=== PATIENT | male | born 1940 | race Caucasian/White ===

== ENCOUNTER → 2016-08-20 | Outpatient (CLI) | payer MEDICARE, MEDICAID ==
[~2016-08-20] MED LIST: AC325T PO; ALBU2.5V12 INH; ALBU2.5V4 INH; ALBU8.5H4 IH; ASPI-586 PO; ASPI325T4 PO; ATEN100T13 PO; ATN50T PO; AZTH250C PO; BDS2MA INH; BENZ200C43 PO; BISM262O24 PO; BSC10SU PR; BUDE0.253 INH; CARB400T PO; CRB200T PO; DOCU-243 PO; DUONEB 0.5 MG-33 ML IH; ENXP40I.4 SC; FLC1T PO; GFN600TCR PO; GUAI600T45 PO; HOME MEDS; HYPR15DR11 OP; IPRA0.2S50 IH; LEVE250T5 PO; LEVO500T16 PO; LISI-594 PO; LORA0.5T PO; LSNP10T PO; LSNP20T PO; MAG-65 PO; MAGN800O PO; METH4TAB27 PO; MORP15TA PO; MORP15TA8 PO; MORP30TA16 PO; MORP60CP12 PO; MULT-955 PO; NF-ESOM40C PO; NITR0.4T7 SL; OMEP20CA12 PO; ONDN4T PO; PHEN32.4 PO; PHEN60TA9 PO; POLYETHYLENE GL17 GM PO; PRD10T PO; PREN1TAB71 PO; RSP.25T PO; SERT50TA2 PO; Sodium Chloride IV; TAMS-8 PO; THIA100T66 PO; TIOT18CA IH; ZLP10T PO
--- NOTE | 2016-08-20 13:39 | Diagnostic Imaging Report ---
PROCEDURE: CT abdomen and pelvis without contrast. TECHNIQUE: Multiple contiguous axial images were obtained through the abdomen and pelvis without the use of intravenous contrast. INDICATION: Abdominal aortic aneurysm. FINDINGS: There is a dense area of consolidation at the left lung base suspicious for pneumonia. There is tortuosity of the abdominal aorta. There is calcific atherosclerosis. There is aneurysmal dilatation of the infrarenal segment of the abdominal aorta. It has maximum transverse measurements of 49 x 48 mm. It is not appreciably changed in comparison with exam from 02/04/2016. There is no evidence of rupture. The liver appears normal. The gallbladder is present. Spleen is not enlarged. Adrenals and kidneys are unremarkable. There are degenerative changes of the spine. Prostate is enlarged. IMPRESSION: Infrarenal abdominal aortic aneurysm appears unchanged compared to 02/04/2016. There is an infiltrate present at the left lung base suspicious for pneumonia. Dictated by: Dictated on workstation # [id number]
== END ==
LOC: RAD 09:56
PROVIDERS: ATTEND Surgery
DX: I71.4 Abdominal aortic aneurysm, without rupture (principal)
CPT/HCPCS: 74176

== ENCOUNTER → 2016-11-28 | Emergency (ER) | payer MEDICARE, MEDICAID ==
[~2016-11-28] VITALS: Ht 177.8 cm; Wt 57.4 kg
[~2016-11-28] MED LIST changes: +ALBUTEROL 0.083% NEB SOLUTION 2.5 MG/3 ML VIAL INH ONE; +GUAI120013 PO; +IBP200T PO; +MORP30TA60 PO; +NS IV 500 ML 500 ML IV SCH; +PENT400T2 PO; +POLY17PO6 PO; +SODIUM CHLORIDE FLUSH 10 ML SYR IV PRN; +SODIUM CHLORIDE FLUSH 3 ML SYR IV ONE; +[UNRECOGNIZED DRUG - CODE] PO
--- OUTSIDE RECORDS SUMMARY | 2016-11-28 10:47 | XMS REPORT | Continuity of Care Document ---
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 Role Phone [employer] Unavailable Unavailable Problems Problem Status Onset Date Classification Date Reported Comments Source Epileptic seizures Active Medical 11/27/2006 [facility] Angiography of coronary bypass, unilateral selective injection Active Medical 11/27/2006 [facility] Medications Medication Details Route Status Patient Instructions Ordering Provider Order Date Source Lortab 5/500 oral tablet PO Completed hold for sedation ONI 05/28/2010 [facility] Allergies, Adverse Reactions, Alerts Substance Category Reaction Severity Reaction type Status Date Reported Comments Source penicillin Datatype(AL1.2)-Drug Allergy ACTIVE 09/12/2012 [facility] NKA CANCELED 09/12/2012 [facility] Immunizations Immunization Date Given Site Status Last Updated Comments Source pneumococcal 23-valent vaccine 08/31/2010 Left Deltoid completed SEARS [facility] Results Order Name Results Value Reference Range Date Interpretation Comments Source Discharge Summary Discharge Summary DATE OF ADMISSION: 09/09/2010 DATE OF DISCHARGE: 09/10/2010 FINAL DIAGNOSES: Acute alcohol intoxication.Polysubstance abuse.Recent community-acquired pneumonia.Recent acute exacerbation of chronic obstructive pulmonary disease.Tobacco abuse.Seizure disorder.History of cerebrovascular accident.Hypertension.Hyperlipidemia.Medical noncompliance. CONSULTANTS: None. PROCEDURES PERFORMED: None. HISTORY OF PRESENT ILLNESS AND ADMITTING PHYSICAL EXAM: Both are well documented in the History and Physical. HOSPITAL COURSE: This patient was admitted for acute alcohol intoxication. He had just been discharged from the hospital several hours before. He had proceeding to a friends house where he took some Lortab and drank 1 pint of whiskey. He then became lethargic and urinated on her floor, prompting her to call paramedics who took her to the Emergency Department where he was readmitted. He has no intention to stop drinking alcohol. He is not interested in alcohol treatment. He has been released recently from the [facility] where he was incarcerated for multiple serial offenses of driving while intoxicated apparently. He has an unstable social situation. He has apparently been band from the [facility], as well as another homeless senior living in [facility]. He has 1 daughter who has not spoken to him in 25 years because of his behavior and alcoholism. He is medically stable for discharge at this time, but placement is pending. workforce services representative is working closely with him. He is at this time refusing to consider senior living placement or treatment for alcohol and drug abuse. PHYSICAL EXAMINATION: VITAL SIGNS: Temperature 36.5, pulse 71, respiratory rate 16, blood pressure 149/81. HEENT: Head: Normocephalic and atraumatic. Pupils: Equally round and reactive to light. Extraocular muscles: Intact. Oropharynx: Clear. Mucous membranes: Moist. NECK: Supple. No jugular venous distention or thyroid enlargement. CARDIOVASCULAR: Regular rate and rhythm. PULMONARY: Clear bilaterally. No rales, rhonchi, or wheezes. GI: Abdomen soft, nontender to palpation, nondistended. Normoactive bowel sounds are present. No masses or hepatosplenomegaly. MUSCULOSKELETAL: Extremities are warm and dry with no cyanosis, clubbing, or edema. NEUROLOGICAL EXAM: Nonfocal. DISCHARGE MEDICATIONS: Tylenol 650 mg every 4 hours as needed for pain or fever.Albuterol inhaler 2 puffs q.i.d.Aspirin 81 mg daily.Atenolol 100 mg daily.Atrovent inhaler 2 puffs q.i.d.Budesonide nebulizer 0.5 mg every 12 hours.Tegretol 400 mg b.i.d.Levaquin 750 mg daily.Lisinopril 10 mg daily.[place] nasal spray every 4 hours as needed.Phenobarbital 200 mg b.i.d.Prednisone taper as directed.Albuterol and Atrovent nebulizer every 4 hours. DIET: Step 1. No alcohol. ACTIVITY: As tolerated. FOLLOW-UP: Patient is to follow up with the [facility] in 1 week. DICTATED BY: Tammy Haro cc:[employer] TR: alma DR: DE: JOB#: [id number] [Electronically Signed on 09.10.2010 12:40 pm] Tammy Haro, DO </br> 09/10/2010 [Electronically Signed on 09.10.2010 12:40 pm] Tammy Haro DO [facility] Emergency Room Documents Emergency Room Documents Patient: SANTOS THOMAS Age: 70 years Sex: Male : 1940 Associated Diagnoses: None Author: Cam Nino MD Basic Information History source: [facility]. Vital signs: , First ED Vitals (09/09/10 19:28) Temp BP Pulse RR SAO2 O2 Flow Rate MAP 36.9 149/73 80 20 95 Most Recent Vitals (as of 09/09/10 22:30) Temp BP Pulse RR SAO2 O2 Flow Rate MAP 36.9 112/62 79 20 97 Vitals Range (09/09/10 19:28 to 09/09/10 22:30) Temp BP Pulse RR SAO2 O2 Flow Rate MAP 36.9 96-149 71-80 20 95-97 50-94 Oxygen saturation: Oxygen Therapy & Oxygenation Information, 09/09/10 19:28 Oxygen Therapy Room air Oxygen Saturation 95 % 09/09/10 11:28 Oxygen Therapy Room air Oxygen Saturation 95 % 09/09/10 09:41 Oxygen Therapy Room air Oxygen Saturation 97 % 09/09/10 08:16 Oxygen Therapy Room air Oxygen Saturation 96 % 09/09/10 08:11 Oxygen Therapy Room air Oxygen Saturation 98 % 09/09/10 08:10 Oxygen Therapy Room air Oxygen Saturation 96 % 09/09/10 06:10 Oxygen Therapy Room air 09/09/10 04:13 Oxygen Therapy Room air 09/09/10 03:44 Oxygen Therapy Room air Oxygen Saturation 96 % 09/09/10 02:09 Oxygen Therapy Room air 09/09/10 00:30 Oxygen Therapy Room air 09/08/10 23:31 Oxygen Therapy Room air Oxygen Saturation 94 % 09/08/10 23:14 Oxygen Therapy Room air Oxygen Saturation 94 % 09/08/10 22:07 Oxygen Therapy Room air 09/08/10 21:41 Oxygen Therapy Room air Oxygen Saturation 98 % 09/08/10 20:27 Oxygen Therapy Room air 09/08/10 20:13 Oxygen Therapy Room air Oxygen Saturation 99 % 09/08/10 15:59 Oxygen Therapy Room air Oxygen Saturation 96 % 09/08/10 15:50 Oxygen Therapy Room air Oxygen Saturation 93 % 09/08/10 12:26 Oxygen Therapy Room air Oxygen Saturation 92 % 09/08/10 12:10 Oxygen Therapy Room air Oxygen Saturation 92 % 09/08/10 08:20 Oxygen Therapy Room air Oxygen Saturation 92 % 09/08/10 08:19 Oxygen Therapy Room air Oxygen Saturation 92 % 09/08/10 08:18 Oxygen Therapy Room air Oxygen Saturation 91 % 09/08/10 06:00 Oxygen Therapy Room air 09/08/10 04:51 Oxygen Therapy Room air Oxygen Saturation 94 % 09/08/10 04:40 Oxygen Therapy Room air 09/08/10 02:17 Oxygen Therapy Room air 09/08/10 01:11 Oxygen Therapy Room air Oxygen Saturation 96 % 09/08/10 00:42 Oxygen Therapy Room air Measurements. 09/09/10 03:48 Height 172.7 cm Weight Weight Weight 69.000 kg Scale Digital (Pt. & bed) Current BMI 23 09/08/10 15:49 Height 172.7 cm Weight 67.400 kg Admission Weight 67.20 kg [place] Body Weight Adult 70.5 kg Percent [place] Body Weight 96 % Body Mass Index 22.6 09/08/10 04:51 Height 172.7 cm Weight 67.400 kg Weight Weight Scale Digital (Pt. & bed) Current BMI 23 Arrival mode: Ambulance. Medications: . Prescriptions and Home Medications aspirin, 81 mg, daily PO, 0, 0 atenolol, 100 mg, daily PO, 0, 0 lisinopril, 10 mg, daily PO, 0, 0 phenobarbital, 200 mg, BID ipratropium (Atrovent HFA), 2 Puff(s), INH, QID albuterol (Albuterol HFA), 4 mg, INH, QID carbamazepine, 400 mg, 2 Tab, PO, BID Sabx-Xjtlxhtdl-Qnlkeeemijp, 3 mL, NEB, RQ4H, dispense 1 month supply with no refills acetaminophen, 650 mg, 2 Tab, PO, Q4H, PRN: Temp >38.4 C Resp-Budesonide (budesonide 1 mg/2 mL inhalation suspension), See Instructions, 0.5 mg po q12 hours acetaminophen-hydrocodone (Lortab 5/500 oral tablet), 1 Tab, PO, Q4H, hold for sedation, 180 Tab, PRN: pain sodium chloride nasal ([place]), 1 [place], NASAL, Q4H, 1 EA, PRN: Nasal Congestion predniSONE (predniSONE 10 mg oral tablet), 10 mg, 1 Tab, PO, daily, Take 40 mg for 3 days then 30 mg for 3 days then 20 mg for 3 days then 10 mg for 3 days then stop., Tab levofloxacin (Levaquin 750 mg oral tablet), 750 mg, 1 Tab, PO, daily, 4 Tab Allergies: . Allergic Reactions (Selected) Severity not Documented Penicillin- No reactions were documented. History limitation: Clinical condition. Notes: Chief Complaint from Nursing Triage Note : Reason for Visit Additional Info, 09/09/10 19:28 Reason for Visit Additional Info PT JUST RELEASED FROM HOSPITAL THIS AM. PT WAS STAYING WITH SOME FRIENDS IRENA, SHE TOOK HIS LORTAB AND DRANK A PINT OF WHISKEY. FRIENDS COULD NOT TAKE CARE OF HIM , PT WAS INCONTINENT OF URINE. . Health History ED ED Cardiac Medical History: Yes, open heart, ED Dyslipidemia: Yes, on meds ED Respiratory Medical History: Yes, copd ED Neurological Medical History: Yes, seziures ED Diabetes Medical History: No ED High Blood Pressure Medical History: Yes, on meds ED Currently : No ED LMP: No ED Previous Surgeries: Yes, left shoulder, left leg ED Other Medical Hx: No ED Smoking Hx: Yes, 1/2ppd Exposed to Second Hand Smoke: Yes ED Tetanus < 5 years: No History of Present Illness The patient is a 70 years old Male who presents with alcohol intoxication. The last alcohol intake was unknown. Amount: Whiskey and Lortab, unclear amount. Eligibility for legal hold: negative. Other substances ingested: unknown. Circumstances of ingestion: recreational. Patient was returned to the ED via EMS after leaving the hospital today. Patient had been treated for community aquired pneumonia and was discharged into [facility] care. Patient reportedly left and began drinking whiskey and taking his Lortab. Patient became increasingly somnolent and began urinating on the floor. The people were unable to continue his care and returned him to the ED. . The patient is a 70 years old Male who presents with altered mental status. Duration lasting since leaving the hospital today. The onset was gradual. The course is constant. Altered mental status symptoms confusion and speech difficulty. Social dysfunction: need for help with activities of daily living. The exacerbating factor is medication change. The mitigating factor is negative. substance(s) ingested: Positive alcohol use. The risk factor is medication(s). Prior episodes: Chronic alcohol abuse. Associated Symptoms Icterus: Negative. Chest pain: Negative Diaphoresis: None. Difficulty breathing: None. Difficulty swallowing: None. Nausea: Negative. Vomiting episodes: Negative. Abdominal pain: Negative Baseline neuro change: Negative. Review of Systems Peptic disease history: Unknown. Liver disease history: Unknown. Immunocompromise: Negative. Coagulopathy: Negative. Psychiatric symptoms: Negative. Psychiatric admission history: No. Drug or alcohol treatment: None. Alcohol withdrawal history: Negative. Other significant review of systems Unable to obtain due to: altered mental status Past Medical/ Family/ Social History Medical history: Reviewed as documented in chart, Cardiac: Coronary artery disease, Respiratory: Chronic obstructive pulmonary disease, Additional significant medical history: Alcoholism, PNEUMONIA. Surgical history: Reviewed as documented in chart, angioplasty, CABG. Family history: Reviewed as documented in chart, Coronary Artery Disease. Social history: Reviewed as documented in chart, Alcohol: Uses alcohol regularly , history of alcohol abuse, Tobacco: Uses tobacco products regularly, smokes 1 pack(s) per day, Drugs: Denies drug use, Occupation: Retired, Family/social situation: , lives alone. Physical Examination General appearance: No acute distress. Skin: Warm. Dry. Facial: Within normal limits Scalp: Within normal limits. Neck: Supple. Eye: Pupils equal, round, and reactive to light. Extraocular movements intact. Ears, nose, mouth and throat: Oral mucosa moist Heart: Regular rate and rhythm, normal S1 & S2. Respiratory: Lungs clear to auscultation bilaterally. Respirations nonlabored. Abdominal: Normal bowel sounds. Soft. Nontender. Neurological: Alert. No focal neuro deficits. Level of consciousness lethargic. Psychiatric: Agitated. Medical Decision Making Clinical work-up/Interpretation Electrocardiogram: Time 09/09/2010 19:58:00. Rate: 79. Normal sinus rhythm. No ST-T changes. No ectopy. Normal NV & QRS intervals. Previous EKG available: no changes. Interpretation by Emergency Physician: no ischemic changes. Results: Lab View. 09/09/10 03:50 WBC 9.0 x10^3/uL RBC 4.03 x10^6/uL LOW Hgb 11.8 gm/dL LOW Hct 34.2 % LOW MCV 85 fL MCH 29.3 pg MCHC 34.5 gm/dL RDW 16.2 % HI Platelet 261 x10^3/uL Chest X-Ray: Interpretation by Emergency Physician, Chronic interstitial infiltrates. Calls-Consults: Masood Cochran MD. Reexamination/Reevaluation Reexamination: Course: improving. Impression and Plan Diagnosis Continuous alcohol abuse 305.01 (ICD9 305.01, Discharge, Emergency medicine, Medical) Drug abuse 305.90 (ICD9 305.90, Discharge, Emergency medicine, Medical) Altered mental status ([facility] [id number], Discharge, Medical) Discharge plan Condition: Unchanged. Admit: Time 09/09/2010 22:54:00, To Inpatient Unit. Emergency Medical Treatment and Active Labor Act/Prudent layperson: Emergency Medical Condition Exists at Discharge: Present. 09/09/2010 [facility] DRUGS Amphetamine Level Negative 09/09/[address] [facility] [address] Head W/O Contrast CT Head W/O Contrast CT HEAD WITHOUT CONTRAST INDICATION: Headaches. Comparison is made with prior exam dated . Non contrasted axial CT of the head was performed. There is no evidence of calvarial injury. No extracalvarial soft tissue swelling seen. There is no midline shift or mass effect. The ventricular system appears stable. The mcdonough-white matter junction appears stable. Severe atrophy is noted. Moderate deep white matter chronic small vessel disease is present. Paranasal sinuses appear to be clear. IMPRESSION: Stable, No acute findings. Final Report Dictated By: Chase Gardner MD Signed By: Chase Gardner MD Signed Dt/tm: 09/09/2010 21:39 Transcribed Dt/tm: 09/09/2010 21:39</br> Clinical History Current History Pts. friends state "he drank a pint of whiskey." Pt. uncontrollable. Incontinant of urine. Previous History/Surgery / 09/09/2010 Final Report Dictated By: Chase Gardner MD Signed By: Chase Gardner MD Signed Dt/tm: 09/09/2010 21:39 Transcribed Dt/tm: 09/09/2010 21:39 [facility] CHEM12 eGFR >60 mL/min >=60 09/09/2010 N Estimated eGFR Non calculated using MDRD study equation Result Verified by Discern Expert. The MDRD GFR formula is valid only for adults between 18 and 85 years of age. [facility] CHEM12 eGFR () >60 mL/min >=60 2010 N Estimated GFR for an calculated using MDRD study equation. Result Verified by Discern Expert. [facility] ALC Alcohol Level 125.1 mg/ dL - <=3.0 09/09/2010 HI Results are for medical use only. [facility] SILVIA Amylase 39 IU/L 23 - 85 09/09/2010 N [facility] CHEM12 Glucose Level 64 mg/ dL 60 - 99 09/09/2010 N [facility] CKMB CK MB 2.3 ng/mL 0.0 - 3.6 09/09/2010 N [facility] CPK CPK 85 IU/L 21 - 232 09/09/2010 N [facility] LIP Lipase 102 U/L 73 - 393 09/09/2010 N [facility] TROPON Troponin <0.04 ng/mL - <=0.09 09/09/2010 N Result Range Troponin Interpretation <0.1 ng/ml No evidence of myocardial ischemia 0.1 - 0.6 ng/ml Possible myocardial ischemia (ACS) >0.6 ng/ml Acute myocardial infarction (AMI) [facility] APTT APTT 29.1 second(s) 20.5 - 31.0 09/09/2010 N [facility] Protime INR 0.96 - <=1.20 09/09/2010 N Therapeutic range for INR is 2.0-3.0, except for mechanical prosthetic valves and recurrent myocardial infarction where therapeutic range is 2.5-3.5. [facility] CHEM12 Sodium 129 mmol/L 135 - 145 09/09/2010 LOW [facility] -RBC Morphology RBC Morph Normal Normal 09/09/2010 N Discern Expert [facility] [employer] -Auto Diff Abs Lymph 2.700 x10^3/uL .800 - 4.320 2010 N [facility] CBC with Diff MCH 29.0 pg 27.0 - 31.0 09/09/[address] [facility] DX Chest 1 View DX Chest 1 View SANTOS SANTAMARIAISER SINGLE VIEW CHEST INDICATION: Shortness of breath, chest pain. TIME OF EXAMINATION: 09/09/2010. COMPARISON: 09/07/2010. The heart is normal. There is a tortuous aorta. The lungs demonstrate chronic interstitial changes. No focal consolidation is seen. Patchy opacities are again noted in the right lung. IMPRESSION: Nonspecific patchy opacities, stable chest compared to prior examination of 09/07/2010. Final Report Dictated By: Chase Gardner MD Signed By: Chase Gardner MD Signed Dt/tm: 09/09/2010 23:31 Transcribed By: AC Transcribed Dt/tm: 09/09/2010 23:27</br> Clinical History Current History increased sob x 2 days, productive cough Previous History/Surgery epilepsy, open heart, copd, htn, smoker 09/09/2010 Final Report Dictated By: Chase Gardner MD Signed By: Chase Gardner MD Signed Dt/tm: 09/09/2010 23:31 Transcribed By: AC Transcribed Dt/tm: 09/09/2010 23:27 [facility] Discharge Summary Discharge Summary DATE OF ADMISSION: 09/06/2010 DATE OF DISCHARGE: 09/09/2010 FINAL DIAGNOSES: 1.Community-acquired pneumonia. 2.Chronic obstructive pulmonary disease with acute exacerbation. 3.Tobacco abuse. 4.Alcohol abuse. 5.Seizure disorder. 6.History of cerebrovascular accident. 7.Hypertension. 8.Hyperlipidemia. 9.Hypokalemia. 10.Medical noncompliance. CONSULTANTS: None. PROCEDURES PERFORMED: None. History of present illness and admitting physical examination are both well- documented in the History and Physical. HOSPITAL COURSE: The patient was readmitted to the hospital 5 days after being discharged for an acute exacerbation of chronic obstructive pulmonary disease. It was felt that he had been noncompliant at home and had resulted smoking. He was coughing and more short of air. His x-ray showed some patchy infiltrate on the right side. He was placed on Rocephin and Zithromax as well as Solu-Medrol nebulized bronchodilators. He has gradually improved. He does abuse whiskey as well. He was placed on alcohol withdraw protocol. Today, he is back on room air. His breathing is at baseline. He is eager to go home. This time, he is going to go home with some friends and stay in their house. Will order Home Health Services for him as well. He is medically stable for discharge. PHYSICAL EXAMINATION: Vital signs: Temperature 36.4, pulse 76, respiratory rate 16, blood pressure 151/74. Oxygen saturation 96% on room air. HEENT: Head normocephalic, atraumatic; pupils are equal, round and reactive to light; extraocular muscles are intact; oropharynx clear; mucous membranes moist. Neck : Supple, no jugular venous distention or thyroid enlargement. Cardiovascular : Heart regular rate and rhythm. Pulmonary: Chest clear bilaterally with decreased breath sounds at the bases. No rales, rhonchi or wheezes. GI: Abdomen obese, soft, nontender, nondistended, normoactive bowel sounds are present, no masses or hepatosplenomegaly. Musculoskeletal: Extremities are warm and dry with no cyanosis, clubbing or edema. Neurological exam: Nonfocal. DISCHARGE MEDICATIONS: 1.Tylenol 650 mg every 4 hours as needed for fever. 2.Albuterol inhaler 4 times daily. 3.Aspirin 81 mg daily. 4.Atenolol 100 mg daily. 5.Atrovent inhaler 2 puffs 4 times daily. 6.Levaquin 750 mg daily for 4 additional days. 7.Budesonide nebulizer 0.5 mg every 12 hours. 8.Carbamazepine 400 mg b.i.d. 9.Lisinopril 10 mg daily. 10.Lortab 5, 1 every 4 hours as needed for pain. 11.[place] nasal spray as needed. 12.Phenobarbital 200 mg b.i.d. 13.Albuterol and Atrovent nebulizers every 4 hours. 14.Prednisone taper as directed. DIET: Step 1. ACTIVITY: As tolerated. Smoking cessation and alcohol cessation were encouraged. FOLLOW-UP: Patient is to follow-up with [facility] in 1 week. He will have Home Health and home physical therapy as well. DICTATED BY: Tammy Haro cc: TR: len DR: DE: JOB#: [id number] [Electronically Signed on 09.10.2010 08:38 am] Tammy Haro DO </br> 09/09/2010 [Electronically Signed on 09.10.2010 08:38 am] Tammy Haro DO [facility] CBC (NO DIFFERENTIAL) RDW 16.2 % 11.7 - 16.0 2010 [place] [facility] History and Physical History and Physical DATE OF ADMISSION: 09/09/2010 at 192. DATE OF : 1940 HISTORY OF PRESENT ILLNESS: This 70-year-old white male was admitted via the emergency room where he presented at 1928. He had been discharged this morning from this hospital. He was staying with some friends. He took his Lortab and then he drank a pint of whiskey, then he got incontinent and his friend said they could not take care of him. His discharge medications are listed under his home medications. REVIEW OF SYSTEMS: Positive for HPI and PMHx. the remainder is negative on a 10 point system. ALLERGIES: PENICILLIN. PAST MEDICAL HISTORY: Coronary artery disease, dyslipidemia, COPD, seizures, hypertension. PAST SURGICAL HISTORY: He has had open heart surgery. He has had a left shoulder surgical and left leg surgery. SOCIAL HISTORY: He still drinks consistently, too much. Smokes a half a pack of cigarettes a day, which is down from where he was because he could only smoke a half a pack today. He was only out of here a half a day. He came in with altered mental status, confusion, having trouble with speech. PHYSICAL EXAMINATION: Vital signs: His vital signs on admission show a height of 172.7 cm, weight 68.5 kg. BMI is 23. Temperature is 36.9. Pulse 75. Respirations 22. Blood pressure is 162/87. Pulse ox on room air 95% to 97%. HEENT: The head is normocephalic. Pupils are equal, round, and reactive to light. Extraocular muscles are grossly intact. Chest: Decreased breath sounds overall with some prolonged expiratory time. I do not hear any wheezes, rales or rhonchi at the moment. LABORATORY DATA: Laboratory studies are reviewed as well. His blood alcohol was 125. IMPRESSION: 1. Acute on chronic alcoholism, acutely intoxicated. 2. Chronic obstructive pulmonary disease, recent pneumonia. 3. Obvious incapacity to care for self. PLAN: Admit until he can be sobered up. Then he needs to be placed in some facility to help prevent his alcohol intake recurrence. Otherwise, this gentleman is going to wind up from his alcoholism and his underlying multiple medical problems. He is to follow up with [facility] in a week. We are trying to get home health and home PT. My intent was to try to get him to skilled, but he would not go. DICTATED BY: Masood Cochran cc: TR: ross DR: DE: JOB#: [id number] [Electronically Signed on 09.15.2010 01:15 pm] Masood Cochran MD </br> 09/09/2010 [Electronically Signed on 09.15.2010 01:15 pm] Masood Cochran MD [facility] Progress Note Progress Note Patient: SANTOS THOMAS Age: 70 years Sex: Male : 1940 Associated Diagnoses: None Author: Masood Cochran MD Subjective He is more alert today and seems to be oriented today. He is feeling better today and is asking to go home. I told him we would not even talk about it until tomorrow and no promises even then. Objective Problem list: . All Problems Angiography of coronary bypass, unilateral selective injection / [id number] / Confirmed Epileptic seizures / [id number] / Confirmed Fall risk / [id number] / Possible Pain / [id number] / Confirmed Visual impairment / [id number] / Confirmed Procedure History: . left shoulder in 2009 at 69 Years. open heart in 1999 at 59 Years. open heart in 1995 at 55 Years. left ankle in 1993 at 53 Years. Vitals (24 hour summary) Temperature Heart Rate Respiratory BP Sys BP Leticia O2 Sat Height Weight 36.3 - 37.0 63 - 86 16 - 23 127 - 145 70 - 93 91 - 98 172.7 cm 67.400 kg Most Recent Vitals (09/08/10 08:18 - 09/08/10 08:20) 36.5 74 18 141 70 92 Intake & Output Summary (09/07/10 07:00 to 09/08/10 06:59) Intakes Units Total Oral Intake mL 1140 Sodium Chloride 0.45% with 20meq KCl 1,000 mL mL 870 azithromycin mL 500 ceftriaxone mL 50 methylprednisolone mL 8 Oral Intake mL 960 Outputs Units Total Urine Voided mL 2850 Summary Kinrbe=[id number] Arozpg=4091 Mktxtfj=177 Medication Dose Frequency acetaminophen 650 mg=2 Tab PRN, Q4H acetaminophen-hydrocodone 1 Tab PRN, Q4H aspirin 81 mg=1 Tab daily atenolol 100 mg=2 Tab daily azithromycin 500 mg=2 Tab Q24H, 4 Dose(s) carbamazepine 400 mg=2 Tab BID ceftriaxone 1 gm=50 mL Q24H enoxaparin 40 mg=0.4 mL Q24H lisinopril 10 mg=1 Tab daily lorazepam 4 mg=2 Tab PRN, Q2H lorazepam 4 mg=2 mL PRN, Q2H methylprednisolone 125 mg=2 mL Q6H ondansetron 4 mg=2 mL PRN, Q6H pantoprazole 40 mg=1 Tab daily phenobarbital 200 mg=2 Tab BID Resp-Albuterol- 3 mL RQ4H Ipratropium Resp-Albuterol- 3 mL PRN, RQ2H Ipratropium Resp-Budesonide 0.5 mg=2 mL RBID sodium chloride nasal 1 [place] PRN, Q4H temazepam 15 mg=1 Cap PRN, AT BEDTIME IV Drip Medication Dose Rate Sodium Chloride 0.45% 1,000 mL 100 mL/hr with 20meq KCl 1,000 mL Results Review: Laboratory Results: . Procedure 09/08/10 09/07/10 09/06/10 Complete Blood Count WBC: 10.1 23:15 RBC: 4.78 23:15 Hgb: 14.1 23:15 Hct: 40.4 23:15 MCV: 85 23:15 MCH: 29.5 23:15 MCHC: 34.9 23:15 RDW: H 16.7 23:15 Platelet: 296 23:15 Differential Segs Auto: 70 23:15 Lymph Auto: 21 23:15 Evans Auto: 8 23:15 Eos Auto: 0 23:15 Baso Auto: 0 23:15 Abs Neutro: 7.010 23:15 Abs Lymph: 2.140 23:15 Abs Evans: .830 23:15 Abs Eos: .020 23:15 Abs Baso: .020 23:15 RBC Morph: Normal (23:15) General Chemistry Total Protein: 6.6 03:40 6.7 23:15 Albumin Level: L 2.9 03:40 L 3.1 23:15 Calcium: L 8.1 03:40 L 8.3 23:15 Bili Total: 0.3 03:40 0.3 23:15 Alk Phos: H 150 03:40 H 178 23:15 Sodium: L 133 03:40 137 23:15 Potassium: 3.7 03:40 L 3.3 23:15 Chloride: L 93 03:40 98 23:15 TCO2: 29 03:40 32 23:15 Glucose Level: H 328 03:40 H 127 23:15 BUN: 10 03:40 11 23:15 Creatinine: .8 03:40 .7 23:15 eGFR: >60 03:40 >60 23:15 eGFR (): >60 03:40 >60 23:15 ALT/GPT: 56 03:40 57 23:15 AST/GOT: H 49 03:40 H 48 23:15 CPK: 43 23:15 CK MB: 1.1 23:15 Troponin: <0.04 23:15 Ammonia: 24 23:27 Alcohol Level: H 186.8 03:40 H 346.3 23:27 Microbiology Additional Testing Influenza A: Negative (23:27) Influenza B: Negative (23:27) Microbiology Procedure Collected At Culture Blood - Antecub R / Blood 09/06/10 23:15 Pre: No growth in 24 hours. Culture Blood - Antecub R / Blood 09/06/10 23:35 Pre: No growth in 24 hours. Culture Sputum - / Sputum Not started pending Respiratory Results: . No BIPAP or Ventilator settings found for this visit. Radiology Results: . DX Chest 2 View 09/07/10 16:47 1. Severe emphysema. 2. Patchy opacities in the right lung may represent early pneumonic process. Suggest clinical correlation. 3. The left lung is clear.4. The heart is normal in size with changes of previous coronary artery bypass graft surgery Cardiology Results: . No Cardiology documents found within previous day. Pathology Results: . No Pathology documents found within previous day. Physical Examination: General: Mild distress. Eye: Pupils are equal, round and reactive to light, Extraocular movements are intact, Normal conjunctiva. HENT: Normocephalic, Oral mucosa is moist. Neck: Supple, No jugular venous distention. Respiratory: Respirations: Improved. Pattern: Regular. Breath sounds: Bilateral, Diminished, Rhonchi present (scattered). Cardiovascular: Normal rate, Regular rhythm. Gastrointestinal: Soft, Non-tender, Non-distended, Normal bowel sounds. Genitourinary: Exam deferred. Musculoskeletal: Mobility/ gait: Able to walk with minimal assistance, Upper extremity exam is within normal limits, Lower extremity exam is within normal limits. Neurologic: Alert. Coordination: Mild delayed. Altered level of consciousness: Confused (Mildly). Psychiatric: Cooperative. Assessment Shortness of breath ([facility] 519500997) Pneumonia 486 (ICD9 486) COPD with acute exacerbation 491.21 (ICD9 491.21) Epilepsy, Unspecified, without Mention of Intractable Epilepsy (ICD9 345.90) Plan CONTINUE CURRENT ORDERS AND TREATMENTS We will continue IV fluids and antibiotics for min 72 hours. 09/08/2010 [facility] DX Chest 2 View DX Chest 2 View [facility] CHEST TWO VIEWS INDICATION: Evaluate for pneumonia. Cough, fever and shortness of breath. COMPARISON STUDY: 09/06/2010 and 09/01/2010. The patient examined in the wheelchair. There is a faint interstitial alveolar process in the right mid and right lower lung, suspicious for developing pneumonia. Ill-defined hazy opacities are seen in the right upper lung as well. Again changes of severe pleural parenchymal calcification seen along the right chest, unchanged from prior studies. Both lungs are hyperaerated from moderate to severe emphysema. The heart is upper normal in size and there are sternal sutures and clips from previous CABG surgery. There is no large pleural effusion. The skeletal structures remain unchanged. IMPRESSION: 1. Severe emphysema. 2. Patchy opacities in the right lung may represent early pneumonic process. Suggest clinical correlation. 3. The left lung is clear. 4. The heart is normal in size with changes of previous coronary artery bypass graft surgery. Final Report Dictated By: Ian Fu MD Signed By: Ian Fu MD Signed Dt/tm: 09/07/2010 23:39 Transcribed By: AC Transcribed Dt/tm: 09/07/2010 22:23</br> Clinical History Current History weakness, multiobar pneumonia 09-06-10, Previous History/Surgery copd, epilepsy, smoker 09/07/2010 Final Report Dictated By: Ian Fu MD Signed By: Ian Fu MD Signed Dt/tm: 09/07/2010 23:39 Transcribed By: AC Transcribed Dt/tm: 09/07/2010 22:23 [facility] Care Progress Note Progress Note Patient: SANTOS THOMAS Age: 70 years Sex: Male : 38 Associated Diagnoses: None Author: Masood Cochran MD Subjective He is a little confused about some things. Objective Problem list: . All Problems Angiography of coronary bypass, unilateral selective injection / [id number] / Confirmed Epileptic seizures / 177099072 / Confirmed Fall risk / 9200730808 / Possible Pain / 93078602 / Confirmed Visual impairment / 3532589725 / Confirmed Procedure History: . left shoulder in 2009 at 69 Years. open heart in 1999 at 59 Years. open heart in 1995 at 55 Years. left ankle in 1993 at 53 Years. Vitals (24 hour summary) Temperature Heart Rate Respiratory BP Sys BP Leticia O2 Sat Height Weight 36.1 - 36.9 63 - 112 16 - 26 115 - 147 54 - 84 86 - 98 172.7 cm 67.200 kg Most Recent Vitals (09/07/10 12:13 - 09/07/10 12:13) 36.5 79 18 144 84 98 Intake & Output Summary (09/06/10 07:00 to 09/07/10 06:59) Intakes Units Total Oral Intake mL 720 Sodium Chloride 0.9% 1,000 mL + multivitamin 10 mL + thiamine 100 mg + folic acid 1 mg mL 500 levofloxacin mL 0 lorazepam mL 2 methylprednisolone mL 2 Outputs Units Total Urine Voided mL 350 Summary Slbphp=9642 Vstzbg=479 Tzwurzp=207 Medication Dose Frequency acetaminophen 650 mg=2 Tab PRN, Q4H acetaminophen-hydrocodone 1 Tab PRN, Q4H aspirin 81 mg=1 Tab daily atenolol 100 mg=2 Tab daily azithromycin 500 mg=2 Tab Q24H, 4 Dose(s) carbamazepine 400 mg=2 Tab BID ceftriaxone 1 gm=50 mL Q24H enoxaparin 40 mg=0.4 mL Q24H lisinopril 10 mg=1 Tab daily lorazepam 4 mg=2 Tab PRN, Q2H lorazepam 4 mg=2 mL PRN, Q2H methylprednisolone 125 mg=2 mL Q6H ondansetron 4 mg=2 mL PRN, Q6H pantoprazole 40 mg=1 Tab daily phenobarbital 200 mg=2 Tab BID Resp-Albuterol- 3 mL RQ4H Ipratropium Resp-Albuterol- 3 mL PRN, RQ2H Ipratropium Resp-Budesonide 0.5 mg=2 mL RBID sodium chloride nasal 1 [place] PRN, Q4H temazepam 15 mg=1 Cap PRN, AT BEDTIME IV Drip Medication Dose Rate Sodium Chloride 0.45% 1,000 mL 100 mL/hr with 20meq KCl 1,000 mL Results Review: Laboratory Results: . Procedure 09/07/10 09/06/10 09/05/10 Complete Blood Count WBC: 10.1 23:15 RBC: 4.78 23:15 Hgb: 14.1 23:15 Hct: 40.4 23:15 MCV: 85 23:15 MCH: 29.5 23:15 MCHC: 34.9 23:15 RDW: H 16.7 23:15 Platelet: 296 23:15 Differential Segs Auto: 70 23:15 Lymph Auto: 21 23:15 Evans Auto: 8 23:15 Eos Auto: 0 23:15 Baso Auto: 0 23:15 Abs Neutro: 7.010 23:15 Abs Lymph: 2.140 23:15 Abs Evans: .830 23:15 Abs Eos: .020 23:15 Abs Baso: .020 23:15 RBC Morph: Normal (23:15) General Chemistry Total Protein: 6.6 03:40 6.7 23:15 Albumin Level: L 2.9 03:40 L 3.1 23:15 Calcium: L 8.1 03:40 L 8.3 23:15 Bili Total: 0.3 03:40 0.3 23:15 Alk Phos: H 150 03:40 H 178 23:15 Sodium: L 133 03:40 137 23:15 Potassium: 3.7 03:40 L 3.3 23:15 Chloride: L 93 03:40 98 23:15 TCO2: 29 03:40 32 23:15 Glucose Level: H 328 03:40 H 127 23:15 BUN: 10 03:40 11 23:15 Creatinine: .8 03:40 .7 23:15 eGFR: >60 03:40 >60 23:15 eGFR (): >60 03:40 >60 23:15 ALT/GPT: 56 03:40 57 23:15 AST/GOT: H 49 03:40 H 48 23:15 CPK: 43 23:15 CK MB: 1.1 23:15 Troponin: <0.04 23:15 Ammonia: 24 23:27 Alcohol Level: H 186.8 03:40 H 346.3 23:27 Microbiology Additional Testing Influenza A: Negative (23:27) Influenza B: Negative (23:27) Microbiology Procedure Collected At Culture Blood - Antecub R / Blood 09/06/10 23:15 Pre: No growth to date Culture Blood - Antecub R / Blood 09/06/10 23:35 Pre: No growth to date Culture Sputum - / Sputum Not started pending Respiratory Results: . No BIPAP or Ventilator settings found for this visit. Radiology Results: . DX Chest 1 View 09/06/10 22:59 The heart is normal in size. Changes from previous coronary artery bypass graft surgery. Chronic interstitial lung disease and emphysema. Suspect superimposed pneumonia in the right lung Cardiology Results: . No Cardiology documents found within previous day. Pathology Results: . No Pathology documents found within previous day. Physical Examination: General: Mild distress. Eye: Pupils are equal, round and reactive to light, Extraocular movements are intact, Normal conjunctiva. HENT: Normocephalic, Oral mucosa is moist. Neck: Supple, No jugular venous distention. Respiratory: Respirations: Shallow. Pattern: Regular. Breath sounds: Bilateral, Diminished, Rhonchi present (scattered). Cardiovascular: Normal rate, Regular rhythm. Gastrointestinal: Soft, Non-tender, Non-distended, Normal bowel sounds. Genitourinary: Exam deferred. Musculoskeletal: Mobility/ gait: Able to walk with minimal assistance, Upper extremity exam is within normal limits, Lower extremity exam is within normal limits. Neurologic: Alert. Coordination: Mild delayed. Altered level of consciousness: Confused (Mildly). Psychiatric: Cooperative. Assessment Shortness of breath ([facility] 245222169) Pneumonia 486 (ICD9 486) COPD with acute exacerbation 491.21 (ICD9 491.21) Epilepsy, Unspecified, without Mention of Intractable Epilepsy (ICD9 345.90) Plan CONTINUE CURRENT ORDERS AND TREATMENTS WILL GET A PA AND LATERAL CHEST XRAY. 09/07/2010 [facility] CHEM12 eGFR >60 mL/min >=60 09/07/2010 N Estimated eGFR Non calculated using MDRD study equation Result Verified by Discern Expert. The MDRD GFR formula is valid only for adults between 18 and [address] age[address] [facility] ALC Alcohol Level 186.8 mg/ dL - <=3.0 09/07/2010 HI Results are for medical use only. [facility] CHEM12 Albumin Level 2.9 gm/ dL 3.4 - 5.0 09/07/[address] [facility] Emergency Room Documents Emergency Room Documents Patient: SANTOS THOMAS Age: 70 years Sex: Male : 38 Associated Diagnoses: None Author: Stewart Weston MD Basic Information Vital signs: , First ED Vitals (09/06/10 22:35) Temp BP Pulse RR SAO2 O2 Flow Rate MAP 36.1 137/74 107 22 95 Most Recent Vitals (as of 09/06/10 23:50) Temp BP Pulse RR SAO2 O2 Flow Rate MAP 36.1 137/74 96 22 93 Vitals Range (09/06/10 22:35 to 09/06/10 23:50) Temp BP Pulse RR SAO2 O2 Flow Rate MAP 36.1 137 96-107 22 93-95 74 Oxygen saturation: Oxygen Therapy & Oxygenation Information, 09/06/10 23:50 Oxygen Therapy Room air Oxygen Saturation 93 % 09/06/10 22:35 Oxygen Therapy Room air Oxygen Saturation 95 % Measurements. 09/06/10 22:35 Height 172.7 cm Admission Weight 72.72 kg Scale Stated weight Admission BMI 24.4 Medications: . Continuous Infusion Orders Sodium Chloride 0.9% 1,000 mL + multivitamin 10 mL + thiamine 100 mg + folic acid 1 mg, 100 mL/hr, IV, Stop: 09/07/10 9:44:00 Prescriptions and Home Medications aspirin, 81 mg, daily PO, 0, 0 atenolol, 100 mg, daily PO, 0, 0 lisinopril, 10 mg, daily PO, 0, 0 phenobarbital, 200 mg, BID ipratropium (Atrovent HFA), 2 Puff(s), INH, QID albuterol (Albuterol HFA), 4 mg, INH, QID carbamazepine, 400 mg, 2 Tab, PO, BID Jpyo-Wujswokyz-Hfoobudqqea, 3 mL, NEB, RQ4H, dispense 1 month supply with no refills temazepam (Restoril 15 mg oral capsule), 15 mg, 1 Cap, PO, AT BEDTIME, 30 Tab, PRN: sleep acetaminophen, 650 mg, 2 Tab, PO, Q4H, PRN: Temp >38.4 C Resp-Budesonide (budesonide 1 mg/2 mL inhalation suspension), See Instructions, 0.5 mg po q12 hours levofloxacin (Levaquin 500 mg oral tablet), See Instructions, 1 Tab PO daily x 4 days acetaminophen-hydrocodone (Lortab 5/500 oral tablet), 1 Tab, PO, Q4H, hold for sedation, 180 Tab, PRN: pain sodium chloride nasal ([place]), 1 [place], NASAL, Q4H, 1 EA, PRN: Nasal Congestion predniSONE (predniSONE 10 mg oral tablet), See Instructions, 60 mg daily x 2 days , 40 mg daily x 2 days, 30 mg daily x 2 days, 20 mg daily x 2 days, then stop Allergies: . Allergic Reactions (Selected) Severity not Documented Penicillin- No reactions were documented. Notes: Chief Complaint from Nursing Triage Note : Reason for Visit Additional Info, 09/06/10 22:35 Reason for Visit Additional Info Increasing SOB x 2 days. Productive, yellow cough . Health History ED ED Cardiac Medical History: Yes, open heart, ED Dyslipidemia: Yes, on meds ED Respiratory Medical History: Yes, copd ED Neurological Medical History: Yes, seziures ED Diabetes Medical History: No ED High Blood Pressure Medical History: Yes, on meds ED Currently : No ED LMP: No ED Previous Surgeries: Yes, left shoulder, left leg ED Other Medical Hx: No ED Smoking Hx: Yes, 1/2ppd Exposed to Second Hand Smoke: Yes ED Tetanus < 5 years: No History of Present Illness The patient is a 70 years old Male who presents with difficulty breathing. Duration lasting an unknown period of time. The course is increasing. The degree of severity is severe. There are exacerbating factors including exertion , lying down and smoke exposure. There are mitigating factors including oxygen and albuterol. The risk factor is upper respiratory infection exposure. Prior episodes: frequent. Associated Symptoms Constitutional symptoms: Fever, malaise, general weakness. ENT: Sore throat. Nasal congestion. sinus pain. Cardiovascular symptoms: Negative. Respiratory symptoms: Shortness of breath, wheezing. Cough symptoms: Moderate, dry. Oral intake: Decreased appetite. Gastrointestinal symptoms: Negative. Review of Systems Genitourinary symptoms: Negative Musculoskeletal symptoms: Negative Neurologic symptoms: Negative Lymphatic symptoms: Negative Skin symptoms: Negative. Other significant review of systems All other systems reviewed and otherwise negative. All systems reviewed as documented in chart. Past Medical/ Family/ Social History Medical history: Reviewed as documented in chart. Surgical history: Reviewed as documented in chart. Family history: Reviewed as documented in chart. Social history: Reviewed as documented in chart. Problem list: Include problem list, All Problems Angiography of coronary bypass, unilateral selective injection / SNOMED CT 98791815 / Confirmed Epileptic seizures / SNOMED CT 375706036 / Confirmed Fall risk / SNOMED CT 3531773944 / Possible Added by discern expert due to documentation. Pain / SNOMED CT 00016598 / Confirmed Visual impairment / SNOMED CT 0468018408 / Confirmedper nurse's notes. Physical Examination General appearance: Moderate distress, SMELLS OF ETOH. Ears, nose, mouth and throat: Within normal limits Heart: Within normal limits. Perfusion: Within normal limits. Neck: Within normal limits. Respiratory: TACHYPNEIC, BARREL-CHESTED WITH SCATTERED WHEEZES, PROLONGED EXPIRATORY PHASE Chest wall: Within normal limits Extremity: Within normal limits Peripheral edema: Negative Abdominal: Within normal limits Neurological: Alert and oriented times 3. No focal neuro deficits. Medical Decision Making Clinical work-up/Interpretation Results: Lab View, 09/06/10 23:27 Ammonia 24 mmol/L Alcohol Level 346.3 mg/dL HI Influenza A Negative Influenza B Negative 09/06/10 23:15 WBC 10.1 x10^3/uL Total Protein 6.7 gm/dL Albumin Level 3.1 gm/dL LOW RBC 4.78 x10^6/uL Calcium 8.3 mg/dL LOW Hgb 14.1 gm/dL Bili Total 0.3 mg/dL Hct 40.4 % Alk Phos 178 IU/L HI MCV 85 fL Sodium 137 mmol/L MCH 29.5 pg Potassium 3.3 mmol/L LOW MCHC 34.9 gm/dL Chloride 98 mmol/L RDW 16.7 % HI TCO2 32 mmol/L Platelet 296 x10^3/uL Glucose Lvl 127 mg/dL HI BUN 11 mg/dL Creatinine .7 mg/dL eGFR >60 mL/min eGFR () >60 mL/min ALT/GPT 57 IU/L AST/GOT 48 IU/L HI CPK 43 IU/L CK MB 1.1 ng/mL Troponin <0.04 ng/mL Segs Auto 70 % Lymph Auto 21 % Evans Auto 8 % Eos Auto 0 % Baso Auto 0 % Abs Neutro 7.010 x10^3/uL Abs Lymph 2.140 x10^3/uL Abs Evans .830 x10^3/uL Abs Eos .020 x10^3/uL Abs Baso .020 x10^3/uL RBC Morph Normal Results. 09/07/10 00:42 levofloxacin 750 mg mg 09/07/10 00:19 ceftriaxone 1 gm gm 09/07/10 00:18 methylprednisolone 125 mg mg 09/07/10 00:02 Lkyw-Jijkotidr-Nqigestvezk Not Done: Task Duplication (Not Done) 09/06/10 23:50 Peripheral Pulse Rate 96 bpm Upper Lobes Breath Sounds, Bilaterally Diminished Upper Lobes Breath Sounds, Bilaterally Diminished, Coarse crackles Lower Lobes Breath Sounds, Bilaterally Diminished Lower Lobes Breath Sounds, Bilaterally Diminished, Coarse crackles Left Upper Lobe Breath Sounds Diminished Left Upper Lobe Breath Sounds Diminished, Coarse crackles Right Upper Lobe Breath Sounds Diminished, Coarse crackles Right Upper Lobe Breath Sounds Diminished Right Middle Lobe Breath Sounds Diminished, Coarse crackles Right Middle Lobe Breath Sounds Diminished Left Lower Lobe Breath Sounds Diminished Left Lower Lobe Breath Sounds Diminished, Coarse crackles Right Lower Lobe Breath Sounds Diminished Right Lower Lobe Breath Sounds Diminished, Coarse crackles Cough Loose, Non-Productive Oxygen Therapy Room air Oxygen Saturation 93 % Othy-Vmxwuoxaa-Jzmjjjckjzp 3 mL mL Nebulizer Treatment Form 09/06/10 23:37 Anatomy/Site - Phlebotomy Lab Draw Right antecubital Successful - Phlebotomy Lab Draw Yes ED Treatments and Procedures Form Specimen Collect Form 09/06/10 23:27 Ammonia 24 mmol/L Alcohol Level 346.3 mg/dL HI Influenza A Negative Influenza B Negative 09/06/10 23:20 Peripheral IV Activity Start Peripheral IV Site Forearm ED Treatments and Procedures Form 09/06/10 23:19 Emotional/Physical Abuse Hx No Abuse Neglect Screen None noted at this time Advance Directive No Advance Directive Additional Information No Individual Oriented Patient Med History Reviewed With Patient Hx complete ED Admission Details 09/06/10 23:15 WBC 10.1 x10^3/uL RBC 4.78 x10^6/uL Hgb 14.1 gm/dL Hct 40.4 % MCV 85 fL MCH 29.5 pg MCHC 34.9 gm/dL RDW 16.7 % HI Platelet 296 x10^3/uL Segs 70 % Lymph 21 % Evans 8 % Eos 0 % Baso 0 % Abs Neutro 7.010 x10^3/uL Abs Lymph 2.140 x10^3/uL Abs Evans .830 x10^3/uL Abs Eos .020 x10^3/uL Abs Baso .020 x10^3/uL RBC Morph Normal Total Protein 6.7 gm/dL Albumin Level 3.1 gm/dL LOW Calcium 8.3 mg/dL LOW Bili Total 0.3 mg/dL Alk Phos 178 IU/L HI Sodium 137 mmol/L Potassium 3.3 mmol/L LOW Chloride 98 mmol/L TCO2 32 mmol/L Glucose Level 127 mg/dL HI BUN 11 mg/dL Creatinine .7 mg/dL eGFR >60 mL/min eGFR () >60 mL/min ALT/GPT 57 IU/L AST/GOT 48 IU/L HI CPK 43 IU/L CK MB 1.1 ng/mL Troponin <0.04 ng/mL Anatomy/Site - Phlebotomy Lab Draw Right antecubital Successful - Phlebotomy Lab Draw Yes Specimen Collect Form 09/06/10 22:59 DX Chest 1 View (Transcribed) 09/06/10 22:53 ED Treatments and Procedures Form 09/06/10 22:35 Height 172.7 cm Admission Weight 72.72 kg Scale Stated weight Admission BMI 24.4 Temperature Oral 36.1 DegC Peripheral Pulse Rate 107 bpm HI Respiratory Rate 22 br/min HI Systolic Blood Pressure 137 mmHg Diastolic Blood Pressure 74 mmHg Mean Arterial Pressure. 95.00 mmHg Location-Pain 1 Shoulder Quality-Pain 1 Aching Oxygen Therapy Room air Oxygen Saturation 95 % Skin Color [place] Skin Description Warm, Dry Level of Consciousness Alert Eye Opening Response Bend Spontaneously Best Motor Response Jes Obeys commands Best Verbal Response Jes Oriented Jes Coma Score 15 Pt Response Affected By Med No Orientation Oriented x 3 Presents to ED as MH No Reason for Visit Additional Info Increasing SOB x 2 days. Productive, yellow cough Onset of Symptoms 2 days ago. Mode of Transfer Wheelchair EMS Stations Private vehicle Tracking Acuity Complete Tracking Acuity Medical 2 Affect/Behavior-ED Appropriate for age, Cooperative ED Triage Form (Modified) Chest X-Ray: INCREASED MKGS THROUGHOUT BUT POSSIBLY ACUTELY WORSE RIGHT HEMITHORAX. Documentation reviewed: emergency department nurses' notes Impression and Plan Diagnosis COPD with acute exacerbation 491.21 (ICD9 491.21, Discharge, Emergency medicine , Medical) Pneumonia 486 (ICD9 486, Discharge, Emergency medicine, Medical) HYPOXEMIA, ETOH INTOXICATION Discharge plan Condition: Guarded. Admit: Time 09/07/10 00:54:00, To Inpatient Telemetry Unit. Patient care transitioned to: Time: 09/07/10 00:54:00, Janneth Rosario MD. Counseled: Patient, Regarding diagnosis, Regarding diagnostic results, Regarding treatment plan. Emergency Medical Treatment and Active Labor Act/Prudent layperson: Emergency Medical Condition Exists at Discharge: Present. 09/07/2010 [facility] Alcohol Level 346.3 mg/ dL - <=3.0 09/07/2010 HI Results are for medical use only. [facility] NH3 Ammonia 24 mmol/L 11 - 35 09/07/2010 N [facility] QuikFlu Influenza B Negative Negative 09/07/2010 N Reliability of rapid flu tests: False-positive (and true negative) results are more likely to occur when flu is uncommon in the community, which is generally at the beginning and end of an outbreak. Recommend confirmation testing, initially, to support rapid test results. During flu season, false-negative (and true positive) results are more likely. [facility] C Blood C Blood PATIENT: SANTOS THOMAS PHYSICIAN: Protocol, Orders PROC: Blood Culture SOURCE: Blood SITE: Right Antecubital FT SOURCE: FINAL REPORT Final Report Verified:09/12/10 10:17 No growth at 5 days. 09/06/2010 [facility] C Blood C Blood PATIENT: SANTOS THOMAS PHYSICIAN: Protocol, Orders PROC: Blood Culture SOURCE: Blood SITE: Right Antecubital FT SOURCE: FINAL REPORT Final Report Verified:09/12/10 10:17 No growth at 5 days. 09/06/2010 [facility] DX Chest 1 View DX Chest 1 View SANTOS THOMAS INDICATION: Increasing shortness of breath. Productive cough. Positive smoking history and hypertension. There is flattening of the diaphragms and hyperaeration of the lungs from pulmonary emphysema and chronic interstitial lung disease. There are ill- defined hazy interstitial alveolar opacities in the right lung suspicious for superimposed pneumonia. Left lung is relatively clear. The heart is normal in size. There are sternal sutures and clips from prior surgery. No overt vascular congestion. Skeletal structures remain unchanged. IMPRESSION: The heart is normal in size. Changes from previous coronary artery bypass graft surgery. Chronic interstitial lung disease and emphysema. Suspect superimposed pneumonia in the right lung. Final Report Dictated By: Ian Fu MD Signed By: Ian Fu MD Signed Dt/tm: 09/07/2010 01:26 Transcribed By: JFV Transcribed Dt/tm: 09/07/2010 00:02</br> Clinical History Current History Increasing SOB x 2 days. Productive, yellow cough Previous History/Surgery seizures,open heart, COPD, smoker, HTN 09/06/2010 Final Report Dictated By: Ian Fu MD Signed By: Ian Fu MD Signed Dt/tm: 09/07/2010 01:26 Transcribed By: AMADA Transcribed Dt/tm: 09/07/2010 00:02 [facility] History and Physical History and Physical DATE OF ADMISSION: 09/06/2010 DICTATING PHYSICIAN: Janneth Sutherland MD CHIEF COMPLAINT: Shortness of breath. HISTORY OF PRESENT ILLNESS: The patient is a 70-year-old male who has history of COPD and tobacco use, who was just recently discharged for COPD exacerbation. At the time that I discharged him, he said that he was doing well and almost back to baseline. Apparently when he went home, he continued to use his nebulizer treatment and then started smoking again. He denies any exposure to cold however. Today, his shortness of breath is getting worse and even with his nebulizer treatment. He then came to the emergency department. He called his friend and also called the cab to bring him him. He had an chest x-ray done in emergency department, which showed chronic interstitial lung disease and emphysema with probable superimposed pneumonia in the right lung. He was then placed on pneumonia protocol and given Rocephin and Zithromax, and has been admitted. He has also been given Solu-Medrol in the ER. He has also been given nebulizer treatment. He did not have any leukocytosis. REVIEW OF SYSTEMS: The patient denies any fever or chills. He denies any headache or blurry vision. He did have some mild dizziness. He does have the shortness of breath. Denies any chest pain. No nausea, no vomiting, abdominal pain. Does have generalized weakness. No numbness or tingling sensation. When I asked him about alcohol, he initially said he did not drink alcohol and was not sure why his alcohol level is elevated. After talking to him about what his diet was today, he did state that he just drank some soda, Pepsi and then finally admitted that he actually had whiskey with it. I am unsure how truthful this patient is with regard to his review of systems or with his history. Other review of systems unremarkable. PAST MEDICAL HISTORY: 1. History of coronary artery disease and had an [place] in the past. 2. Alcoholism. 3. Chronic tobaccoism and continued tobacco use. 4. History of seizure disorder. 5. History of CVA with right leg numbness and was on Coumadin for it but has stopped taking it. 6. He also has history of hyperlipidemia. 7. Hypertension. 8. No history of diabetes. PAST SURGICAL HISTORY: Includes left shoulder surgery, CABG x2 in 1990 and 1997. Also had ankle surgery. FAMILY HISTORY: A history of hypertension, diabetes, CAD, mostly from the mother. SOCIAL HISTORY: The patient is single. He used to stay with his friend and apparently his friend went back to the [facility] so he lives by himself. He has smoked 3 to 4 cigarettes per day since he was discharged here although at that time, he did promise that he was going to quit smoking. He used to smoke 1 pack per day. He said he quit alcohol about 18 years ago but even with when I was getting his history, he still denied drinking alcohol until I told him that his alcohol level was elevated. Denies any illicit drug use. ALLERGIES : PENICILLIN. HE DID STATE THAT HE HAS BEEN TAKING HIS MEDICATIONS SINCE HE WAS DISCHARGED ON INCLUDING HIS ANTIBIOTICS. MEDICATIONS: List includes; 1. Levaquin 500 mg 1 tab p.o. daily which he apparently finished the last dose today. 2. Lisinopril 10 mg daily. 3. Acetaminophen 650 mg p.o. q.4 hours p.r.n. for temperature more than 38.4. 4. Aspirin 81 mg daily. 5. Phenobarbital 200 mg b.i.d. 6. Restoril 15 mg p.o. at bedtime as needed for sleep. 7. Prednisone taper. 8. Atrovent HFA 2 puffs inhaled q.i.d. and 4 mg inhaled q.i.d. 9. Albuterol ipratropium 3 mL neb q.4 hours. 10. Lortab 5/500 mg 1 tab p.o. q.4 hours p.r.n. for pain. 11. Carbamazepine 400 mg p.o. b.i.d. 12. [place] spray nasal every 4 hours as needed for nasal congestion. 13. Atenolol 100 mg daily. 14. Budesonide q.12 hours. PHYSICAL EXAMINATION: General: On admission, temperature is 36.1, heart rate of 96, respiratory 26, blood pressure is 125/64, 95% on 2 L nasal cannula. General: The patient is alert, oriented, intoxicated. He is in mild respiratory distress. HEENT: Normocephalic, atraumatic. Pupils equal, reactive to light and accommodation. EOM are intact. Clear oropharynx. Dry mucous membranes. Neck: Supple neck. No lymphadenopathy. Heart: Normal rate , regular rhythm. No murmurs noted. Lungs: He has coarse breath sounds on exam, very decreased breath sounds and decreased air entry and wheezing. Gastrointestinal: Abdomen is soft, nontender, nondistended. Good bowel sounds. Genitourinary: Deferred. Musculoskeletal: Moves all extremities. Neurologic: The patient is alert and oriented x3. Psychiatric: The patient is calm and cooperative. LABS: The patient did not have any leukocytosis. Hemoglobin is 14.1, white count is 10.1. Potassium is 3.3, alkaline phos 178, calcium 8.3, albumin 3.1, glucose 127, AST of 48. Alcohol level 346.3. Influenza A and B negative. Imaging studies done showed chronic interstitial lung disease and emphysema with possible superimposed pneumonia in the right lung. IMPRESSION: The patient is a 70-year-old male admitted for; 1. Pneumonia. 2. Chronic obstructive pulmonary disease exacerbation, low saturation likely worsened with him smoking again. 3. Tobaccoism. 4. Alcoholism. 5. Seizure disorder, currently stable. 6. History of cerebrovascular accident with mild neural deficits, mostly in the right arm and right leg. He has stopped taking Coumadin. 7. Hyperlipidemia. 8. Hypertension. 9. Noncompliance. 10. Hypokalemia. PLAN: The patient will be admitted and we will again put him on pneumonia protocol with Rocephin and Zithromax. He does not have any white count, I would not broaden his antibiotics currently. He has had no fever either. I suspect that his exacerbation in his pneumonia is likely related to him being noncompliant and went back to smoking. We will go ahead and give him nebulizer treatment. We will put him on O2 protocol and put him on inhaled and IV steroids. We will also for his alcoholism give him banana bag and we will also replace his potassium. We will also repeat his alcohol level and again gave him banana bag. I have discussed smoking cessation with the patient and he knows that he needs to stop smoking and he will try. We will also hydrate him. I would be wary in believing this patient with his history copmpletely as dealing with him in the past, he has said different things and admits lying about it later. DICTATED BY: Janneth Vigil cc:Lalo Lara MD TR: [id number] DR: 09/07/2010 02:48:53 DE: 09/07/2010 09:06:37 JOB#: [id number] /[id number] [Electronically Signed on 09.09.2010 06:19 am] Janneth Rosario MD </br> 09/06/2010 [Electronically Signed on 09.09.2010 06:19 am] Janneth Rosario MD [facility] Discharge Summary Discharge Summary DATE OF ADMISSION: 08/29/2010 DATE OF DISCHARGE: 09/01/2010 DICTATING PHYSICIAN: Janneth Sutherland MD DISCHARGE DIAGNOSES: 1. Chronic obstructive pulmonary disease exacerbation. 2. History of coronary artery disease, status post coronary artery bypass. 3. Dehydration. 4. Transient epistaxis and hemoptysis, seconda ry to nasal congestion and dryness. 5. History of tobaccoism. 6. History of seizures. 7. History of cerebrovascular accident, on anticoagulation. 8. Hyperlipidemia. 9. Hypertension. 10. Left shoulder pain post fall. HOSPITAL COURSE: The patient is a 70-year-old male who was admitted here for shortness of breath. Please see history and physical done on 08/29/2010. The patient was placed on COPD protocol and started on levofloxacin and nebulizer treatment. Smoking cessation was also advised. He was placed on inhaled steroids. He had cardiac markers drawn which were negative. He was noted to be sinus tachycardia on his monitor. He has been doing well, otherwise. He did not need any oxygen on admission. He was continued on steroids and pulmonary toilet and has been doing well and feels that he is ready to go home today. He is short of breath and wheezing, but he states he is almost back to baseline and he wants to go home. The patient is stable and will then be discharged to home today. dust box worker has also worked with the patient regarding his medications and the patient's followup. DISCHARGE PHYSICAL EXAMINATION: Vital Signs: Temperature 36.4, heart rate 59, respiratory rate 24, blood pressure 144/74, and oxygen saturation 94% on room air. General: The patient is alert. He is oriented x3, not in acute respiratory distress. HEENT: Normocephalic and atraumatic. Pupils equal and reactive to light and accommodation. EOMs intact. Clear oropharynx. Neck: Supple. No lymphadenopathy. Cardiovascular: Normal rate and regular rhythm. No murmurs noted. Respiratory: He is wheezing on exam. Decreased breath sounds. No crackles noted. No tachypnea. No labored breathing. Gastrointestinal: Flat, soft, nontender, and nondistended. Good bowel sounds. Genitourinary: Deferred. Musculoskeletal: Good strength. Neurologic: Grossly normal. Psychiatric: The patient is calm and cooperative. DISPOSITION: The patient will then be discharged to home today. ACTIVITY: As tolerated. No strenuous activity. DIET: Step One, 300 mg, low-fat low-cholesterol diet. To continue incentive spirometer at home. Also to budesonide nebulizer treatment b.i.d. and q.4h. of nebulizer treatment at home. FOLLOWUP: Follow up new PCP. dust box worker to assist in getting a new PCP for this patient. DISCHARGE MEDICATIONS: 1. Acetaminophen 650 mg p.o. q.4h. p.r.n. 2. Albuterol HFA 4 mg inhaled q.i.d. 3. Aspirin 81 mg p.o. daily. 4. Atenolol 100 mg p.o. daily. 5. Atrovent 2 puffs inhaled q.i.d. 6. Budesonide 0.5 mg nebulizer every 12 hours , dispensed 1 box, refills per PCP. 7. Carbamazepine 400 mg p.o. b.i.d., dispensed 60, refills per PCP. 8. Levofloxacin 500 mg p.o. daily x4 days, dispensed 4, refills per PCP. 9. Lisinopril 10 mg p.o. daily. 10. Lortab 5/500 mg 1 tablet p.o. q.4h. p.r.n. for pain, dispensed 30, refills per PCP. 11. [place] nasal mist, 1 spray nasally every 4 hours p.r.n. 12. Phenobarbital 200 mg b.i.d. 13. Albuterol and ipratropium 3 mL nebulizer every 4 hours. 14. Restoril 15 mg p.o. at bedtime as needed 15. Prednisone 60 mg p.o. daily x2 days, 40 mg p.o. x2 days, 30 mg x2 days, 20 mg x2 days then discontinue, dispensed quantity sufficient. Refills per PCP. Note, the patient however is telling me that prednisone does not as it makes him crazy. I did tell him to try it again. The patient is agreeable. I spent 35 minutes taking care of this patient today. DICTATED BY: Janneth Vigil cc: TR: [id number] DR: 09/01/2010 17:44:14 DE: 09/01/2010 19:49:03 JOB#: [id number] /[id number] [Electronically Signed on 09.02.2010 09:37 am] Janneth Rosario MD </br> 09/01/2010 [Electronically Signed on 09.02.2010 09:37 am] Janneth Rosario MD [facility] DX Chest 2 View DX Chest 2 View [facility] SCHMEISER CHEST, 2-VIEW INDICATION: Pneumonia, shortness of breath, cough, and fever. FINDINGS: AP and lateral views of the of the chest are compared to that of August 29, 2010 and show chronic interstitial changes with hyperinflation, consistent with underlying pulmonary emphysema, similar to prior. Prior median sternotomy and CABG. Atherosclerotic aortic arch. The heart size appears normal. IMPRESSION: Chronic interstitial changes and pulmonary emphysema, similar to prior. No new consolidation or effusions. Prior median sternotomy and coronary artery bypass graft. Final Report Dictated By: Kaiden Larson MD Signed By: Kaiden Larson MD Signed Dt/tm: 09/01/2010 08:26 Transcribed By: ALFONSO Transcribed Dt/tm: 09/01/2010 08:24</br> Clinical History Current History pneumonia, sob, cough, fever Previous History/Surgery cad, cabg, copd, htn, smoker 09/01/2010 Final Report Dictated By: Kaiden Larson MD Signed By: Kaiden Larson MD Signed Dt/tm: 09/01/2010 08:26 Transcribed By: ALFONSO Transcribed Dt/tm: 09/01/2010 08:24 [facility] P2 eGFR () > 60 mL/min >=60 09/01/2010 N Estimated GFR for an calculated using MDRD study equation. Result Verified by Discern Expert. [facility] P2 eGFR >60 mL/min >=60 09/01/2010 N Estimated eGFR Non calculated using MDRD study equation Result Verified by Discern Expert. The MDRD GFR formula is valid only for adults between 18 and 85 years of age. [facility] MG Magnesium Level 2.0 mg/dL 1.8 - 2.4 09/01/2010 N [facility] P2 Calcium 8.5 mg/dL 8.5 - 10.1 09/01/2010 N [facility] -Auto Diff Abs Neutro 5.410 x10^3/uL 2.000 - 8.100 2010 N [facility] -RBC Morphology RBC Morph Normal Normal 09/01/2010 N [facility] CBC with Diff WBC 6.7 x10^3/ uL 4.0 - 10.8 09/01/2010 N [facility] Progress Note Progress Note SANTOS THOMAS [id number]: [id number]: [id number] Bing JAVED HEKnss87/14/11 10:50Insurance [facility] [id number]: 2MEDICARE-MCARE Observation Contacts NONE, PER PT AdmittingAttendingReferringConsulting Elder Yanez, Elder Adam, SUBJECTIVE: no fever. able to sleep last night. this am, woke up feeling congested and can hardly breath. OBJECTIVE: Vitals (24 hour summary) TemperatureHeart RateRespiratoryBP SysBP DiaO2 SatHeight Weight 36.4 - 37.065 - 8316 - 16678 - 64835 - 6892 - 84280.7 cm69.600 kg Physical Exam: Alert, oriented x 3, not in acute respiratory distress +nasal congestion increase wheezing Normal rate, regular rhythm, no murmur soft, nontender, good bowel sounds Good pulses, no edema Intake & Output Summary (08/30/10 07:00 to 08/31/10 06:59) IntakesUnitsTotal Oral YhtkeapS093 Sodium Chloride 0.9%mL906 zqdrntaohgysaF258 methylprednisolonemL4 Oral AzpgknkT171 OutputsUnitsTotal Urine QoktggcS9769 Summary Mlnwsy=0962 Ksqebh=6586 Balance=-200 MedicationDoseFrequency vhqulugyjtqlw900 mg=2 TabPRN, Q4H acetaminophen-hydrocodone1 TabPRN, Q4H ytoexzf662 mg=1 Tabdaily uvqouckq324 mg=2 Tabdaily dylfncwrumzdg724 mg=2 TabBID nqoldegdvrnn646 rw=132 mLQ24H pvwtrzldus28 mg=1 Tabdaily pbhufvrjxvvyvfpofq80 mg=1 mLQ8H, 3 Dose(s) xqrhhexcgipxnponao75 mg=1 mLQ12H, 2 Dose(s) ftxpvikdbgvxxamxbw97 mg=1 mLQ24H, 1 Dose(s) morphine2 mg=1 mLPRN, Q2H morphine4 mg=1 mLPRN, Q4H ondansetron4 mg=2 mLPRN, Q6H ccoqxjietkxm27 mg=1 Tabdaily uhczcujmhkimh866 mg=2 TabBID Pyhy-Ezbavnqfa-4 mLRQ4H Ipratropium Lnjm-Rlidfabdd-9 mLPRN, RQ2H Ipratropium Resp-Budesonide0.5 mg=2 yYHL57Q Sodium Chloride 0.9%3 mLQ8H(0400/1200/2000) Sodium Chloride 0.9%3 mLPRN, Q5MIN sdgbpkxas67 mg=1 CapPRN, AT BEDTIME IV Drip MedicationDoseRate Sodium Chloride 0.9%1,000 mL75 mL/hr 1,000 mL Sodium Chloride 0.9%1,000 mL80 mL/hr with 20meq KCl 1,000 mL General Lab No General Lab results found Microbiology Procedure (Pending)Culture Start Dt/TmStatus Culture Blood08/29/10 09:23Preliminary Culture Blood08/29/10 09:24Preliminary Procedure (Completed)Completed Dt/Tm Culture Wnsvzr86/16/11 07:44 Culture Eridzc67/16/11 07:48 Radiology Procedures No Radiology Procedure updates found ASSESSMENT: Mr. Thomas is a 70-year-old male admitted for: Chronic obstructive pulmonary disease exacerbation. History of coronary artery disease status post coronary artery bypass graft. Dehydration. Transient site epistaxis and hemoptysis, likely secondary to nasal congestion and dryness. History of tobaccoism. History of seizures. History of cerebrovascular accident on anticoagulation. Hyperlipidemia. Hypertension. Left shoulder pain post fall. PLAN: nasal saline spray increase IV steroids cont abx increase neb tx IS cxr [Electronically Signed on 08.31.2010 01:27 pm] Janneth Rosario MD </br> 08/31/2010 [Electronically Signed on 08.31.2010 01:27 pm] Janneth Rosario MD [facility] Progress Note Progress Note SANTOS THOMAS W71 [id number]: [id number]: [id number] [address] [place], [place] [address]8/29/10 10:50Insurance [facility] [id number]: [facility] Observation Contacts NONE, PER PT AdmittingAttendingReferringConsulting Elder Yanez, Elder Adam, SUBJECTIVE: no fever. still sob. still doesn't feel good but better. able to walk around today with no sob. still feel weak OBJECTIVE: Vitals (24 hour summary) TemperatureHeart RateRespiratoryBP SysBP DiaO2 SatHeight Weight 36.5 - 37.167 - 45976 - 39239 - 02386 - 7392 - 00705.7 cm68.000 kg Physical Exam: Alert, oriented x 3, not in acute respiratory distress Moist mucous membrane wheezing all over Normal rate, regular rhythm, no murmur soft, nontender, good bowel sounds Good pulses, no edema Intake & Output Summary (08/29/10 07:00 to 08/30/10 06:59) IntakesUnitsTotal Oral EvsmwnfF6635 Sodium Chloride 0.9%mL526 yysppgqlpN472 levofloxacinmL0 morphinemL1 methylprednisolonemL4 OutputsUnitsTotal Urine NgviwwwS5403 Summary Pqnwrr=2951 Xwekdx=2377 Lqugcpv=0773 MedicationDoseFrequency umkmhselpmzze304 mg=2 TabPRN, Q4H acetaminophen-hydrocodone1 TabPRN, Q4H mg=1 Tabdaily qcasdvsn505 mg=2 Tabdaily txfwnnmvtqaed402 mg=2 TabBID btbvvbiawqsa305 ph=766 mLQ24H hlglpanckf30 mg=1 Tabdaily hjaoywskukycfemvzj34 mg=2 mLQ8H, 3 Dose(s) pmeabodmadtboqqgfr51 mg=1 mLQ8H, 3 Dose(s) lhrfnbmrecmvyacytd73 mg=1 mLQ12H, 2 Dose(s) odakolvhwhrfavgxqi41 mg=1 mLQ24H, 1 Dose(s) morphine2 mg=1 mLPRN, Q2H morphine4 mg=1 mLPRN, Q4H ondansetron4 mg=2 mLPRN, Q6H rxyhdcnssspq01 mg=1 Tabdaily jivsyrqabchuj446 mg=2 TabBID pneumococcal 23-fwqiid87 mcg=0.5 mLX 1 DOSE vaccine Uzkc-Slykoahpi-5 mLRQ4H Ipratropium Pixj-Pnqhqhfxk-8 mLPRN, RQ2H Ipratropium Resp-Budesonide0.5 mg=2 mOMK54L Sodium Chloride 0.9%3 mLQ8H(0400/1200/1999) Sodium Chloride 0.9%3 mLPRN, Q5MIN aalftwiur00 mg=1 CapPRN, AT BEDTIME IV Drip MedicationDoseRate Sodium Chloride 0.9%1,000 mL75 mL/hr 1,000 mL Sodium Chloride 0.9%1,000 mL80 mL/hr with 20meq KCl 1,000 mL General LabResultsCollected Dt/Tm Complete Blood Count WBC4.0 x10^3/uL08/30/10 04:15 RBCL 4.11 x10^6/uL08/30/10 04:15 HgbL 11.9 gm/dL08/30/10 04:15 HctL 36.3 %08/30/10 04:15 MCV88 fL08/30/10 04:15 MCH29.0 pg08/30/10 04:15 MCHC32.8 gm/dL08/30/10 04:15 RDWH 16.8 %08/30/10 04:15 Qcfktlcf066 x10^3/uL08/30/10 04:15 Differential Segs72 %08/30/10 04:15 LymphL 19 %08/30/10 04:15 Mono8 %08/30/10 04:15 Baso0 %08/30/10 04:15 Abs Neutro2.880 x10^3/uL08/30/10 04:15 Abs LymphL .750 x10^3/uL08/30/10 04:15 Abs Evans.320 x10^3/uL08/30/10 04:15 Abs Baso.010 x10^3/uL08/30/10 04:15 RBC VbkmiWibnnh68/15/11 04:15 UA Dipstick UA XfezoQkdpqh09/14/11 16:05 UA VpaxseGhnlv74/14/11 16:05 UA pHN 7.501 16:05 UA Spec GravN 1.2331208/29/10 16:05 UA DohkvjyDgfnrsow05/14/11 16:05 UA KmmtsnwZjgjlzec03/14/11 16:05 UA NbkxvcaNfmvdule27/14/11 16:05 UA GcmrDdkrfqrc49/14/11 16:05 UA LagxiDztwabro87/14/11 16:05 UA UamtxiixaasgOhxrou36/14/11 16:05 UA HxxufkbGfcjeqav96/14/11 16:05 UA Leuk ZtqKzzwjize84/14/11 16:05 General Chemistry Calcium9.0 mg/dL08/30/10 04:15 SodiumL 130 mmol/L08/30/10 04:15 Potassium4.2 mmol/L08/30/10 04:15 Rivifrky25 mmol/L08/30/10 04:15 QTD218 mmol/L08/30/10 04:15 Glucose LevelH 144 mg/dL08/30/10 04:15 BUN12 mg/dL08/30/10 04:15 Creatinine.9 mg/dL08/30/10 04:15 eGFR>60 mL/min08/30/10 04:15 eGFR ()>60 mL/min08/30/10 04:15 BKO091 IU/L08/29/10 17:10 CK MB2.7 ng/mL08/29/10 17:10 Troponin<0.04 ng/mL08/29/10 17:10 Alcohol Level<3.0 mg/dL08/29/10 17:10 Drug Screen Amphetamine DelrjDiucbwif90/14/11 16:05 Methamphet YyntmLwgenwps55/14/11 16:05 Barbiturate LevelA Ovwqqwcb77/14/11 16:05 Benzodiazepn DsrsqJdfsnpgk73/14/11 16:05 Cocaine LqawxFgiqrhtk59/14/11 16:05 Opiates LevelA Yxuqveux75/14/11 16:05 Cannabinoids CtpcgVrbazrls28/14/11 16:05 Tricyclic Ant BymtcOwgzexlz28/14/11 16:05 PCP JrkhlAxzsnsxe37/14/11 16:05 Methadone TtgyxZncvczwx51/14/11 16:05 Aceta/Paracetamol LthzlRjocvfua21/14/11 16:05 Microbiology Procedure (Pending)Culture Start Dt/TmStatus Culture Patifk36/14/11 09:08Preliminary Culture Blood08/29/10 09:23Preliminary Culture Blood08/29/10 09:24Preliminary Culture Rurrgi21/14/11 16:37Preliminary Radiology ProceduresLast Update Dt/TmStatus DX Chest 2 View08/29/10 08:19Auth (Verified) Impression: Severe chronic lung disease. Nothing particularly suggesting pneumonia is seen at this time, but follow-up study suggested in view of the clinical history CT Chest W/Zlbtylax64/14/11 09:53Auth (Verified) Impression: 1. There is no embolus, dissection or aneurysm. 2. Chronic pleural and parenchymal disease, most marked involving the right hemithorax ASSESSMENT: Mr. Thomas is a 70-year-old male admitted for: 1. Chronic obstructive pulmonary disease exacerbation. 2. History of coronary artery disease status post coronary artery bypass graft. 3. Dehydration. 4. Transient site epistaxis and hemoptysis, likely secondary to nasal congestion and dryness. 5. History of tobaccoism. 6. History of seizures. 7. History of cerebrovascular accident on anticoagulation. 8. Hyperlipidemia. 9. Hypertension. 10. Left shoulder pain post fall. PLAN: tachy on tele - will keep it another 24 hours cont on ivf pulm toilet abx, neb, steroids [Electronically Signed on 08.30.2010 01:52 pm] Janneth Rosario MD </br> 08/30/2010 [Electronically Signed on 08.30.2010 01:52 pm] Janneth Rosario MD [facility] P2 eGFR >60 mL/min >=60 08/30/2010 N Estimated eGFR Non calculated using MDRD study equation Result Verified by Discern Expert. The MDRD GFR formula is valid only for adults between 18 and 85 years of age. [facility] P2 Sodium 130 mmol/L 135 - 145 08/30/2010 LOW [facility] -Auto Diff Baso 0 % 0 - 2 08/30/2010 N [facility] -RBC Morphology RBC Morph Normal Normal 08/30/2010 N [facility] CBC with Diff Platelet 169 x10^3/uL 150 - 400 2010 N [facility] CKMB CK MB 2.7 ng/mL 0.0 - 3.6 08/29/2010 N [facility] CPK CPK 113 IU/L 21 - 232 08/29/2010 N [facility] TROPON Troponin <0.04 ng/mL - <=0.09 08/29/2010 N Result Range Troponin Interpretation <0.1 ng/ml No evidence of myocardial ischemia 0.1 - 0.6 ng/ml Possible myocardial ischemia (ACS) >0.6 ng/ml Acute myocardial infarction (AMI) [facility] ALC Alcohol Level <3.0 mg/dL - <=3.0 08/29/2010 N Results are for medical use only. [facility] DRUGS Methadone Level Negative 08/29/2010 N [facility] -UA Dipstick UA Blood Negative Negative 2010 N [facility] C Sp C Sp PATIENT: SANTOS THOMAS PHYSICIAN: Janneth Rosario MD PROC: Sputum Culture SOURCE: Sputum SITE: Lung FT SOURCE: STAINS / PREPARATIONS Gram Stain Report Verified:08/30/10 07:49 Minimal oral contamination Few White Blood Cells Rare epithelial cells Moderate Mixed upper respiratory israel FINAL REPORT Final Report Verified:08/31/10 07:48 Moderate Mixed upper respiratory israel 08/29/2010 [facility] History and Physical History and Physical DATE OF ADMISSION: 08/29/2010 DICTATING PHYSICIAN: Janneth Sutherland MD CHIEF COMPLAINT: Shortness of breath. HISTORY OF PRESENT ILLNESS: Mr. Thomas is a 70-year-old male who has history of severe COPD and tobaccoism who presented to the emergency department for shortness of breath. The patient states that he was doing well for the last few days and started getting short of breath but yesterday had increased shortness of breath. He said his nebulizers did not really help and this morning has started coughing blood including also bleeding from the nose; however, it stopped. The patient stated it was just 1 time. The patient was seen in emergency department and a chest x-ray was done, which showed severe chronic lung disease. No pneumonia at this time. A CT of the chest to rule out PE was also done, which was negative. A had chronic pleural and parenchymal disease. The patient was then given a dose of steroids and Levaquin and nebulizer treatment and was then admitted for further management. Labs were drawn. The patient did not have any leukocytosis. Hemoglobin was 12.2. His chemistry was unremarkable except for slightly low albumin level and elevated alkaline phos and sodium was 130. REVIEW OF SYSTEMS: The patient had fever yesterday and felt cold and sweaty. He had some increased shortness of breath yesterday. He denies any dizziness, headache. He did have the shortness of breath and coughing and also bleeding from his nose and his sputum which has resolved. He also has history of seizures and has had seizures maybe about 3-4 times per year and his last seizure was last week. He also has stopped taking his medications, he ran out of it. The patient does have some chest pain occasionally, especially when he moves and he thinks that this is secondary to his previous history of CABG. He does have some numbness in the right leg. He does have complaint also of right shoulder pain and was told that he has rotator cuff injury. Was seen in Urgent Care and was referred to orthopedics. Other review of systems unremarkable. PAST MEDICAL HISTORY: 1. CAD. 2. History of [place] in the past. 3. Alcoholism. 4. Seizure disorder and has grand mal seizures about 3-4 times per year. He used to be followed by a neurologist in [place] and would rather follow up with Dr. Lara rather than seeing another neurologist while he is here. 5. He also has history of CVA with right arm and right leg numbness and states that he has been on Coumadin for that. 6. He also has had hyperlipidemia. 7. Hypertension. 8. No history of diabetes. PAST SURGICAL HISTORY: Includes left shoulder surgery, CABG x2 in 1991 and 1997. He also had ankle surgery. FAMILY HISTORY: Mother with hypertension, diabetes, and CAD. SOCIAL HISTORY: Patient is single. He stays with a friend. He smokes 1 pack per day but states to me that he finally has decided this morning that he will stop smoking. He quit alcohol about 18 years ago. Denies any illicit drug use. ALLERGIES: PENICILLIN. MEDICATIONS: 1. Lisinopril 10 mg daily. 2. Aspirin 81 mg daily. 3. Phenobarbital 200 mg b.i.d. 4. Restoril 15 mg p.o. at bedtime as needed for sleep. 5. Atrovent HFA 2 puffs inhaled q.i.d. 6. Albuterol HFA 4 mg inhaled q.i.d. 7. Risperdal neb treatment every 4 hours. 8. Lortab 5/500 mg 1 tab p.o. q.4 hours. 9. Carbamazepine 500 mg b.i.d. 10. Coumadin 5 mg p.o. q.24 hours. 11. Atenolol 100 mg daily. PHYSICAL EXAMINATION: Temperature is 36.9, heart rate of 92, respiratory rate 16, blood pressure is 148/77, 94% on room air. General: The patient is alert, oriented x3. He does have conversational dyspnea. HEENT: Normocephalic, atraumatic. Pupils equal, reactive to light and accommodation. EOM intact. Clear oropharynx. Dry mucous membranes. Neck: Supple neck. No lymphadenopathy. Heart: Normal rate, regular rhythm. No murmurs noted. Respiratory: He has decreased breath sounds on exam. He is wheezing and I do not hear any crackles. Gastrointestinal: Abdomen flat, soft, nontender, nondistended. Good bowel sounds. Genitourinary: Deferred. Musculoskeletal: Good strength. Neurologic: Grossly normal except for mild weakness on the right lower extremity and also has some pain and decreased range of movement on the left upper extremity. The patient is calm and cooperative. LABORATORY DATA: As mentioned. X-ray and CAT scan as mentioned. EKG has been ordered. IMPRESSION: Mr. Thomas is a 70-year-old male admitted for: 1. Chronic obstructive pulmonary disease exacerbation. 2. History of coronary artery disease status post coronary artery bypass graft. 3. Dehydration. 4. Transient site epistaxis and hemoptysis, likely secondary to nasal congestion and dryness. 5. History of tobaccoism. 6. History of seizures. 7. History of cerebrovascular accident on anticoagulation. 8. Hyperlipidemia. 9. Hypertension. 10. Left shoulder pain post fall. PLAN: The patient is currently admitted and we will go ahead and put him on COPD protocol with the steroids and levofloxacin and neb treatment. We will do an EKG as he does complain of occasional chest pain. We will also add budesonide to his regimen and will ask PT and OT to see him in the morning. We will also follow cardiac markers secondary to patient's complaint of occasional chest pain. I do believe that his symptoms are most likely secondary to his COPD. I have discussed smoking cessation and he states that he is going to quit this time. We will have physical therapy work with the left shoulder. The patient already has an appointment with orthopedics outpatient and we will await that. I do not think he is stable enough to go for surgery at this time. I also discussed with the patient regarding his seizures and stated he just wanted to follow with Dr. Lara for that. DICTATED BY: Janneth Vigil cc:Lalo Lara MD TR: [id number] DR: 08/29/2010 15:26:02 DE: 08/29/2010 16:47:42 JOB#: [id number] [Electronically Signed on 09.02.2010 09:08 am] Janneth Rosario MD </br> 08/29/2010 [Electronically Signed on 09.02.2010 09:08 am] Janneth Rosario MD Biopharmacopae Protime Protime 10.1 second(s ) 9.5 - 12.0 08/29/2010 N Biopharmacopae BNP BNP 82 pg/mL 0 - 100 08/29/2010 N BNP testing performed on backup instrument. Results are approximately 25% lower than the primary instrument. [facility] CT Chest W/Contrast CT Chest W/Contrast [facility] CT CHEST WITH CONTRAST INDICATION: Hemoptysis, shortness of air, pneumonia, smoker. CONTRAST: 100 mL. Compared to 05/23/10. A PE protocol was performed. There is no evidence of an embolus. There are atherosclerotic changes of the great vessels and thoracic aorta. There is no dissection or aneurysm. There is a healed median sternotomy. There is atherosclerotic coronary artery vascular calcification. The heart is not enlarged. There is no pericardial effusion. There is calcified pleural thickening posteriorly involving the right hemithorax. It is also present involving the anterior right hemithorax. There is no lobar consolidation or effusion. There is chronic change involving the right upper lobe. There is chronic change involving the right middle lobe laterally. The upper lobes demonstrate emphysematous change, particularly involving the right upper lobe. Sagittal reformations of the spine demonstrate an increased kyphosis and multilevel degenerative disk disease. There are stable mild deformities of several lower thoracic vertebrae. IMPRESSION: 1. There is no embolus, dissection or aneurysm. 2. Chronic pleural and parenchymal disease, most marked involving the right hemithorax. Final Report Dictated By: Ibrahima Segovia MD Signed By: Ibrahima Segovia MD Signed Dt/tm: 08/29/2010 09:53 Transcribed By: BSOscar Transcribed Dt/tm: 08/29/2010 09:24</br> Clinical History Current History ?PE soa coughing up blood since last night, smoker, recent admit for pneumonia Previous History/Surgery open heart twice, shoulder Contrast 100 ml 08/29/2010 Final Report Dictated By: Ibrahima Segovia MD Signed By: Ibrahima Segovia MD Signed Dt/tm: 08/29/2010 09:53 Transcribed By: BSOscar Transcribed Dt/tm: 08/29/2010 09:24 [facility] C Sp C Sp PATIENT: SANTOS THOMAS PHYSICIAN: Yared Gonzalez DO PROC: Sputum Culture SOURCE: Sputum SITE: SOURCE: [id number] STAINS / PREPARATIONS Gram Stain Report Verified:08/29/10 13:22 Minimal oral contamination - Inflammation present Many White Blood Cells Few epithelial cells Moderate Gram Positive Cocci FINAL REPORT Final Report Verified:08/31/10 07:44 Many Mixed upper respiratory is[place] 08/29/2010 [facility] CHEM12 eGFR >60 mL/min >=60 08/29/2010 N Estimated eGFR Non calculated using MDRD study equation Result Verified by Discern Expert. The MDRD GFR formula is valid only for adults between 18 and 85 years of age. [facility] CHEM12 ALT/GPT 46 IU/L 30 - 65 08/29/2010 N [facility] CHEM12 TCO2 28 mmol/L 24 - 32 08/29/2010 N [facility] -Auto Diff Eos 2 % 0 - 9 08/29/2010 N [facility] -RBC Morphology RBC Morph Normal Normal 08/29/2010 N [facility] CBC with Diff Platelet 142 x10^3/uL 150 - 400 2010 LOW [facility] C Blood C Blood PATIENT: SANTOS THOMAS PHYSICIAN: Yared Gonzalez DO PROC: Blood Culture SOURCE: Blood SITE: Right Forearm FT SOURCE: [id number] FINAL REPORT Final Report Verified:09/03/10 10:17 No growth at 5 days. 08/29/2010 [facility] Emergency Room Documents Emergency Room Documents Patient: SANTOS THOMAS Age: 70 years Sex: Male : 38 Associated Diagnoses: None Author: Yared Gonzalez DO Basic Information Vital signs: , First ED Vitals (08/29/10 07:20) Temp BP Pulse RR SAO2 O2 Flow Rate MAP 36.5 152/84 90 24 94 Most Recent Vitals (as of 08/29/10 07:20) Temp BP Pulse RR SAO2 O2 Flow Rate MAP 36.5 152/84 90 24 94 Vitals Range (08/29/10 07:20) Temp BP Pulse RR SAO2 O2 Flow Rate MAP 36.5 152 90 24 94 84 Oxygen saturation: Oxygen Therapy & Oxygenation Information, 08/29/10 07:20 Oxygen Therapy Room air Oxygen Saturation 94 % Measurements. 08/29/10 07:20 Height 172.7 cm Admission Weight 74.00 kg Scale Stated weight Admission BMI 24.8 Medications: . Medication Orders Sodium Chloride 0.9% (Saline Flush), 3 mL, IVP, Q8H(0400/1199/1999) Sodium Chloride 0.9% (Saline Flush), 3 mL, IVP, Q5MIN, PRN: Other (see comment) , before and after blood draw, blood administration or medication administration. methylprednisolone (Solu-Medrol), 125 mg, 2 mL, IVP, STAT Cfox-Ytfejgwpp-Tocgkgszhwi, 3 mL, NEB, STAT Prescriptions and Home Medications aspirin, 81 mg, daily PO, 0, 0 atenolol, 100 mg, daily PO, 0, 0 lisinopril, 10 mg, daily PO, 0, 0 phenobarbital, 200 mg, BID ipratropium (Atrovent HFA), 2 Puff(s), INH, QID albuterol (Albuterol HFA), 4 mg, INH, QID carbamazepine, 400 mg, 2 Tab, PO, BID warfarin (Coumadin), 5 mg, PO, Q24H, 7 Tab acetaminophen-hydrocodone (Lortab 5/500 oral tablet), 1 Tab, PO, Q4H, hold for sedation, PRN: pain famotidine, 20 mg, 1 Tab, PO, BID, d/c after steroids discontinued, 24 Tab prednisone, See Instructions, 40 mg PO Q24H x 3 days; 30 mg PO daily x 3 days; 20 mg PO daily x 3 days; 10 mg PO daily x 3 days, then D/C Vjna-Nppjiuinn-Gegcbbhgjbo, 3 mL, NEB, RQ4H, dispense 1 month supply with no refills temazepam (Restoril 15 mg oral capsule), 15 mg, 1 Cap, PO, AT BEDTIME, 30 Tab, PRN: sleep Allergies: . Allergic Reactions (Selected) Severity not Documented Penicillin- No reactions were documented. Notes: Chief Complaint from Nursing Triage Note : Reason for Visit Additional Info, 08/29/10 07:20 Reason for Visit Additional Info STATES HAS RECENTLY BEEN IN HOSPITAL WITH PNEMONIA STATES DOESN'T THINK HE IS OVER IT. STATES IS ALSO VERY WEAK . Health History ED ED Cardiac Medical History: Yes, open heart, ED Dyslipidemia: Yes, on meds ED Respiratory Medical History: Yes, copd ED Neurological Medical History: Yes, seziures ED Diabetes Medical History: No ED High Blood Pressure Medical History: Yes, on meds ED Currently : No ED LMP: No ED Previous Surgeries: Yes, left shoulder, left leg ED Other Medical Hx: No ED Smoking Hx: Yes, 1/2ppd Exposed to Second Hand Smoke: Yes ED Tetanus < 5 years: No History of Present Illness The patient is a 70 years old Male who presents with hemoptysis. Duration lasting 2 day(s). The course is increasing. Cough quality: moderate and productive with yellow sputum and with blood streaked sputum. The degree of severity is moderate. The mitigating factor is negative. The exacerbating factor is negative. The risk factor is COPD, Smoking, had pneumonia about 3 months ago and stayed in the hospital for 6 days of treatment. 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 Only has had a few times after coughing significantly that there were streaks of blood in the sputum.. Associated Symptoms Constitutional symptoms: Fever. ENT: Nasal congestion Other cardiovascular symptoms: Negative. Chest pain: Mild central when coughing and on deep breathinig. Other respiratory symptoms: Cough, wheezing. Shortness of breath: Moderate. Review of Systems Gastrointestinal symptoms: Negative. Musculoskeletal symptoms: Muscle pain. in chest area. Neurologic symptoms: Negative Lymphatic symptoms: Negative Other significant review of systems All other systems reviewed and otherwise negative Past Medical/ Family/ Social History Medical history: Reviewed as documented in chart. Surgical history: Reviewed as documented in chart. Family history: Reviewed as documented in chart. Social history: Reviewed as documented in chart. Physical Examination General appearance: Moderate distress. Skin: Warm. Dry. No pallor. No rash. Ears, nose, mouth and throat: Mouth: Dry mucous membranes Heart: Regular rate and rhythm, normal S1 & S2. Respiratory: Respirations nonlabored. There are fine expiratory wheezes throughout. His lung sounds are also diminished throughout. He right lower lobe has worse sounding bronchial sounds with a faint crackle. No rhonchi or rales are heard.. Abdominal: Normal bowel sounds. Soft. Nontender. Extremity: No tenderness. Trace pitting edema bilateral lower extremities.. Neurological: Alert and oriented times 3. No focal neuro deficits. Medical Decision Making Clinical work-up/Interpretation Orders Placed: Medications: Solu-medrol 125mg IV, Duoneb, Levaquin 500mg IV. Results: Lab View. 08/29/10 08:00 WBC 4.5 x10^3/uL RBC 4.15 x10^6/uL LOW Hgb 12.2 gm/dL LOW Hct 36.5 % LOW MCV 88 fL MCH 29.4 pg MCHC 33.4 gm/dL RDW 16.8 % HI Platelet 142 x10^3/uL LOW Segs 60 % Lymph 23 % Evans 15 % HI Eos 2 % Baso 1 % Abs Neutro 2.700 x10^3/uL Abs Lymph 1.020 x10^3/uL Abs Evans .690 x10^3/uL Abs Eos .080 x10^3/uL Abs Baso .030 x10^3/uL RBC Morph Normal Protime 10.1 Second(s) INR 0.91 Total Protein 6.9 gm/dL Albumin Level 3.1 gm/dL LOW Calcium 8.6 mg/dL Bili Total 0.2 mg/dL Alk Phos 168 IU/L HI Sodium 130 mmol/L LOW Potassium 3.5 mmol/L Chloride 95 mmol/L TCO2 28 mmol/L Glucose Level 110 mg/dL HI BUN 14 mg/dL Creatinine .7 mg/dL eGFR >60 mL/min eGFR () >60 mL/min ALT/GPT 46 IU/L AST/GOT 21 IU/L BNP 82 pg/mL Chest X-Ray: Interpretation by Radiologist, No acute changes, there are chronic lung changes.. Computed tomography (CT): Chest, With contrast, No PE, dissection or aneurysm. Pleural and parenchymal lung disease mostly in the right hemithorax., Interpretation by Radiologist. Calls-Consults: Time 08/29/10 10:47:00, Elder Yanez DO, Hospitalist, Called, Recommends: Admit to obs/tele. Impression and Plan COPD Exacerbation Hyponatremia - mild Hemoptysis - most likely due to bronchial trauma from coughing. Discharge plan Condition: Stable. Admit: Time 08/29/10 10:58:00, To Observation Telemetry Unit. Patient care transitioned to: Time: 08/29/10 10:58:00, Elder Yanez DO. Counseled: Patient, Regarding diagnosis, Regarding treatment plan, Regarding diagnostic results. Emergency Medical Treatment and Active Labor Act/Prudent layperson: Emergency Medical Condition Exists at Discharge: Present. 08/29/2010 [facility] C Blood C Blood PATIENT: SANTOS THOMAS PHYSICIAN: Yared Gonzalez DO PROC: Blood Culture SOURCE: Blood SITE: Right Antecubital FT SOURCE: [id number] FINAL REPORT Final Report Verified:09/03/10 10:17 No growth at 5 days. 08/29/2010 [facility] DX Chest 2 View DX Chest 2 View SANTOS THOMAS CHEST 2 VIEWS INDICATION: Fever, cough, short of breath. Comparison is to prior studies. In the 2 projections, the heart is not enlarged. There are wire sutures in the sternum. The lungs are over ventilated with increased AP diameter of the thorax. There is focal parenchymal density in the right lower lung and there is somewhat diffuse increased density through the right lung. At least some of this is probably pleural as seen on the lateral projection. There are increased peribronchial markings. A focal lung nodule is not seen and there does not appear to be pleural fluid. As compared to May 2010, there is perhaps a little more density in the right lung. IMPRESSION: Severe chronic lung disease. Nothing particularly suggesting pneumonia is seen at this time, but follow-up study suggested in view of the clinical history. Final Report Dictated By: Galen Erickson MD Signed By: Galen Erickson MD Signed Dt/tm: 08/29/2010 08:19 Transcribed By: AMANDA Transcribed Dt/tm: 08/29/2010 08:14</br> Clinical History Current History patient states recently admitted into hospital for pneumonia, today, fever, cough, soa, weakness Previous History/Surgery coronary bypass, eplieptic seizures, copd, htn, lt shoulder, lt leg, smoker 08/29/2010 Final Report Dictated By: Galen Erickson MD Signed By: Galen Erickson MD Signed Dt/tm: 08/29/2010 08:19 Transcribed By: AMANDA Transcribed Dt/tm: 08/29/2010 08:14 [facility] Note Urgent Care Note Patient: SANTOS THOMAS Age: 70 years Sex: Male : 38 Associated Diagnoses: None Author: Shelbi Alanis FNP-C Basic Information Vital signs: , First ED Vitals (08/27/10 11:17) Temp BP Pulse RR SAO2 O2 Flow Rate MAP 35.6 124/78 106 24 96 Most Recent Vitals (as of 08/27/10 11:17) Temp BP Pulse RR SAO2 O2 Flow Rate MAP 35.6 124/78 106 24 96 Vitals Range (08/27/10 11:17) Temp BP Pulse RR SAO2 O2 Flow Rate MAP 35.6 124 106 24 96 78 Oxygen saturation: Oxygen Therapy & Oxygenation Information, 08/27/10 11:17 Oxygen Saturation 96 % Measurements. 08/27/10 11:17 Height 172.7 cm Weight 69.500 kg BSA 1.8259 m2 Body Mass Index 23.3 Medications: . Prescriptions and Home Medications aspirin, 81 mg, daily PO, 0, 0 atenolol, 100 mg, daily PO, 0, 0 lisinopril, 10 mg, daily PO, 0, 0 phenobarbital, 200 mg, BID ipratropium (Atrovent HFA), 2 Puff(s), INH, QID albuterol (Albuterol HFA), 4 mg, INH, QID carbamazepine, 400 mg, 2 Tab, PO, BID warfarin (Coumadin), 5 mg, PO, Q24H, 7 Tab acetaminophen-hydrocodone (Lortab 5/500 oral tablet), 1 Tab, PO, Q4H, hold for sedation, PRN: pain famotidine, 20 mg, 1 Tab, PO, BID, d/c after steroids discontinued, 24 Tab prednisone, See Instructions, 40 mg PO Q24H x 3 days; 30 mg PO daily x 3 days; 20 mg PO daily x 3 days; 10 mg PO daily x 3 days, then D/C Mnrp-Lzjpmsbwv-Ryxrvfjylze, 3 mL, NEB, RQ4H, dispense 1 month supply with no refills temazepam (Restoril 15 mg oral capsule), 15 mg, 1 Cap, PO, AT BEDTIME, 30 Tab, PRN: sleep Allergies: . Allergic Reactions (Selected) Severity not Documented Penicillin- No reactions were documented. History of Present Illness Fell 5 days ago and hurt left shoulder unable to move it disabled, has seizures lives at the [place] Associated Symptoms Constitutional symptoms: emaciated elderly male. Other musculoskeletal symptoms: Negative. Stiffness: Left shoulder Neurologic injury: Negative Bleeding: Negative. Lymphatic symptoms: Negative Skin symptoms: Negative. Review of Systems Other significant review of systems All other systems reviewed and otherwise negative Past Medical/ Family/ Social History Medical history: Reviewed as documented in chart. Surgical history: Reviewed as documented in chart. Family history: Reviewed as documented in chart. Social history: Reviewed as documented in chart. Physical Examination General appearance: Severe distress. Skin: Warm. Dry. Ears, nose, mouth and throat: Tympanic membranes clear Neck: Supple. Heart: Regular rate and rhythm. Arm perfusion: Within normal limits Respiratory: Lungs: Rhonchi wheezes. Respirations: has COPD. Abdominal: Within normal limits Back: Nontender Shoulder: Severe left shoulder deformity tenderness. Clavicle: Within normal limits. Range of motion of the shoulders: Left shoulder abduction adduction extension flexion internal rotation external rotation abnormal limited by pain Other injury: Negative. Neurologic - Upper extremity: Within normal limits Medical Decision Making Clinical work-up/Interpretation Orders: Launch Orders.... Evaluation and Management: Office Visit Level 4 Est - 92158 (Completed): 08/27/10 12:32 Shoulder x-ray: impacted humoral head. . Impression and Plan Fracture of left shoulder (ICD9 812.00, Billing Diagnosis, Emergency medicine, Medical) Discharge plan Condition: Stable. Dispositioned: to Ortho today at 2:30PM, placed in shoulder sling.. Counseled: Patient, Friend, Regarding prescription. 08/27/2010 [facility] Ambulatory Depart Summary Ambulatory Depart Summary [facility] Dep[facility] Summary PERSON INFORMATION Name <%NAME%>SANTOS THOMAS<%END%> Age <%AGE%> 70 Years<%END%> <%%>1940 12:00 AM<%END%> Sex <%GENDER%>Male<%END%> Language <%LANGUAGE%>[place]<%END%> PCP <%PCP%>None, Stated<%END%> Marital Status <%MARITALSTAT%><%END%> Phone <%PHONE%> <%END%> Time Zone <%TIMEZONE%><%END%> MRN <%ALIASPMRN%>[id number]<%END%> Visit Id <%ALIASEVISITID%><%END%> Acct# <%ALIASEFIN NBR%>[id number]<%END%> Visit Reason <%RFV%>Shoulder Pain; NEW/ LEFT SHOULDER PAIN/ OLD INJURY<%END%> Specialty <%SPECIALTY%><%END%> Enc Type <%ENCNTRTYPE%>[facility]<%END%> Med Service <%MEDSERVICE%>OUTPT-Outpatient/Hospital<%END%> Referred by <%REFERREDBY%><%END%> Track Group <%TRACKGROUP%>[facility]<%END%> Discharge <%DISCHDTTM%>08/27/2010 12:07 PM<%END%> Tracking Id <%TRACKINGID%>[id number]<%END%> Checkout <%CHECKOUTDTTM%>08/27/2010 12:07 PM<%END%> Checkin <%CHECKINDTTM%>08/27/2010 10:37 AM<%END%> Acuity <%ACUITY%><%END%> Dispo Type <%DISDISP%>Home<%END%> Arrival <%ARRIVALDTTM%>08/27/2010 10:37 AM<%END%> Reg Status <%REGSTATUS%><%END%> LOS <%LOSTRACK%>000 01:30<%END%> Address: <%ADDRESS%>[address] [facility] [address]<%END%> PHYS DOC NOTES<%PHYDOC%><%END%> DEPART REASON INCOMPLETE INFORMATION<%DPTREASON%><% END%>PROVIDER INFORMATION <%PROVROLETBL%>Provider Role Assigned Unassigned Shelbi Alanis FNP-C [facility] Provider 08/27/2010 11:19 AM <%END%>VITALS INFORMATION Vital Sign Triage <%DTADTTM_1%><%END%> Latest <%DTADTTM%><%END%> Pain Intensity <%DTAED PAIN INTENSITY_1%><%END%><%DTAED MARTINEZ MIGUEL SCALE_1%><%DTAFLACC SCORE_1% ><%END%> <%DTAINTENSITY-PAIN 1%><%END%><%DTAFLACC SCORE%> Pulse Rate <%DTAPERIPHERAL PULSE RATE_1%><%END%> <%DTAPERIPHERAL PULSE RATE%><%END%> Respiratory Rate <%DTARESPIRATORY RATE_1%><%END%> <%DTARESPIRATORY RATE%><%END%> Blood Pressure <%DTASYSTOLIC BLOOD PRESSURE_1%><%END%> / <%DTADIASTOLIC BLOOD PRESSURE_1%>78 mmHg<%END%> <%DTASYSTOLIC BLOOD PRESSURE%><%END%> / <%DTADIASTOLIC BLOOD PRESSURE%>78 mmHg<% END%> LOCATION INFORMATION <%LOCTBL%>Arrival Nurse Unit Room Bed 08/27/2010 10:37 AM [facility] 08/27/2010 11:15 AM [facility] 10 1 08/27/2010 12:07 PM [facility] Checkout <%END%>ORDERS INFORMATION <%ORDNRESTBL%>Start Time Order Type Status Stop Time Provider 08/27/2010 12:04 PM Nurse PBB Level 3 (36-34) - 17051 Evaluation and Management Completed 08/27/2010 12:04 PM Shelbi Alanis FNP-C 08/27/2010 11:39 AM DX Shoulder Lt Min 2 View Radiology Ordered 08/27/2010 11:39 AM Manuel, Provider 08/27/2010 12:07 PM [facility] -[facility]inic [facility] Ordered 08/27/2010 12:07 PM Shelbi Alanis FNP-C 08/27/2010 12:07 PM 902 Sling Arm Med -Clinic Patient Care -Clinic Completed 08/27/2010 12:07 PM Shelbi Alanis FNP-C 08/27/2010 12:07 PM Ortho Supply/Treatment -Clinic Patient Care -Clinic Ordered 08/27/2010 12:07 PM Alanis, Shelbi A, ROLL COVERER-C <%END%>MEDICAL INFORMATION Allergy Info: <%ALLERGY%>penicillin<%END% > Prescriptions Given<%PRESCRIPTIONS%><%END%>DISCHARGE INFORMATION Discharge Disposition: <%DISDISP%>Home<%END%> Discharge Location: <%DISLOC%> Home<%END%>PATIENT EDUCATION INFORMATION Instructions: <%DISINSTRUCT%><% END%> Follow up: <%FOLLOWUPTABLE%>With: Address: When: [address] [place] [address] phone, [employer], Kauli (1) 08/27/10 02:30:00 Comments: <%END%>DIAGNOSIS<%DIAGNOSIS%><%END%> 08/27/2010 [facility] DX Shoulder Lt 2 View DX Shoulder Lt 2 View SANTOS SANTAMARIAKARLY LEFT SHOULDER INDICATION: Fall, shoulder pain. FINDINGS: AP internal, external, and Y views of left shoulder compared to 03/22 and show no acute displaced fractures. Humerus shows significant superior subluxation bordering on dislocation with narrowing of the acromiohumeral distance consistent with chronic rotator cuff tear. The articular surface is nearly completely subluxed off the glenoid. There has been prior acromioplasty. Adjacent ribs are unremarkable. Osteopenia. IMPRESSION: 1. No acute fracture left shoulder, although there is severe superior subluxation bordering on dislocation of the humerus nearly off the glenoid, most ikely related to full-thickness cuff tear. 2. Prior acromioplasty. Final Report Dictated By: Kaiden Larson MD Signed By: Kaiden Larson MD Signed Dt/tm: 08/27/2010 16:44 Transcribed By: RRR Transcribed Dt/tm: 08/27/2010 13:44</br> Clinical History Current History fell on shoulder 3-4 days ago and his having lots of pain in shoulder Previous History/Surgery none pertaining 08/27/2010 Final Report Dictated By: Kaiden Larson MD Signed By: Kaiden Larson MD Signed Dt/tm: 08/27/2010 16:44 Transcribed By: RRR Transcribed Dt/tm: 08/27/2010 13:44 [facility] Cardiology Documents Cardiology Documents 11/27/2006 [facility] Cardiology Documents Cardiology Documents 11/27/2006 [facility] Cardiology Documents Cardiology Documents 11/27/2006 [facility] Cardiology Documents Cardiology Documents 11/27/2006 [facility] Cardiology Documents Cardiology Documents 11/27/2006 [facility] Cardiology Documents Cardiology Documents 03/23/2005 [facility] Cardiology Documents Cardiology Documents 03/23/2005 [facility] Cardiology Documents Cardiology Documents 03/23/2005 [facility] Cardiology Documents Cardiology Documents 03/23/2005 [facility] Cardiology Documents Cardiology Documents 03/23/2005 [facility] Cardiology Documents Cardiology Documents 2005 [facility] Cardiology Documents Cardiology Documents 2005 [facility] Cardiology Documents Cardiology Documents 2005 [facility] Cardiology Documents Cardiology Documents 2005 [facility] Cardiology Documents Cardiology Documents 2005 [facility] Cardiology Documents Cardiology Documents 2005 [facility] Cardiology Documents Cardiology Documents 2005 [facility] Cardiology Documents Cardiology Documents 2005 [facility] Cardiology Documents Cardiology Documents 2005 [facility] Cardiology Documents Cardiology Documents 2005 [facility] Cardiology Documents Cardiology Documents 03/21/2005 [facility] Cardiology Documents Cardiology Documents 03/21/2005 [facility] Cardiology Documents Cardiology Documents 03/21/2005 [facility] Cardiology Documents Cardiology Documents 03/21/2005 [facility] Cardiology Documents Cardiology Documents 11/24/2003 [facility] Cardiology Documents Cardiology Documents 11/24/2003 [facility] Cardiology Documents Cardiology Documents 11/24/2003 [facility] Cardiology Documents Cardiology Documents 11/24/2003 [facility] Vital Signs Vital Sign Value Date Comments Source Temperature Oral 36.2 DegC [facility] Peripheral Pulse Rate 67 bpm 09/10/2010 [facility] Respiratory Rate 16 br/min [facility] Systolic Blood Pressure 161 mmHg 09/10/2010 [facility] Diastolic Blood Pressure 81 mmHg 09/10/2010 [facility] Mean Arterial Pressure. 107.67 mmHg 09/10/2010 [facility] Temperature Oral 36.5 DegC [facility] Apical Heart Rate 71 bpm [facility] Systolic Blood Pressure 149 mmHg 09/10/2010 [facility] Diastolic Blood Pressure 81 mmHg 09/10/2010 [facility] Mean Arterial Pressure. 103.67 mmHg 09/10/2010 [facility] Temperature Oral 37.7 DegC [facility] Peripheral Pulse Rate 97 bpm 09/10/2010 [facility] Respiratory Rate 20 br/min [facility] Systolic Blood Pressure 154 mmHg 09/10/2010 [facility] Diastolic Blood Pressure 122 mmHg 09/10/2010 [facility] Mean Arterial Pressure. 132.67 mmHg 09/10/2010 [facility] Temperature Oral 36.5 DegC [facility] Peripheral Pulse Rate 61 bpm 09/10/2010 [facility] Respiratory Rate 21 br/min [facility] Systolic Blood Pressure 156 mmHg 09/10/2010 [facility] Diastolic Blood Pressure 80 mmHg 09/10/2010 [facility] Mean Arterial Pressure. 105.33 mmHg 09/10/2010 [facility] Temperature Oral 36.9 DegC [facility] Peripheral Pulse Rate 75 bpm 09/09/2010 [facility] Respiratory Rate 22 br/min [facility] Systolic Blood Pressure 162 mmHg 09/09/2010 [facility] Diastolic Blood Pressure 87 mmHg 09/09/2010 [facility] Mean Arterial Pressure. 112.00 mmHg 09/09/2010 [facility] Temperature Oral 36.4 DegC [facility] Apical Heart Rate 76 bpm [facility] Respiratory Rate 16 br/min [facility] Systolic Blood Pressure 151 mmHg 09/09/2010 [facility] Diastolic Blood Pressure 74 mmHg 09/09/2010 [facility] Mean Arterial Pressure. 99.67 mmHg 09/09/2010 [facility] Oxygen Saturation 96 % 2010 [facility] Temperature Oral 36.5 DegC [facility] Apical Heart Rate 79 bpm [facility] Respiratory Rate 18 br/min [facility] Systolic Blood Pressure 163 mmHg 09/09/2010 [facility] Diastolic Blood Pressure 75 mmHg 09/09/2010 [facility] Mean Arterial Pressure. 104.33 mmHg 09/09/2010 [facility] Oxygen Saturation 96 % 2010 [facility] Temperature Oral 36.4 DegC [facility] Apical Heart Rate 80 bpm [facility] Systolic Blood Pressure 138 mmHg 09/09/2010 [facility] Diastolic Blood Pressure 72 mmHg 09/09/2010 [facility] Mean Arterial Pressure. 94.00 mmHg 09/09/2010 [facility] Oxygen Saturation 94 % 2010 [facility] Temperature Oral 36.4 DegC [facility] Apical Heart Rate 73 bpm [facility] Respiratory Rate 20 br/min [facility] Systolic Blood Pressure 143 mmHg 09/08/2010 [facility] Diastolic Blood Pressure 74 mmHg 09/08/2010 [facility] Mean Arterial Pressure. 97.00 mmHg 09/08/2010 [facility] Oxygen Saturation 98 % 2010 [facility] Temperature Oral 36.6 DegC [facility] Apical Heart Rate 75 bpm [facility] Respiratory Rate 18 br/min [facility] Systolic Blood Pressure 144 mmHg 09/08/2010 [facility] Diastolic Blood Pressure 70 mmHg 09/08/2010 [facility] Mean Arterial Pressure. 94.67 mmHg 09/08/2010 [facility] Oxygen Saturation 96 % 2010 [facility] Temperature Oral 36.6 DegC [facility] Apical Heart Rate 72 bpm [facility] Respiratory Rate 16 br/min [facility] Systolic Blood Pressure 138 mmHg 09/08/2010 [facility] Diastolic Blood Pressure 72 mmHg 09/08/2010 [facility] Mean Arterial Pressure. 94.00 mmHg 09/08/2010 [facility] Oxygen Saturation 92 % 2010 [facility] Temperature Oral 36.5 DegC [facility] Apical Heart Rate 74 bpm [facility] Respiratory Rate 18 br/min [facility] Systolic Blood Pressure 141 mmHg 09/08/2010 [facility] Diastolic Blood Pressure 70 mmHg 09/08/2010 [facility] Mean Arterial Pressure. 93.67 mmHg 09/08/2010 [facility] Oxygen Saturation 91 % 2010 [facility] Temperature Oral 36.9 DegC [facility] Apical Heart Rate 86 bpm [facility] Respiratory Rate 18 br/min [facility] Systolic Blood Pressure 130 mmHg 09/08/2010 [facility] Diastolic Blood Pressure 78 mmHg 09/08/2010 [facility] Mean Arterial Pressure. 95.33 mmHg 09/08/2010 [facility] Oxygen Saturation 94 % 2010 [facility] Temperature Oral 37.0 DegC [facility] Apical Heart Rate 73 bpm [facility] Respiratory Rate 23 br/min [facility] Systolic Blood Pressure 145 mmHg 09/08/2010 [facility] Diastolic Blood Pressure 71 mmHg 09/08/2010 [facility] Mean Arterial Pressure. 95.67 mmHg 09/08/2010 [facility] Oxygen Saturation 96 % 2010 [facility] Temperature Oral 36.8 DegC [facility] Apical Heart Rate 74 bpm [facility] Respiratory Rate 20 br/min [facility] Systolic Blood Pressure 142 mmHg 09/07/2010 [facility] Diastolic Blood Pressure 88 mmHg 09/07/2010 [facility] Mean Arterial Pressure. 106.00 mmHg 09/07/2010 [facility] Oxygen Saturation 96 % 2010 [facility] Temperature Oral 36.3 DegC [facility] Apical Heart Rate 71 bpm [facility] Systolic Blood Pressure 134 mmHg 09/07/2010 [facility] Diastolic Blood Pressure 93 mmHg 09/07/2010 [facility] Mean Arterial Pressure. 106.67 mmHg 09/07/2010 [facility] Oxygen Saturation 98 % 2010 [facility] Temperature Oral 36.5 DegC [facility] Peripheral Pulse Rate 79 bpm 09/07/2010 [facility] Respiratory Rate 18 br/min [facility] Systolic Blood Pressure 144 mmHg 09/07/2010 [facility] Diastolic Blood Pressure 84 mmHg 09/07/2010 [facility] Mean Arterial Pressure. 104.00 mmHg 09/07/2010 [facility] Oxygen Saturation 98 % 2010 [facility] Temperature Oral 36.8 DegC [facility] Apical Heart Rate 63 bpm [facility] Respiratory Rate 16 br/min [facility] Systolic Blood Pressure 127 mmHg 09/07/2010 [facility] Diastolic Blood Pressure 74 mmHg 09/07/2010 [facility] Mean Arterial Pressure. 91.67 mmHg 09/07/2010 [facility] Oxygen Saturation 96 % 2010 [facility] Temperature Oral 36.8 DegC [facility] Apical Heart Rate 102 bpm [facility] Respiratory Rate 20 br/min [facility] Systolic Blood Pressure 132 mmHg 09/07/2010 [facility] Diastolic Blood Pressure 61 mmHg 09/07/2010 [facility] Mean Arterial Pressure. 84.67 mmHg 09/07/2010 [facility] Oxygen Saturation 93 % 2010 [facility] Weight 67.200 kg 09/07/2010 [facility] Height 172.7 cm 09/07/2010 [facility] Current BMI 23 "" 09/07/2010 [facility] Temperature Oral 36.8 DegC [facility] Apical Heart Rate 112 bpm [facility] Respiratory Rate 20 br/min [facility] Systolic Blood Pressure 137 mmHg 09/07/2010 [facility] Diastolic Blood Pressure 66 mmHg 09/07/2010 [facility] Mean Arterial Pressure. 89.67 mmHg 09/07/2010 [facility] Oxygen Saturation 91 % 2010 [facility] Peripheral Pulse Rate 80 bpm 08/31/2010 [facility] Systolic Blood Pressure 144 mmHg 08/31/2010 [facility] Diastolic Blood Pressure 74 mmHg 08/31/2010 [facility] Mean Arterial Pressure. 97.33 mmHg 08/31/2010 [facility] Oxygen Saturation 96 % 2010 [facility] Systolic Blood Pressure 129 mmHg 08/31/2010 [facility] Diastolic Blood Pressure 63 mmHg 08/31/2010 [facility] Mean Arterial Pressure. 85.00 mmHg 08/31/2010 [facility] Temperature Oral 36.4 DegC [facility] Peripheral Pulse Rate 83 bpm 08/31/2010 [facility] Respiratory Rate 20 br/min [facility] Systolic Blood Pressure 127 mmHg 08/31/2010 [facility] Diastolic Blood Pressure 68 mmHg 08/31/2010 [facility] Mean Arterial Pressure. 87.67 mmHg 08/31/2010 [facility] Temperature Oral 36.4 DegC [facility] Temperature Oral 36.8 DegC [facility] Apical Heart Rate 71 bpm [facility] Respiratory Rate 18 br/min [facility] Systolic Blood Pressure 133 mmHg 08/30/2010 [facility] Diastolic Blood Pressure 64 mmHg 08/30/2010 [facility] Mean Arterial Pressure. 87.00 mmHg 08/30/2010 [facility] Temperature Oral 37.0 DegC [facility] Peripheral Pulse Rate 74 bpm 08/30/2010 [facility] Respiratory Rate 18 br/min [facility] Systolic Blood Pressure 122 mmHg 08/30/2010 [facility] Diastolic Blood Pressure 58 mmHg 08/30/2010 [facility] Mean Arterial Pressure. 79.33 mmHg 08/30/2010 [facility] Oxygen Saturation 94 % 2010 [facility] Temperature Oral 36.5 DegC [facility] Peripheral Pulse Rate 73 bpm 08/30/2010 [facility] Respiratory Rate 18 br/min [facility] Systolic Blood Pressure 105 mmHg 08/30/2010 [facility] Diastolic Blood Pressure 53 mmHg 08/30/2010 [facility] Mean Arterial Pressure. 70.33 mmHg 08/30/2010 [facility] Apical Heart Rate 72 bpm [facility] Systolic Blood Pressure 146 mmHg 08/30/2010 [facility] Diastolic Blood Pressure 69 mmHg 08/30/2010 [facility] Mean Arterial Pressure. 94.67 mmHg 08/30/2010 [facility] Temperature Oral 36.6 DegC [facility] Apical Heart Rate 86 bpm [facility] Respiratory Rate 20 br/min [facility] Systolic Blood Pressure 149 mmHg 08/30/2010 [facility] Diastolic Blood Pressure 67 mmHg 08/30/2010 [facility] Mean Arterial Pressure. 94.33 mmHg 08/30/2010 [facility] Temperature Oral 37.1 DegC [facility] Peripheral Pulse Rate 103 bpm 08/29/2010 [facility] Respiratory Rate 20 br/min [facility] Systolic Blood Pressure 148 mmHg 08/29/2010 [facility] Diastolic Blood Pressure 73 mmHg 08/29/2010 [facility] Mean Arterial Pressure. 98.00 mmHg 08/29/2010 [facility] Encounters Location Location Details Encounter Type Encounter Number Reason For Visit Attending Provider ADM Date DC Date Status Source [facility] Clinic ( Outpatient) [id number] INCREASING PACITY RT LOWER LOBE TAPIA ANILA 04/08/2007 04/08/2007 Active [facility] [address] [facility] [id number] Janneth Menonirpince 05/23/2010 05/23/2010 Active [facility] Inpatient [id number] RLL CAP COPD EXAC FAILED OPT RX Jose Mike 05/23/2010 05/28/2010 Active [facility] [address] [facility] [id number] Raymundo Sims 05/24/2010 Active [facility] [address] [facility] [id number] Lavon Fredo 05/24/2010 05/24/2010 Active [facility] [address] [facility] [id number] Jose Mckeon 05/26/2010 05/26/2010 Active [facility] [address] [facility] [id number] NEW/ LEFT SHOULDER PAIN/ OLD INJURY Shelbi Alanis 08/27/2010 08/27/2010 Active [facility] Clinic ( Outpatient) [id number] NEW/ LEFT SHOULDER PAIN/ OLD INJURY NIKKI SULLIVAN 08/27/2010 08/27/2010 Active [facility] [address] [facility] [id number] Janneth Rosario 08/29/2010 08/29/2010 Active [facility] Inpatient [id number] COPD EXAC HYPONATREMIA TATIANA ROSARIO 08/29/2010 09/01/2010 Active [facility] [address] [facility] [id number] Janneth Rosario 09/06/2010 09/06/2010 Active [facility] Inpatient [id number] MULTILOBAR PNEUMONIA, COPD EXAC, ETOH INTOX MASOOD COCHRAN 09/06/2010 09/09/2010 Active [facility] [address] [facility] [id number] Masood Cochran 09/08/2010 09/08/2010 Active [facility] [address] [facility] [id number] Tammy Haro 09/09/2010 09/09/2010 Active [facility] [address] [facility] [id number] Masood Cochran 09/09/2010 09/09/2010 Active [facility] Inpatient [id number] ACUTE AND CHRONIC ALCOHOL ABUSE ALTERED MENTAL STATUS MULTIPLE SUBS TAMMYBRITTNEY HARO 09/09/2010 09/10/2010 Active [facility] Recurring [id number] 486.0 AREF ISH 09/10/2010 09/12/2012 Active [facility] Procedures Plan of Care Social History Assessment and Plan Family History Value Date Source Advance Directives Order Name Results Value Date Source
[2016-11-28 10:52] VITALS: BP 127/56
[2016-11-28 11:36] LABS: BASOPHILS % (AUTO) 0 % (0-2); EOSINOPHILS # (AUTO) 0.1 10^3uL; EOSINOPHILS % (AUTO) 1 % (0-4); MEAN CORPUSCULAR HEMOGLOBIN 29.5 PG (26.0-34.0); MEAN CORPUSCULAR HGB CONC 33.2 g/dL (31.0-37.0); MEAN CORPUSCULAR VOLUME 89 FL (80-100); MEAN PLATELET VOLUME 11.1 FL (6.0-9.5); MONOCYTES # (AUTO) 0.6 X10^3; MONOCYTES % (AUTO) 9 % (3-11); NEUTROPHILS # (AUTO) 5.5 X10^3; NEUTROPHILS % (AUTO) 76 % (51-67); PLATELET COUNT 180 10^3uL (150-450); WHITE BLOOD COUNT 7.25 10^3uL (4.0-11.0)
[2016-11-28 11:48] LABS: ALKALINE PHOSPHATASE 120 U/L (38-126); ANION GAP 15.7 MEQ/L (3-15); BUN/CREATININE RATIO 28 (10-20); CALCULATED IONIZED CALCIUM 3.9 mg/dL (3.8-4.6); TOTAL PROTEIN 7.4 g/dL (6.4-8.5)
--- NOTE | 2016-11-28 14:38 | Diagnostic Imaging Report ---
INDICATION: Choking. COMPARISON: 05/16/2015 FINDINGS: There are heterogeneous consolidations in the right lung base, which are similar to prior examination. Ill-defined opacities in left lung base are also present. Stable prominence of the right hilum. Stable cardiomegaly with changes of CABG. No pleural effusion or pneumothorax. IMPRESSION: 1. Right basilar heterogeneous opacities have not significantly changed since 05/16/2015. However, these could be recurrent opacities from infection or aspiration. Dictated by: Dictated on workstation # [id number]
== END | disposition home or self-care (01) ==
LOC: EDUNIT# 10:36 → ED 10:39
DX: J44.9 Chronic obstructive pulmonary disease, unspecified (principal); F17.210 Nicotine dependence, cigarettes, uncomplicated
CPT/HCPCS: 36415; 71020; 80053; 82803; 83605; 83880; 84484; 85025; 87040; 94640; 99284; J7613

== ENCOUNTER 2016-12-08 16:38 | Emergency (ER) | payer MEDICARE, MEDICAID ==
[~2016-12-08] VITALS: Ht 177.8 cm; Wt 59.0 kg
[~2016-12-08 16:38] MED LIST changes: -ALBUTEROL 0.083% NEB SOLUTION 2.5 MG/3 ML VIAL INH ONE; -NS IV 500 ML 500 ML IV SCH; -SODIUM CHLORIDE FLUSH 10 ML SYR IV PRN; -SODIUM CHLORIDE FLUSH 3 ML SYR IV ONE
--- OUTSIDE RECORDS SUMMARY | 2016-12-08 16:47 | XMS REPORT | Continuity of Care Document ---
Author Author Eneida Monique Address Unknown Phone Unavailable Care Team Providers Care Check Out Cashier Name Role Phone [employer] Unavailable Unavailable Problems Problem Status Onset Date Classification Date Reported Comments Source Epileptic seizures Active Medical 11/27/2006 [facility] Angiography of coronary bypass, unilateral selective injection Active Medical 11/27/2006 [facility] Medications Medication Details Route Status Patient Instructions Ordering Provider Order Date Source Lortab 5/500 oral tablet PO Completed hold for sedation [facility] 05/28/2010 [facility] [place] Allergies, Adverse Reactions, Alerts Substance Category Reaction Severity Reaction type Status Date Reported Comments Source penicillin Datatype(AL1.2)-Drug Allergy ACTIVE 09/12/2012 [facility] NKA CANCELED 09/12/2012 [facility] Immunizations Immunization Date Given Site Status Last Updated Comments Source pneumococcal 23-valent vaccine 08/31/2010 Left Deltoid completed SEARS [facility] [place] Results Order Name Results Value Reference Range [...] He has been released recently from the [facility] where he was incarcerated for multiple serial offenses of driving while intoxicated apparently. He has an unstable social situation. He has apparently been band from the [facility], as well as another homeless nursing home in [facility]. He has 1 daughter who has not spoken to him in 25 years because of his behavior and alcoholism. He is medically stable for discharge at this time, but placement is pending. radiology services manager is working closely with him. He is at this time refusing to consider custodial placement or treatment for alcohol and drug [...] mg b.i.d.Levaquin 750 mg daily.Lisinopril 10 mg daily.Cottle nasal spray every 4 hours as needed.Phenobarbital 200 mg b.i.d.Prednisone taper as directed.Albuterol and Atrovent nebulizer every 4 hours. DIET: Step 1. No alcohol. ACTIVITY: As tolerated. FOLLOW-UP: Patient is to follow up with the [employer] in 1 week. DICTATED BY: Tammy Haro cc:[employer] TR: alma DR: DE: JOB#: [id number] [Electronically Signed on 09.10.2010 12:40 pm] Tammy Haro, DO </br> 09/10/2010 [Electronically Signed on 09.10.2010 12:40 pm] Tammy Haro DO [facility] Emergency Room Documents Emergency Room Documents Patient: SANTOS THOMAS Age: 70 years Sex: Male : 1940 Associated Diagnoses: None Author: Cam Nino MD Basic Information History source: Otolaryngology Rep, EMS. Vital signs: , First ED Vitals [...] Weight 67.400 kg Admission Weight 67.20 kg Baker Body Weight Adult 70.5 kg Percent Baker Body Weight 96 % Body Mass Index [...] carbamazepine, 400 mg, 2 Tab, PO, BID Icqk-Lgjsepvrs-Fojhuovdmns, 3 mL, NEB, RQ4H, dispense 1 month supply with no refills acetaminophen, 650 mg, 2 Tab, PO, Q4H, PRN: Temp >38.4 C Resp-Budesonide (budesonide 1 mg/2 mL inhalation suspension), See Instructions, 0.5 mg po q12 hours acetaminophen-hydrocodone (Lortab 5/500 oral tablet), 1 Tab, PO, Q4H, hold for sedation, 180 Tab, PRN: pain sodium chloride nasal (Cottle), 1 Cedar, NASAL, Q4H, 1 EA, PRN: Nasal Congestion [...] community aquired pneumonia and [facility]. Patient reportedly left and began drinking [...] rhythm. No ST-T changes. No ectopy. Normal KS & QRS intervals. Previous EKG available: no [...] Discharge, Emergency medicine, Medical) Altered mental status ([facility] [id number], Discharge, Medical) Discharge plan Condition: Unchanged. Admit: Time 09/09/2010 22:54:00, To Inpatient Unit. Emergency Medical Treatment and Active Labor Act/Prudent layperson: Emergency Medical Condition Exists at Discharge: Present. 09/09/2010 [facility] DRUGS Amphetamine Level Negative 09/09/2010 [address] [facility] CT Head W/O Contrast CT [...] Dt/tm: 09/09/2010 21:39 Transcribed Dt/tm: 09/09/2010 21:39 FAD ? IO CHEM12 eGFR >60 mL/min >=60 09/09/2010 N Estimated eGFR Non calculated using MDRD study equation Result Verified by Discern Expert. The MDRD GFR formula is valid only for adults between 18 and 85 years of age. FAD ? IO CHEM12 eGFR () >60 mL/min >=60 2010 N Estimated GFR for an calculated using MDRD study equation. Result Verified by Discern Expert. FAD ? IO ALC Alcohol Level 125.1 mg/ dL - <=3.0 09/09/2010 HI Results are for medical use only. FAD ? IO SILVIA Amylase 39 IU/L 23 - 85 09/09/2010 N FAD ? IO CHEM12 Glucose Level 64 mg/ dL 60 - 99 09/09/2010 N FAD ? IO CKMB CK MB 2.3 ng/mL 0.0 - 3.6 09/09/2010 N FAD ? IO CPK CPK 85 IU/L 21 - 232 09/09/2010 N FAD ? IO LIP Lipase 102 U/L 73 - 393 09/09/2010 N FAD ? IO TROPON Troponin <0.04 ng/mL - <=0.09 09/09/2010 N Result Range Troponin Interpretation <0.1 ng/ml No evidence of myocardial ischemia 0.1 - 0.6 ng/ml Possible myocardial ischemia (ACS) >0.6 ng/ml Acute myocardial infarction (AMI) [facility] APTT APTT 29.1 second(s) 20.5 - 31.0 09/09/2010 N FAD ? IO Protime INR 0.96 - <=1.20 09/09/2010 N Therapeutic range for INR is 2.0-3.0, except for mechanical prosthetic valves and recurrent myocardial infarction where therapeutic range is 2.5-3.5. FAD ? IO CHEM12 Sodium 129 mmol/L 135 - 145 09/09/2010 LOW [facility] [place] -RBC Morphology RBC Morph Normal Normal 09/09/2010 N Discern Expert [facility] -Auto Diff Abs Lymph 2.700 x10^3/uL .800 - 4.320 2010 N FAD ? IO CBC with Diff MCH 29.0 pg 27.0 - 31.0 09/09/2010 N [facility] DX Chest 1 View DX Chest 1 [...] Transcribed By: AC Transcribed Dt/tm: 09/09/2010 23:27 [facility] Discharge Summary Discharge Summary DATE OF ADMISSION: [...] every 4 hours as needed for pain. 11.Cottle nasal spray as needed. 12.Phenobarbital 200 mg b.i.d. 13.Albuterol and Atrovent nebulizers every 4 hours. 14.Prednisone taper as directed. DIET: Step 1. ACTIVITY: As tolerated. Smoking cessation and alcohol cessation were encouraged. FOLLOW-UP: Patient is to follow-up with [facility] in 1 week. He will have Home Health and home physical therapy as well. DICTATED BY: Tammy Haro cc: TR: len DR: DE: JOB#: [id number] [Electronically Signed on 09.10.2010 08:38 am] Tammy Haro DO </br> 09/09/2010 [Electronically Signed on 09.10.2010 08:38 am] Tammy Haro DO [facility] CBC (NO DIFFERENTIAL) RDW 16.2 % 11.7 - 16.0 2010 DC [facility] History and Physical History [...] problems. He is to follow up with [facility] in a week. We are trying to get home health and home PT. My intent was to try to get him to skilled, but he would not go. DICTATED BY: Masood Cochran cc: TR: ross DR: DE: JOB#: [id number] [Electronically Signed on 09.15.2010 01:15 pm] Masood [...] of coronary bypass, unilateral selective injection / 55360859 / Confirmed Epileptic seizures / 833377465 / Confirmed Fall risk / 2805121306 / Possible Pain / 71057684 / Confirmed Visual impairment / 9108831740 / Confirmed Procedure History: . left shoulder [...] Units Total Urine Voided mL 2850 Summary Opijoj=0365 Zanmld=4003 Umhlqaa=476 Medication Dose Frequency acetaminophen 650 mg=2 Tab [...] mg=2 mL RBID sodium chloride nasal 1 Cedar PRN, Q4H temazepam 15 mg=1 Cap PRN, [...] Auto: 70 23:15 Lymph Auto: 21 23:15 Harvey Auto: 8 23:15 Eos Auto: 0 23:15 Baso Auto: 0 23:15 Abs Neutro: 7.010 23:15 Abs Lymph: 2.140 23:15 Abs Harvey: .830 23:15 Abs Eos: .020 23:15 Abs [...] (Mildly). Psychiatric: Cooperative. Assessment Shortness of breath ([facility] [id number]) Pneumonia 486 (ICD9 486) COPD with acute exacerbation 491.21 (ICD9 491.21) Epilepsy, Unspecified, without Mention of Intractable Epilepsy (ICD9 345.90) Plan CONTINUE CURRENT ORDERS AND TREATMENTS We will continue IV fluids and antibiotics for min 72 hours. 09/08/2010 [facility] DX Chest 2 View DX Chest 2 View [facility] CHEST TWO VIEWS INDICATION: Evaluate for [...] Transcribed By: AC Transcribed Dt/tm: 09/07/2010 22:23 [facility] Care Progress Note Progress Note Patient: SANTOS THOMAS Age: 70 years Sex: Male : [birth year] Associated Diagnoses: None Author: Masood Cochran MD Subjective He is a little confused about some things. Objective Problem list: . All Problems Angiography of coronary bypass, unilateral selective injection / 48129133 / Confirmed Epileptic seizures / 320692578 / Confirmed Fall risk / 6060757954 / Possible Pain / 94548235 / Confirmed Visual impairment / 7132205719 / Confirmed Procedure History: . left shoulder [...] Units Total Urine Voided mL 350 Summary Wzdzmr=6639 Jjfsgt=726 Wcpjrbt=305 Medication Dose Frequency acetaminophen 650 mg=2 Tab [...] mg=2 mL RBID sodium chloride nasal 1 Cedar PRN, Q4H temazepam 15 mg=1 Cap PRN, [...] Auto: 70 23:15 Lymph Auto: 21 23:15 Harvey Auto: 8 23:15 Eos Auto: 0 23:15 Baso Auto: 0 23:15 Abs Neutro: 7.010 23:15 Abs Lymph: 2.140 23:15 Abs Harvey: .830 23:15 Abs Eos: .020 23:15 Abs [...] (Mildly). Psychiatric: Cooperative. Assessment Shortness of breath ([facility] [id number]) Pneumonia 486 (ICD9 486) COPD with acute exacerbation 491.21 (ICD9 491.21) Epilepsy, Unspecified, without Mention of Intractable Epilepsy (ICD9 345.90) Plan CONTINUE CURRENT ORDERS AND TREATMENTS WILL GET A PA AND LATERAL CHEST XRAY. 09/07/2010 [facility] CHEM12 eGFR >60 mL/min >=60 09/07/2010 N Estimated eGFR Non calculated using MDRD study equation Result Verified by Discern Expert. The MDRD GFR formula is valid only for adults between 18 and 85 years of age. [facility] ALC Alcohol Level 186.8 mg/ dL - <=3.0 09/07/2010 HI Results are for medical use only. [facility] CHEM12 Albumin Level 2.9 gm/ dL 3.4 - 5.0 09/07/2010 LOW [facility] Emergency Room Documents Emergency Room Documents Patient: [...] carbamazepine, 400 mg, 2 Tab, PO, BID Ouye-Fayiisqdl-Psjxvmpmocr, 3 mL, NEB, RQ4H, dispense 1 month [...] 180 Tab, PRN: pain sodium chloride nasal (Cottle), 1 Cedar, NASAL, Q4H, 1 EA, PRN: Nasal Congestion [...] bypass, unilateral selective injection / SNOMED CT 38612919 / Confirmed Epileptic seizures / SNOMED CT 375046831 / Confirmed Fall risk / SNOMED CT 9006838590 / Possible Added by discern expert due to documentation. Pain / SNOMED CT 16191254 / Confirmed Visual impairment / SNOMED CT 4408841742 / Confirmedper nurse's notes. Physical Examination General [...] Auto 70 % Lymph Auto 21 % Harvey Auto 8 % Eos Auto 0 % Baso Auto 0 % Abs Neutro 7.010 x10^3/uL Abs Lymph 2.140 x10^3/uL Abs Harvey .830 x10^3/uL Abs Eos .020 x10^3/uL Abs Baso .020 x10^3/uL RBC Morph Normal Results. 09/07/10 00:42 levofloxacin 750 mg mg 09/07/10 00:19 ceftriaxone 1 gm gm 09/07/10 00:18 methylprednisolone 125 mg mg 09/07/10 00:02 Javu-Ztecwqjfs-Uiqtwmhecsw Not Done: Task Duplication (Not Done) 09/06/10 [...] Therapy Room air Oxygen Saturation 93 % Rlfc-Dntpchpvl-Mtvsevxsuqr 3 mL mL Nebulizer Treatment Form 09/06/10 [...] x10^3/uL Segs 70 % Lymph 21 % Harvey 8 % Eos 0 % Baso 0 % Abs Neutro 7.010 x10^3/uL Abs Lymph 2.140 x10^3/uL Abs Harvey .830 x10^3/uL Abs Eos .020 x10^3/uL Abs [...] air Oxygen Saturation 95 % Skin Color Prosser Skin Description Warm, Dry Level of Consciousness Alert Eye Opening Response [place] Spontaneously Best Motor Response Jes Obeys commands [...] 10:17 No growth at 5 days. 09/06/2010 [facility] DX Chest 1 View DX [...] Transcribed By: AMADA Transcribed Dt/tm: 09/07/2010 00:02 [facility] History and Physical History and [...] of coronary artery disease and had an MO in the past. 2. Alcoholism. 3. Chronic [...] apparently his friend went back to the [facility] so he lives by himself. [...] 11. Carbamazepine 400 mg p.o. b.i.d. 12. Cottle spray nasal every 4 hours as needed [...] BY: Janneth Vigil cc:Lalo Lara MD TR: [id number] DR: 09/07/2010 02:48:53 DE: 09/07/2010 09:06:37 JOB#: [id number] /[id number] [Electronically Signed on 09.09.2010 06:19 am] Janneth Rosario MD </br> 09/06/2010 [Electronically Signed on 09.09.2010 06:19 am] Janneth Rosario MD [facility] Care Discharge Summary Discharge Summary DATE OF [...] will then be discharged to home today. pattern layout worker has also worked with the patient [...] at home. FOLLOWUP: Follow up new PCP. pattern layout worker to assist in getting a new [...] pain, dispensed 30, refills per PCP. 11. Cottle nasal mist, 1 spray nasally every 4 [...] today. DICTATED BY: Janneth Vigil cc: TR: [id number] DR: 09/01/2010 17:44:14 DE: 09/01/2010 19:49:03 JOB#: [id number] /[id number] [Electronically Signed on 09.02.2010 09:37 am] Janneth [...] Care Progress Note Progress Note SANTOS THOMAS [id number]: [id number]: [id number] Bing JAVED DEEavg51/14/11 10:50Insurance [facility] 31653Mma: 2MEDICARE-MCARE Observation Contacts NONE, PER PT AdmittingAttendingReferringConsulting Elder Yanez, Elder Adam, SUBJECTIVE: no fever. able to sleep last night. this am, woke up feeling congested and can hardly breath. OBJECTIVE: Vitals (24 hour summary) TemperatureHeart RateRespiratoryBP SysBP DiaO2 SatHeight Weight 36.4 - 37.065 - 8316 - 84785 - 65262 - 6892 - 63858.7 cm69.600 kg Physical Exam: Alert, oriented x 3, not in acute respiratory distress +nasal congestion increase wheezing Normal rate, regular rhythm, no murmur soft, nontender, good bowel sounds Good pulses, no edema Intake & Output Summary (08/30/10 07:00 to 08/31/10 06:59) IntakesUnitsTotal Oral BrznazcZ927 Sodium Chloride 0.9%mL906 fpyqogmnxrmteW072 methylprednisolonemL4 Oral ZogbodvL868 OutputsUnitsTotal Urine ZoqncjqO0900 Summary Zltzie=3929 Qesdao=9616 Balance=-200 MedicationDoseFrequency nolojfbkfrvqa602 mg=2 TabPRN, Q4H acetaminophen-hydrocodone1 TabPRN, Q4H ayrjaop550 mg=1 Tabdaily oiehfnfu387 mg=2 Tabdaily rblvszytaicxe017 mg=2 TabBID gsuncbgzwrop233 hj=427 mLQ24H tfyhmlxumr58 mg=1 Tabdaily tndkfqfbiphlnriwxk49 mg=1 mLQ8H, 3 Dose(s) gwtuxleoehlzmshqvv11 mg=1 mLQ12H, 2 Dose(s) nfvavgtduioqxnckat58 mg=1 mLQ24H, 1 Dose(s) morphine2 mg=1 mLPRN, Q2H morphine4 mg=1 mLPRN, Q4H ondansetron4 mg=2 mLPRN, Q6H mombkgfigvqd89 mg=1 Tabdaily qutctdzmjkdib828 mg=2 TabBID Ptbg-Jnailmxwg-4 mLRQ4H Ipratropium Ymkn-Nxatxsulj-6 mLPRN, RQ2H Ipratropium Resp-Budesonide0.5 mg=2 wUXP95I Sodium Chloride 0.9%3 mLQ8H(0400/1200/2000) Sodium Chloride 0.9%3 mLPRN, Q5MIN pidupdzbt20 mg=1 CapPRN, AT BEDTIME IV Drip MedicationDoseRate Sodium Chloride 0.9%1,000 mL75 mL/hr 1,000 mL Sodium Chloride 0.9%1,000 mL80 mL/hr with 20meq KCl 1,000 mL General Lab No General Lab results found Microbiology Procedure (Pending)Culture Start Dt/TmStatus Culture Blood08/29/10 09:23Preliminary Culture Blood08/29/10 09:24Preliminary Procedure (Completed)Completed Dt/Tm Culture Sssejq64/16/11 07:44 Culture Yrwfji34/16/11 07:48 Radiology Procedures No Radiology Procedure updates [...] Progress Note Progress Note SANTOS THOMAS W71 [id number]: [id number]: [id number] [address] [place], [place] 2108708/29/10 10:50Insurance [facility] [id number]: [facility] Observation Contacts NONE, PER PT AdmittingAttendingReferringConsulting Elder Yanez, Elder Adam, SUBJECTIVE: no fever. still sob. still doesn't feel good but better. able to walk around today with no sob. still feel weak OBJECTIVE: Vitals (24 hour summary) TemperatureHeart RateRespiratoryBP SysBP DiaO2 SatHeight Weight 36.5 - 37.167 - 25429 - 70869 - 43892 - 7392 - 79894.7 cm68.000 kg Physical Exam: Alert, oriented x 3, not in acute respiratory distress Moist mucous membrane wheezing all over Normal rate, regular rhythm, no murmur soft, nontender, good bowel sounds Good pulses, no edema Intake & Output Summary (08/29/10 07:00 to 08/30/10 06:59) IntakesUnitsTotal Oral PsrxljaX6965 Sodium Chloride 0.9%mL526 tkfanikfkT617 levofloxacinmL0 morphinemL1 methylprednisolonemL4 OutputsUnitsTotal Urine XfqpugxC1005 Summary Ccswsp=0611 Sxgwfb=9427 Nnlairk=4594 MedicationDoseFrequency uuiywwriaseha982 mg=2 TabPRN, Q4H acetaminophen-hydrocodone1 TabPRN, Q4H mg=1 Tabdaily vgzsvarp573 mg=2 Tabdaily gaayrykxwbdtf689 mg=2 TabBID [address]=154 mLQ24H adcjwbylmx52 mg=1 Tabdaily prtnyhpwgawjllhdmu02 mg=2 mLQ8H, 3 Dose(s) obnmgrvjsyvugrgcxt33 mg=1 mLQ8H, 3 Dose(s) hdtunfdjwqbradpfnq39 mg=1 mLQ12H, 2 Dose(s) qytnqwhcllinarxorv48 mg=1 mLQ24H, 1 Dose(s) morphine2 mg=1 mLPRN, Q2H morphine4 mg=1 mLPRN, Q4H ondansetron4 mg=2 mLPRN, Q6H euzphvirlyxk30 mg=1 Tabdaily vcbajduoknguq372 mg=2 TabBID pneumococcal 23-reztth77 mcg=0.5 mLX 1 DOSE vaccine Tuyr-Roiolxiaa-0 mLRQ4H Ipratropium Lits-Drmybstdn-2 mLPRN, RQ2H Ipratropium Resp-Budesonide0.5 mg=2 vGJO70Q Sodium Chloride 0.9%3 mLQ8H(0400/1200/1999) Sodium Chloride 0.9%3 mLPRN, Q5MIN luassmqae44 mg=1 CapPRN, AT BEDTIME IV Drip MedicationDoseRate Sodium Chloride 0.9%1,000 mL75 mL/hr 1,000 mL Sodium Chloride 0.9%1,000 mL80 mL/hr with 20meq KCl 1,000 mL General LabResultsCollected Dt/Tm Complete Blood Count WBC4.0 x10^3/uL08/30/10 04:15 RBCL 4.11 x10^6/uL08/30/10 04:15 HgbL 11.9 gm/dL08/30/10 04:15 HctL 36.3 %08/30/10 04:15 MCV88 fL08/30/10 04:15 MCH29.0 pg08/30/10 04:15 MCHC32.8 gm/dL08/30/10 04:15 RDWH 16.8 %08/30/10 04:15 Iakahpff329 x10^3/uL08/30/10 04:15 Differential Segs72 %08/30/10 04:15 LymphL 19 %08/30/10 04:15 Mono8 %08/30/10 04:15 Baso0 %08/30/10 04:15 Abs Neutro2.880 x10^3/uL08/30/10 04:15 Abs LymphL .750 x10^3/uL08/30/10 04:15 Abs Harvey.320 x10^3/uL08/30/10 04:15 Abs Baso.010 x10^3/uL08/30/10 04:15 RBC ZamowWlcrdj16/15/11 04:15 UA Dipstick UA MzkekWqbhhd71/14/11 16:05 UA EgalycQmlpe70/14/11 16:05 UA pHN 7.501 16:05 UA Spec GravN 1.9555608/29/10 16:05 UA NrrkwtqTzemglpz79/14/11 16:05 UA DwippvzOhakxpud33/14/11 16:05 UA FzmwyxzZnutjddk15/14/11 16:05 UA HdlaQoszpdqg20/14/11 16:05 UA XtkasYkmknias96/14/11 16:05 UA ZgvfntmgslujFgumyt55/14/11 16:05 UA FiwtzlvHkdgkknp70/14/11 16:05 UA Leuk KbqAtdipget02/14/11 16:05 General Chemistry Calcium9.0 mg/dL08/30/10 04:15 SodiumL 130 mmol/L08/30/10 04:15 Potassium4.2 mmol/L08/30/10 04:15 Naddfjkc64 mmol/L08/30/10 04:15 QRP770 mmol/L08/30/10 04:15 Glucose LevelH 144 mg/dL08/30/10 04:15 BUN12 mg/dL08/30/10 04:15 Creatinine.9 mg/dL08/30/10 04:15 eGFR>60 mL/min08/30/10 04:15 eGFR ()>60 mL/min08/30/10 04:15 XVN778 IU/L08/29/10 17:10 CK MB2.7 ng/mL08/29/10 17:10 Troponin<0.04 ng/mL08/29/10 17:10 Alcohol Level<3.0 mg/dL08/29/10 17:10 Drug Screen Amphetamine FznesFfozumhq29/14/11 16:05 Methamphet QberpTakgnlcg07/14/11 16:05 Barbiturate LevelA Uydmlvtc48/14/11 16:05 Benzodiazepn KyfetDzkylxlq68/14/11 16:05 Cocaine OthrsErcrmnqq08/14/11 16:05 Opiates LevelA Qufzobln73/14/11 16:05 Cannabinoids TaljvHawblzsf32/14/11 16:05 Tricyclic Ant MbxceEcgrvkkl54/14/11 16:05 PCP ZpiqyAstsbzuo67/14/11 16:05 Methadone WnfrsCnztikxx08/14/11 16:05 Aceta/Paracetamol JzkmzEczvwpss92/14/11 16:05 Microbiology Procedure (Pending)Culture Start Dt/TmStatus Culture Kbkbwb20/14/11 09:08Preliminary Culture Blood08/29/10 09:23Preliminary Culture Blood08/29/10 09:24Preliminary Culture Erehhh95/14/11 16:37Preliminary Radiology ProceduresLast Update Dt/TmStatus DX Chest 2 View08/29/10 08:19Auth (Verified) Impression: Severe chronic lung disease. Nothing particularly suggesting pneumonia is seen at this time, but follow-up study suggested in view of the clinical history CT Chest W/Jnuqbaby39/14/11 09:53Auth (Verified) Impression: 1. There is no [...] 2.7 ng/mL 0.0 - 3.6 08/29/2010 N [facility] Care CPK CPK 113 IU/L 21 - 232 08/29/2010 N [facility] Care TROPON Troponin <0.04 ng/mL - <=0.09 08/29/2010 N Result Range Troponin Interpretation <0.1 ng/ml No evidence of myocardial ischemia 0.1 - 0.6 ng/ml Possible myocardial ischemia (ACS) >0.6 ng/ml Acute myocardial infarction (AMI) [facility]C Alcohol Level <3.0 mg/dL - <=3.0 08/29/2010 N Results are for medical use only. [facility] DRUGS Methadone Level Negative 08/29/2010 N [facility] Care -UA Dipstick UA Blood Negative Negative 2010 N [facility] Care C Sp C Sp PATIENT: SANTOS THOMAS PHYSICIAN: Janneth Rosario MD PROC: Sputum Culture SOURCE: Sputum SITE: Lung FT SOURCE: STAINS / PREPARATIONS Gram Stain Report Verified:08/30/10 07:49 Minimal oral contamination Few White Blood Cells Rare epithelial cells Moderate Mixed upper respiratory israel FINAL REPORT Final Report Verified:08/31/10 07:48 Moderate Mixed upper respiratory israel 08/29/2010 [facility] History and Physical History and Physical DATE [...] MEDICAL HISTORY: 1. CAD. 2. History of MO in the past. 3. Alcoholism. 4. Seizure disorder and has grand mal seizures about 3-4 times per year. He used to be followed by a neurologist in [place] and would rather follow up with Dr. [...] BY: Janneth Vigil cc:Lalo Lara MD TR: [id number] DR: 08/29/2010 15:26:02 DE: 08/29/2010 16:47:42 JOB#: [id number] [Electronically Signed on 09.02.2010 09:08 am] Janneth Rosario MD </br> 08/29/2010 [Electronically Signed on 09.02.2010 09:08 am] Janneth Rosario MD FAD ? IO Protime Protime 10.1 second(s ) 9.5 - 12.0 08/29/2010 N FAD ? IO BNP BNP 82 pg/mL 0 - 100 08/29/2010 N BNP testing performed on backup instrument. Results are approximately 25% lower than the primary instrument. [facility] Chest W/Contrast CT Chest W/Contrast [facility] CT CHEST WITH CONTRAST INDICATION: Hemoptysis, [...] Transcribed By: BSOscar Transcribed Dt/tm: 08/29/2010 09:24 [facility] C Sp C Sp PATIENT: SANTOS THOMAS PHYSICIAN: Yared Gonzalez DO PROC: Sputum Culture SOURCE: Sputum SITE: SOURCE: [id number] STAINS / PREPARATIONS Gram Stain Report Verified:08/29/10 [...] SOURCE: Blood SITE: Right Forearm FT SOURCE: [id number] FINAL REPORT Final Report Verified:09/03/10 10:17 No [...] (Solu-Medrol), 125 mg, 2 mL, IVP, STAT Tafi-Nwydaafzw-Azciqjvprbh, 3 mL, NEB, STAT Prescriptions and Home [...] PO daily x 3 days, then D/C Lwgf-Yzksmfxue-Czxagbrmmfg, 3 mL, NEB, RQ4H, dispense 1 month [...] LOW Segs 60 % Lymph 23 % Harvey 15 % HI Eos 2 % Baso 1 % Abs Neutro 2.700 x10^3/uL Abs Lymph 1.020 x10^3/uL Abs Harvey .690 x10^3/uL Abs Eos .080 x10^3/uL Abs [...] Medical Condition Exists at Discharge: Present. 08/29/2010 [facility] C Blood C Blood PATIENT: SANTOS THOMAS PHYSICIAN: Yared Gonzalez DO PROC: Blood Culture SOURCE: Blood SITE: Right Antecubital FT SOURCE: [id number] FINAL REPORT Final Report Verified:09/03/10 10:17 No growth at 5 days. 08/29/2010 [facility] DX Chest 2 View DX Chest [...] PO daily x 3 days, then D/C Bpud-Oeisgxsqb-Wjankkprvzh, 3 mL, NEB, RQ4H, dispense 1 month supply with no refills temazepam (Restoril 15 mg oral capsule), 15 mg, 1 Cap, PO, AT BEDTIME, 30 Tab, PRN: sleep Allergies: . Allergic Reactions (Selected) Severity not Documented Penicillin- No reactions were documented. History of Present Illness Fell 5 days ago and hurt left shoulder unable to move it disabled, has seizures lives at the [place] Associated Symptoms Constitutional symptoms: emaciated elderly male. [...] Management: Office Visit Level 4 Est - 02008 (Completed): 08/27/10 12:32 Shoulder x-ray: impacted humoral head. . Impression and Plan Fracture of left shoulder (ICD9 812.00, Billing Diagnosis, Emergency medicine, Medical) Discharge plan Condition: Stable. Dispositioned: to Ortho today at 2:30PM, placed in shoulder sling.. Counseled: Patient, Friend, Regarding prescription. 08/27/2010 [facility] Ambulatory Depart Summary Ambulatory Depart Summary [facility] Depart Summary PERSON INFORMATION Name <%NAME%>SANTOS THOMAS<%END%> Age <%AGE%> 70 Years<%END%> <%%>1940 12:00 AM<%END%> Sex <%GENDER%>Male<%END%> Language <%LANGUAGE%>[place] Citizen<%END%> PCP <%PCP%>None, Stated<%END%> Marital Status <%MARITALSTAT%><%END%> Phone <%PHONE%> <%END%> Time Zone <%TIMEZONE%><%END%> MRN <%ALIASPMRN%>[id number]<%END%> Visit Id <%ALIASEVISITID%><%END%> Acct# <%ALIASEFIN NBR%>[id number]<%END%> Visit Reason <%RFV%>Shoulder Pain; NEW/ LEFT SHOULDER PAIN/ OLD INJURY<%END%> Specialty <%SPECIALTY%><%END%> Enc Type <%ENCNTRTYPE%>[facility]<%END%> Med Service <%MEDSERVICE%>OUTPT-Outpatient/Hospital<%END%> Referred by <%REFERREDBY%><%END%> Track Group <%TRACKGROUP%>[facility] [employer]<%END%> Discharge <%DISCHDTTM%>08/27/2010 12:07 PM<%END%> Tracking Id <%TRACKINGID%>[id number]<%END%> Checkout <%CHECKOUTDTTM%>08/27/2010 12:07 PM<%END%> Checkin <%CHECKINDTTM%>08/27/2010 10:37 AM<%END%> Acuity <%ACUITY%><%END%> Dispo Type <%DISDISP%>Home<%END%> Arrival <%ARRIVALDTTM%>08/27/2010 10:37 AM<%END%> Reg Status <%REGSTATUS%><%END%> LOS <%LOSTRACK%>000 01:30<%END%> Address: <%ADDRESS%>[address] [facility] [address]<%END%> PHYS DOC NOTES<%PHYDOC%><%END%> DEPART REASON INCOMPLETE INFORMATION<%DPTREASON%><% [...] Nurse Unit Room Bed 08/27/2010 10:37 AM [facility] 08/27/2010 11:15 AM [facility] 10 1 08/27/2010 12:07 PM [facility] Checkout <%END%>ORDERS INFORMATION <%ORDNRESTBL%>Start Time Order Type Status Stop Time Provider 08/27/2010 12:04 PM Nurse PBB Level 3 (52-00) - 38289 Evaluation and Management Completed 08/27/2010 12:04 PM [...] Ordered 08/27/2010 12:07 PM Alanis, Shelbi A, CUPOLA TENDER-C <%END%>MEDICAL INFORMATION Allergy Info: <%ALLERGY%>penicillin<%END% > Prescriptions Given<%PRESCRIPTIONS%><%END%>DISCHARGE INFORMATION Discharge Disposition: <%DISDISP%>Home<%END%> Discharge Location: <%DISLOC%> Home<%END%>PATIENT EDUCATION INFORMATION Instructions: <%DISINSTRUCT%><% END%> Follow up: <%FOLLOWUPTABLE%>With: Address: When: [address] [place] [address] phone, [employer], [employer] (1) 08/27/10 02:30:00 Comments: <%END%>DIAGNOSIS<%DIAGNOSIS%><%END%> 08/27/2010 [facility] DX Shoulder Lt 2 View DX Shoulder [...] Provider ADM Date DC Date Status Source [facility] ( Outpatient) [id number] INCREASING PACITY RT LOWER LOBE TAPIA ANILA 04/08/2007 04/08/2007 Active [facility] [address] [facility] [id number] Janneth Menoniprince 05/23/2010 05/23/[address] [facility] Inpatient [id number] RLL CAP COPD EXAC FAILED OPT RX Jose Mike 05/23/2010 05/28/2010 Active [facility] [address] [facility] [id number] Raymundo Sims 05/24/2010 Active [facility] [address] [facility] [id number] Lavon Fredo 05/24/2010 05/24/2010 Active [facility] [address] [facility] [id number] Jose Mckeon 05/26/2010 05/26/2010 Active [facility] [address] [facility] [id number] NEW/ LEFT SHOULDER PAIN/ OLD INJURY Shelbi Alanis 08/27/2010 08/27/2010 Active [facility] Clinic ( Outpatient) [id number] NEW/ LEFT SHOULDER PAIN/ OLD INJURY NIKKI SULLIVAN 08/27/2010 08/27/2010 Active [facility] [address] [facility] [id number] Janneth Rosario 08/29/2010 08/29/2010 Active [facility] Inpatient [id number] COPD EXAC HYPONATREMIA TATIANA ROSARIO 08/29/2010 09/01/2010 Active [facility] [address] [facility] [id number] Janneth Rosario 09/06/2010 09/06/2010 Active [facility] Inpatient [id number] MULTILOBAR PNEUMONIA, COPD EXAC, ETOH INTOX MASOOD COCHRAN 09/06/2010 09/09/2010 Active [facility] [address] [facility] [id number] Masood Cochran 09/08/2010 09/08/2010 Active [facility] [address] [facility] [id number] Tammy Haro 09/09/2010 09/09/2010 Active [facility] [address] [facility] [id number] Masood Cochran 09/09/2010 09/09/2010 Active [facility] Inpatient [id number] ACUTE AND CHRONIC ALCOHOL ABUSE ALTERED MENTAL STATUS MULTIPLE SUBS TAMMYBRITTNEY HARO 09/09/2010 09/10/2010 Active [facility] Recurring [id number] 486.0 AREF ISH 09/10/2010 09/12/2012 Active [facility] Procedures Plan of Care Social History Assessment and Plan Family History Value Date Source Advance Directives Order Name Results Value Date Source
--- OUTSIDE RECORDS SUMMARY | 2016-12-08 16:50 | XMS REPORT | Continuity of Care Document ---
Author Author Eneida Monique Address Unknown Phone Unavailable Care Team Providers Care Graduate Research Assistant Name Role Phone [employer] Unavailable Unavailable Problems Problem Status Onset Date Classification Date Reported Comments Source Epileptic seizures Active Medical 11/27/2006 [facility] Angiography of coronary bypass, unilateral selective injection Active Medical 11/27/2006 [facility] Medications Medication Details Route Status Patient Instructions Ordering Provider Order Date Source Lortab 5/500 oral tablet PO [facility] Allergies, Adverse Reactions, Alerts Substance Category Reaction Severity Reaction type Status Date Reported Comments Source penicillin Datatype(AL1.2)-Drug Allergy ACTIVE 09/12/2012 [facility] NKA CANCELED 09/12/2012 [facility] Immunizations Immunization Date Given Site Status Last Updated Comments Source pneumococcal 23-valent vaccine 08/31/2010 Left Deltoid completed SEARS [facility] Results Order Name Results Value Reference Range [...] He has been released recently from the [facility] where he was incarcerated for multiple serial offenses of driving while intoxicated apparently. He has an unstable social situation. He has apparently been band from the [facility], as well as another homeless prison in [place]. He has 1 daughter who has not spoken to him in 25 years because of his behavior and alcoholism. He is medically stable for discharge at this time, but placement is pending. coordinator cardiopulmonary services is working closely with him. He is at this time refusing to consider long term placement or treatment for alcohol and drug [...] mg b.i.d.Levaquin 750 mg daily.Lisinopril 10 mg daily.Otsego nasal spray every 4 hours as needed.Phenobarbital 200 mg b.i.d.Prednisone taper as directed.Albuterol and Atrovent nebulizer every 4 hours. DIET: Step 1. No alcohol. ACTIVITY: As tolerated. FOLLOW-UP: Patient is to follow up with the [employer] Board in 1 week. DICTATED BY: Tammy Haro cc:Social Welfare Board TR: alma DR: DE: JOB#: [id number] [Electronically Signed on 09.10.2010 12:40 pm] Tammy Haro, DO </br> 09/10/2010 [Electronically Signed on 09.10.2010 12:40 pm] Tammy Haro DO [facility] Emergency Room Documents Emergency Room Documents Patient: SANTOS THOMAS Age: 70 years Sex: Male : 1940 Associated Diagnoses: None Author: Cam Nino MD Basic Information History source: [employer], EMS. Vital signs: , First ED Vitals [...] Weight 67.400 kg Admission Weight 67.20 kg [place] Weight Adult 70.5 kg Percent [place] Body Weight 96 % Body Mass Index [...] carbamazepine, 400 mg, 2 Tab, PO, BID Qbfw-Mxnntbuhx-Ewnncodocsv, 3 mL, NEB, RQ4H, dispense 1 month supply with no refills acetaminophen, 650 mg, 2 Tab, PO, Q4H, PRN: Temp >38.4 C Resp-Budesonide (budesonide 1 mg/2 mL inhalation suspension), See Instructions, 0.5 mg po q12 hours acetaminophen-hydrocodone (Lortab 5/500 oral tablet), 1 Tab, PO, Q4H, hold for sedation, 180 Tab, PRN: pain sodium chloride nasal (Otsego), 1 [place], NASAL, Q4H, 1 EA, PRN: Nasal Congestion [...] community aquired pneumonia and was [facility]. Patient reportedly left and began drinking [...] rhythm. No ST-T changes. No ectopy. Normal CA & QRS intervals. Previous EKG available: no [...] Discharge, Emergency medicine, Medical) Altered mental status ([facility] [id number], Discharge, Medical) Discharge plan Condition: Unchanged. Admit: Time 09/09/2010 22:54:00, To Inpatient Unit. Emergency Medical Treatment and Active Labor Act/Prudent layperson: Emergency Medical Condition Exists at Discharge: Present. 09/09/2010 [facility] DRUGS Amphetamine Level Negative 09/09/[address] [facility] [address] Head W/O Contrast CT [...] Dt/tm: 09/09/2010 21:39 Transcribed Dt/tm: 09/09/2010 21:39 [facility] CHEM12 eGFR >60 mL/min >=60 09/09/2010 N Estimated eGFR Non calculated using MDRD study equation Result Verified by Discern Expert. The MDRD GFR formula is valid only for adults between 18 and 85 years of age. [facility] CHEM12 eGFR () >60 mL/min >=60 2010 N Estimated GFR for an calculated using MDRD study equation. Result Verified by Discern Expert. [facility] ALC Alcohol Level 125.1 mg/ dL - <=3.0 09/09/2010 HI Results are for medical use only. [facility] SILVIA Amylase 39 IU/L 23 - 85 09/09/2010 N [facility] CHEM12 Glucose Level 64 mg/ dL 60 - 99 09/09/2010 N [facility] CKMB CK MB 2.3 ng/mL 0.0 - 3.6 09/09/2010 N [facility] CPK CPK 85 IU/L 21 - 232 09/09/2010 N [facility] LIP Lipase 102 U/L 73 - 393 09/09/2010 N [facility] TROPON Troponin <0.04 ng/mL - <=0.09 09/09/2010 N Result Range Troponin Interpretation <0.1 ng/ml No evidence of myocardial ischemia 0.1 - 0.6 ng/ml Possible myocardial ischemia (ACS) >0.6 ng/ml Acute myocardial infarction (AMI) [facility] APTT APTT 29.1 second(s) 20.5 - 31.0 09/09/2010 N [facility] Protime INR 0.96 - <=1.20 09/09/2010 N Therapeutic range for INR is 2.0-3.0, except for mechanical prosthetic valves and recurrent myocardial infarction where therapeutic range is 2.5-3.5. [facility] CHEM12 Sodium 129 mmol/L 135 - 145 09/09/2010 LOW [facility] -RBC Morphology RBC Morph Normal Normal 09/09/2010 N Discern Expert [facility] -Auto Diff Abs Lymph 2.700 x10^3/uL .800 - 4.320 2010 N [facility] CBC with Diff MCH 29.0 pg 27.0 - 31.0 09/09/2010 N [facility] DX Chest 1 View DX Chest [...] Transcribed By: AC Transcribed Dt/tm: 09/09/2010 23:27 [facility] Discharge Summary Discharge Summary DATE OF [...] every 4 hours as needed for pain. 11.Otsego nasal spray as needed. 12.Phenobarbital 200 mg b.i.d. 13.Albuterol and Atrovent nebulizers every 4 hours. 14.Prednisone taper as directed. DIET: Step 1. ACTIVITY: As tolerated. Smoking cessation and alcohol cessation were encouraged. FOLLOW-UP: Patient is to follow-up with [facility] in 1 week. He will have Home Health and home physical therapy as well. DICTATED BY: Tammy Haro cc: TR: len DR: DE: JOB#: [id number] [Electronically Signed on 09.10.2010 08:38 am] Tammy Haro DO </br> 09/09/2010 [Electronically Signed on 09.10.2010 08:38 am] Tammy Haro DO [facility] CBC (NO DIFFERENTIAL) RDW 16.2 % 11.7 - 16.0 2010 [place] [facility] History and Physical History [...] problems. He is to follow up with [facility] in a week. We are trying to get home health and home PT. My intent was to try to get him to skilled, but he would not go. DICTATED BY: Masood Cochran cc: TR: ross DR: DE: JOB#: [id number] [Electronically Signed on 09.15.2010 01:15 pm] Masood Cochran MD </br> 09/09/2010 [Electronically Signed on 09.15.2010 01:15 pm] Masood Cocrhan MD [facility] Progress Note Progress [...] of coronary bypass, unilateral selective injection / [id number] / Confirmed Epileptic seizures / 133570851 / Confirmed Fall risk / 6956883946 / Possible Pain / 22724919 / Confirmed Visual impairment / 2517290872 / Confirmed Procedure History: . left shoulder [...] Units Total Urine Voided mL 2850 Summary Ssqkne=5212 Lgbkfs=5884 Oibwbuf=132 Medication Dose Frequency acetaminophen 650 mg=2 Tab [...] mg=2 mL RBID sodium chloride nasal 1 [place] PRN, Q4H temazepam 15 mg=1 Cap PRN, [...] Auto: 70 23:15 Lymph Auto: 21 23:15 [place] Auto: 8 23:15 Eos Auto: 0 23:15 Baso Auto: 0 23:15 Abs Neutro: 7.010 23:15 Abs Lymph: 2.140 23:15 Abs Telfair: .830 23:15 Abs Eos: .020 23:15 Abs [...] (Mildly). Psychiatric: Cooperative. Assessment Shortness of breath ([facility] [id number]) Pneumonia 486 (ICD9 486) COPD with acute exacerbation 491.21 (ICD9 491.21) Epilepsy, Unspecified, without Mention of Intractable Epilepsy (ICD9 345.90) Plan CONTINUE CURRENT ORDERS AND TREATMENTS We will continue IV fluids and antibiotics for min 72 hours. 09/08/2010 [facility] DX Chest 2 View DX Chest 2 View [facility] CHEST TWO VIEWS INDICATION: Evaluate for pneumonia. [...] Transcribed By: AC Transcribed Dt/tm: 09/07/2010 22:23 [facility] Care Progress Note Progress Note Patient: SANTOS THOMAS Age: 70 years Sex: Male : [birth year] Associated Diagnoses: None Author: Masood Cochran MD Subjective He is a little confused about some things. Objective Problem list: . All Problems Angiography of coronary bypass, unilateral selective injection / 11981137 / Confirmed Epileptic seizures / 913270373 / Confirmed Fall risk / 6789555453 / Possible Pain / 71851652 / Confirmed Visual impairment / 0527515144 / Confirmed Procedure History: . left shoulder [...] Units Total Urine Voided mL 350 Summary Drqreo=6902 Krvfhx=520 Stwjmzr=829 Medication Dose Frequency acetaminophen 650 mg=2 Tab [...] mg=2 mL RBID sodium chloride nasal 1 [place] PRN, Q4H temazepam 15 mg=1 Cap PRN, [...] Auto: 70 23:15 Lymph Auto: 21 23:15 [place] Auto: 8 23:15 Eos Auto: 0 23:15 Baso Auto: 0 23:15 Abs Neutro: 7.010 23:15 Abs Lymph: 2.140 23:15 Abs [place]air: .830 23:15 Abs Eos: .020 23:15 Abs [...] (Mildly). Psychiatric: Cooperative. Assessment Shortness of breath ([facility] [id number]) Pneumonia 486 (ICD9 486) COPD with acute exacerbation 491.21 (ICD9 491.21) Epilepsy, Unspecified, without Mention of Intractable Epilepsy (ICD9 345.90) Plan CONTINUE CURRENT ORDERS AND TREATMENTS WILL GET A PA AND LATERAL CHEST XRAY. 09/07/2010 [facility] CHEM12 eGFR >60 mL/min >=60 09/07/2010 N Estimated eGFR Non calculated using MDRD study equation Result Verified by Discern Expert. The MDRD GFR formula is valid only for adults between 18 and 85 years of age. [facility] ALC Alcohol Level 186.8 mg/ dL - <=3.0 09/07/2010 HI Results are for medical use only. [facility] CHEM12 Albumin Level 2.9 gm/ dL 3.4 - 5.0 09/07/2010 LOW [facility] Emergency Room Documents Emergency Room Documents [...] carbamazepine, 400 mg, 2 Tab, PO, BID Kell-Vnnlwieud-Gqbncctiqck, 3 mL, NEB, RQ4H, dispense 1 month [...] 180 Tab, PRN: pain sodium chloride nasal (Otsego), 1 [place], NASAL, Q4H, 1 EA, PRN: Nasal Congestion [...] bypass, unilateral selective injection / SNOMED CT 06905631 / Confirmed Epileptic seizures / SNOMED CT 238830128 / Confirmed Fall risk / SNOMED CT 4169699451 / Possible Added by discern expert due to documentation. Pain / SNOMED CT 84050278 / Confirmed Visual impairment / SNOMED CT 1334584808 / Confirmedper nurse's notes. Physical Examination General [...] Auto 70 % Lymph Auto 21 % [place] Auto 8 % Eos Auto 0 % Baso Auto 0 % Abs Neutro 7.010 x10^3/uL Abs Lymph 2.140 x10^3/uL Abs [place] .830 x10^3/uL Abs Eos .020 x10^3/uL Abs Baso .020 x10^3/uL RBC Morph Normal Results. 09/07/10 00:42 levofloxacin 750 mg mg 09/07/10 00:19 ceftriaxone 1 gm gm 09/07/10 00:18 methylprednisolone 125 mg mg 09/07/10 00:02 Bevp-Mhmggqfpa-Vnumckzqomf Not Done: Task Duplication (Not Done) 09/06/10 [...] Therapy Room air Oxygen Saturation 93 % Gocb-Noirvizve-Vwpzkpdhkql 3 mL mL Nebulizer Treatment Form 09/06/10 [...] x10^3/uL Segs 70 % Lymph 21 % [place] 8 % Eos 0 % Baso 0 % Abs Neutro 7.010 x10^3/uL Abs Lymph 2.140 x10^3/uL Abs [place] .830 x10^3/uL Abs Eos .020 x10^3/uL Abs [...] air Oxygen Saturation 95 % Skin Color Uncertain Skin Description Warm, Dry Level of Consciousness Alert Eye Opening Response [place] Spontaneously Best Motor Response Jes Obeys commands [...] 10:17 No growth at 5 days. 09/06/2010 [facility] DX Chest 1 View [...] Transcribed By: AMADA Transcribed Dt/tm: 09/07/2010 00:02 [facility] History and Physical History [...] of coronary artery disease and had an NE in the past. 2. Alcoholism. 3. Chronic [...] apparently his friend went back to the [facility] so he lives by himself. He has [...] 11. Carbamazepine 400 mg p.o. b.i.d. 12. Otsego spray nasal every 4 hours as needed [...] BY: Janneth Vigil cc:Lalo Lara MD TR: [id number] DR: 09/07/2010 02:48:53 DE: 09/07/2010 09:06:37 JOB#: [id number] [Electronically Signed on 09.09.2010 06:19 am] Janneth Rosario MD </br> 09/06/2010 [Electronically Signed on 09.09.2010 06:19 am] Janneth Rosario MD [facility] Care Discharge Summary Discharge Summary DATE OF [...] will then be discharged to home today. animal control licensing worker has also worked with the patient [...] at home. FOLLOWUP: Follow up new PCP. animal control licensing worker to assist in getting a new [...] pain, dispensed 30, refills per PCP. 11. Otsego nasal mist, 1 spray nasally every 4 [...] today. DICTATED BY: Janneth Vigil cc: TR: [id number] DR: 09/01/2010 17:44:14 DE: 09/01/2010 19:49:03 JOB#: [id number] /[id number] [Electronically Signed on 09.02.2010 09:37 am] Janneth [...] Care Progress Note Progress Note SANTOS THOMAS [id number]: [id number]: [id number] Bing JAVED MCCsaq56/14/11 10:50Insurance [facility] 33718Nty: 2MEDICARE-MCARE Observation Contacts NONE, PER PT AdmittingAttendingReferringConsulting Elder Yanez, Elder Adam, SUBJECTIVE: no fever. able to sleep last night. this am, woke up feeling congested and can hardly breath. OBJECTIVE: Vitals (24 hour summary) TemperatureHeart RateRespiratoryBP SysBP DiaO2 SatHeight Weight 36.4 - 37.065 - 8316 - 77315 - 48337 - 6892 - 95781.7 cm69.600 kg Physical Exam: Alert, oriented x 3, not in acute respiratory distress +nasal congestion increase wheezing Normal rate, regular rhythm, no murmur soft, nontender, good bowel sounds Good pulses, no edema Intake & Output Summary (08/30/10 07:00 to 08/31/10 06:59) IntakesUnitsTotal Oral QdtswqgF697 Sodium Chloride 0.9%mL906 rcsdmticneipkM772 methylprednisolonemL4 Oral ZlzuiovM753 OutputsUnitsTotal Urine EnasksfL1565 Summary Lcxfll=6442 Aollpv=2871 Balance=-200 MedicationDoseFrequency qlvpvmtzyiemz958 mg=2 TabPRN, Q4H acetaminophen-hydrocodone1 TabPRN, Q4H mg=1 Tabdaily quddshjz694 mg=2 Tabdaily omuzxrerlbnsj174 mg=2 TabBID lidwvlmmgoie891 kr=988 mLQ24H qhygabiezk01 mg=1 Tabdaily ytehdoomnxyzskrsbh73 mg=1 mLQ8H, 3 Dose(s) krzodpyiynttidvict05 mg=1 mLQ12H, 2 Dose(s) eficryianuwdjouxwk32 mg=1 mLQ24H, 1 Dose(s) morphine2 mg=1 mLPRN, Q2H morphine4 mg=1 mLPRN, Q4H ondansetron4 mg=2 mLPRN, Q6H qebjzvezpmgc64 mg=1 Tabdaily mg=2 TabBID Vrsb-Nxjtkoqfm-8 mLRQ4H Ipratropium Keow-Tkyezgojp-5 mLPRN, RQ2H Ipratropium Resp-Budesonide0.5 mg=2 tXFK09M Sodium Chloride 0.9%3 mLQ8H(0400/1200/2000) Sodium Chloride 0.9%3 mLPRN, Q5MIN tecipkrvy01 mg=1 CapPRN, AT BEDTIME IV Drip MedicationDoseRate Sodium Chloride 0.9%1,000 mL75 mL/hr 1,000 mL Sodium Chloride 0.9%1,000 mL80 mL/hr with 20meq KCl 1,000 mL General Lab No General Lab results found Microbiology Procedure (Pending)Culture Start Dt/TmStatus Culture Blood08/29/10 09:23Preliminary Culture Blood08/29/10 09:24Preliminary Procedure (Completed)Completed Dt/Tm Culture Cgymfr72/16/11 07:44 Culture Ipjqqv63/16/11 07:48 Radiology Procedures No Radiology Procedure updates [...] Progress Note Progress Note SANTOS THOMAS W71 [id number]: [id number]: [id number] [address] [place], [place] 1454608/29/10 10:50Insurance [facility] 83771Qnp: [facility] Observation Contacts NONE, PER PT AdmittingAttendingReferringConsulting Elder Yanez, Elder Adam, SUBJECTIVE: no fever. still sob. still doesn't feel good but better. able to walk around today with no sob. still feel weak OBJECTIVE: Vitals (24 hour summary) TemperatureHeart RateRespiratoryBP SysBP DiaO2 SatHeight Weight 36.5 - 37.167 - 67735 - 75200 - 15937 - 7392 - 47712.7 cm68.000 kg Physical Exam: Alert, oriented x 3, not in acute respiratory distress Moist mucous membrane wheezing all over Normal rate, regular rhythm, no murmur soft, nontender, good bowel sounds Good pulses, no edema Intake & Output Summary (08/29/10 07:00 to 08/30/10 06:59) IntakesUnitsTotal Oral UdxwgugB8009 Sodium Chloride 0.9%mL526 uwncnsfgwE690 levofloxacinmL0 morphinemL1 methylprednisolonemL4 OutputsUnitsTotal Urine KxmglwqT6207 Summary Avzcqs=5938 Islpip=0427 Zynwdlu=2674 MedicationDoseFrequency xhucmeoccsgvc713 mg=2 TabPRN, Q4H acetaminophen-hydrocodone1 TabPRN, Q4H mg=1 Tabdaily vfbaqfmt578 mg=2 Tabdaily mg=2 TabBID qiscjxbjbkzl638 jl=752 mLQ24H mg=1 Tabdaily kptoiawbuicwmvgupv79 mg=2 mLQ8H, 3 Dose(s) ajmoraoouzzqgjalaq52 mg=1 mLQ8H, 3 Dose(s) wdbtxetzrxlurmpdom76 mg=1 mLQ12H, 2 Dose(s) ihbtnvbneuhshpvzca68 mg=1 mLQ24H, 1 Dose(s) morphine2 mg=1 mLPRN, Q2H morphine4 mg=1 mLPRN, Q4H ondansetron4 mg=2 mLPRN, Q6H kfwfidytcaml28 mg=1 Tabdaily dkqzgjjzpsayc149 mg=2 TabBID pneumococcal 23- mcg=0.5 mLX 1 DOSE vaccine Lhzu-Ovradictf-0 mLRQ4H Ipratropium Mjja-Rnfmhcqik-3 mLPRN, RQ2H Ipratropium Resp-Budesonide0.5 mg=2 qOQY08Y Sodium Chloride 0.9%3 mLQ8H(0400/1200/1999) Sodium Chloride 0.9%3 mLPRN, Q5MIN mg=1 CapPRN, AT BEDTIME IV Drip MedicationDoseRate Sodium Chloride 0.9%1,000 mL75 mL/hr 1,000 mL Sodium Chloride 0.9%1,000 mL80 mL/hr with 20meq KCl 1,000 mL General LabResultsCollected Dt/Tm Complete Blood Count WBC4.0 x10^3/uL08/30/10 04:15 RBCL 4.11 x10^6/uL08/30/10 04:15 HgbL 11.9 gm/dL08/30/10 04:15 HctL 36.3 %08/30/10 04:15 MCV88 fL08/30/10 04:15 MCH29.0 pg08/30/10 04:15 MCHC32.8 gm/dL08/30/10 04:15 RDWH 16.8 %08/30/10 04:15 Mmbghtby458 x10^3/uL08/30/10 04:15 Differential Segs72 %08/30/10 04:15 LymphL 19 %08/30/10 04:15 Mono8 %08/30/10 04:15 Baso0 %08/30/10 04:15 Abs Neutro2.880 x10^3/uL08/30/10 04:15 Abs LymphL .750 x10^3/uL08/30/10 04:15 Abs Telfair.320 x10^3/uL08/30/10 04:15 Abs Baso.010 x10^3/uL08/30/10 04:15 RBC MrmelOumkwo94/15/11 04:15 UA Dipstick UA JmsafHuchio40/14/11 16:05 UA EyxegpIkjyx34/14/11 16:05 UA pHN 7.501 16:05 UA Spec GravN 1.8886908/29/10 16:05 UA PpxtynpYzlmetmj78/14/11 16:05 UA AraeudsTiaczuww40/14/11 16:05 UA WisxjkoAbfmgrpb53/14/11 16:05 UA ZfloUssheorv87/14/11 16:05 UA YhkreUkhjuvgq41/14/11 16:05 UA LjqbtwiylazcOylqel94/14/11 16:05 UA VhwaqigNxkniyrb19/14/11 16:05 UA Leuk WstUqsyktkk31/14/11 16:05 General Chemistry Calcium9.0 mg/dL08/30/10 04:15 SodiumL 130 mmol/L08/30/10 04:15 Potassium4.2 mmol/L08/30/10 04:15 Uhilyhjx06 mmol/L08/30/10 04:15 JXX905 mmol/L08/30/10 04:15 Glucose LevelH 144 mg/dL08/30/10 04:15 BUN12 mg/dL08/30/10 04:15 Creatinine.9 mg/dL08/30/10 04:15 eGFR>60 mL/min08/30/10 04:15 eGFR ()>60 mL/min08/30/10 04:15 QLT563 IU/L08/29/10 17:10 CK MB2.7 ng/mL08/29/10 17:10 Troponin<0.04 ng/mL08/29/10 17:10 Alcohol Level<3.0 mg/dL08/29/10 17:10 Drug Screen Amphetamine PanexEdprpsfs48/14/11 16:05 Methamphet UvtbqWnzprfxu86/14/11 16:05 Barbiturate LevelA Dpgfjqfr53/14/11 16:05 Benzodiazepn FdstaQflygtsm37/14/11 16:05 Cocaine CrspzEllwdvjk50/14/11 16:05 Opiates LevelA Rexftzrk46/14/11 16:05 Cannabinoids TmubhOycshtre48/14/11 16:05 Tricyclic Ant YxvztLhsokpus90/14/11 16:05 PCP BesfsVvzckyjw80/14/11 16:05 Methadone VvhkfQmjwfuww92/14/11 16:05 Aceta/Paracetamol OhxdhCjirbqhn89/14/11 16:05 Microbiology Procedure (Pending)Culture Start Dt/TmStatus Culture Ddmlhx64/14/11 09:08Preliminary Culture Blood08/29/10 09:23Preliminary Culture Blood08/29/10 09:24Preliminary Culture Jacwdi14/14/11 16:37Preliminary Radiology ProceduresLast Update Dt/TmStatus DX Chest 2 View08/29/10 08:19Auth (Verified) Impression: Severe chronic lung disease. Nothing particularly suggesting pneumonia is seen at this time, but follow-up study suggested in view of the clinical history CT Chest W/Nmhlbewm34/14/11 09:53Auth (Verified) Impression: 1. There is no [...] 2.7 ng/mL 0.0 - 3.6 08/29/2010 N [facility] CPK CPK 113 IU/L 21 - 232 08/29/2010 N [facility] TROPON Troponin <0.04 ng/mL - <=0.09 08/29/2010 N Result Range Troponin Interpretation <0.1 ng/ml No evidence of myocardial ischemia 0.1 - 0.6 ng/ml Possible myocardial ischemia (ACS) >0.6 ng/ml Acute myocardial infarction (AMI) [facility]C Alcohol Level <3.0 mg/dL - <=3.0 08/29/2010 N Results are for medical use only. [facility] DRUGS Methadone Level Negative 08/29/2010 N [facility] -UA Dipstick UA Blood Negative Negative 2010 N [facility] C Sp C Sp PATIENT: SANTOS THOMAS PHYSICIAN: Janneth Rosario MD PROC: Sputum Culture SOURCE: Sputum SITE: Lung FT SOURCE: STAINS / PREPARATIONS Gram Stain Report Verified:08/30/10 07:49 Minimal oral contamination Few White Blood Cells Rare epithelial cells Moderate Mixed upper respiratory israel FINAL REPORT Final Report Verified:08/31/10 07:48 Moderate Mixed upper respiratory israel 08/29/2010 [facility] History and Physical History and Physical [...] MEDICAL HISTORY: 1. CAD. 2. History of NE in the past. 3. Alcoholism. 4. Seizure disorder and has grand mal seizures about 3-4 times per year. He used to be followed by a neurologist in [place] and would rather follow up with Dr. [...] BY: Janneth Vigil cc:Lalo Lara MD TR: [id number] DR: 08/29/2010 15:26:02 DE: 08/29/2010 16:47:42 JOB#: [id number] [Electronically Signed on 09.02.2010 09:08 am] Janneth Rosario MD </br> 08/29/2010 [Electronically Signed on 09.02.2010 09:08 am] Janneth Rosario MD [facility] Protime Protime 10.1 second(s ) 9.5 - 12.0 08/29/2010 N [facility] BNP BNP 82 pg/mL 0 - 100 08/29/2010 N BNP testing performed on backup instrument. Results are approximately 25% lower than the primary instrument. [facility] CT Chest W/Contrast CT Chest W/Contrast [facility] CT CHEST WITH CONTRAST INDICATION: Hemoptysis, shortness [...] Transcribed By: BSOscar Transcribed Dt/tm: 08/29/2010 09:24 [facility] C Sp C Sp PATIENT: SANTOS THOMAS PHYSICIAN: Yared Gonzalez DO PROC: Sputum Culture SOURCE: Sputum SITE: SOURCE: [id number] STAINS / PREPARATIONS Gram Stain Report Verified:08/29/10 [...] SOURCE: Blood SITE: Right Forearm FT SOURCE: [id number] FINAL REPORT Final Report Verified:09/03/10 10:17 No [...] (Solu-Medrol), 125 mg, 2 mL, IVP, STAT Nrch-Hadqorlow-Adpfgylclso, 3 mL, NEB, STAT Prescriptions and Home [...] PO daily x 3 days, then D/C Kwqu-Nlhamkwog-Lvnruragzou, 3 mL, NEB, RQ4H, dispense 1 month [...] LOW Segs 60 % Lymph 23 % [place] 15 % HI Eos 2 % Baso 1 % Abs Neutro 2.700 x10^3/uL Abs Lymph 1.020 x10^3/uL Abs [place] .690 x10^3/uL Abs Eos .080 x10^3/uL Abs [...] Medical Condition Exists at Discharge: Present. 08/29/2010 [facility] C Blood C Blood PATIENT: SANTOS THOMAS PHYSICIAN: Yared Gonzalez DO PROC: Blood Culture SOURCE: Blood SITE: Right Antecubital FT SOURCE: [id number] FINAL REPORT Final Report Verified:09/03/10 10:17 No growth at 5 days. 08/29/2010 [facility] DX Chest 2 View DX Chest [...] PO daily x 3 days, then D/C Onar-Rpoyqxtkz-Zvgiosnnehy, 3 mL, NEB, RQ4H, dispense 1 month supply with no refills temazepam (Restoril 15 mg oral capsule), 15 mg, 1 Cap, PO, AT BEDTIME, 30 Tab, PRN: sleep Allergies: . Allergic Reactions (Selected) Severity not Documented Penicillin- No reactions were documented. History of Present Illness Fell 5 days ago and hurt left shoulder unable to move it disabled, has seizures lives at the [facility] Associated Symptoms Constitutional symptoms: emaciated elderly male. [...] Management: Office Visit Level 4 Est - 75172 (Completed): 08/27/10 12:32 Shoulder x-ray: impacted humoral head. . Impression and Plan Fracture of left shoulder (ICD9 812.00, Billing Diagnosis, Emergency medicine, Medical) Discharge plan Condition: Stable. Dispositioned: to Ortho today at 2:30PM, placed in shoulder sling.. Counseled: Patient, Friend, Regarding prescription. 08/27/2010 [facility] Ambulatory Depart Summary Ambulatory Depart Summary [facility] Depart Summary PERSON INFORMATION Name <%NAME%>SANTOS THOMAS<%END%> Age <%AGE%> 70 Years<%END%> <%%>1940 12:00 AM<%END%> Sex <%GENDER%>Male<%END%> Language <%LANGUAGE%>Scottish<%END%> PCP <%PCP%>None, Stated<%END%> Marital Status <%MARITALSTAT%><%END%> Phone <%PHONE%> <%END%> Time Zone <%TIMEZONE%><%END%> MRN <%ALIASPMRN%>[id number]<%END%> Visit Id <%ALIASEVISITID%><%END%> Acct# <%ALIASEFIN NBR%>[id number]<%END%> Visit Reason <%RFV%>Shoulder Pain; NEW/ LEFT SHOULDER PAIN/ OLD INJURY<%END%> Specialty <%SPECIALTY%><%END%> Enc Type <%ENCNTRTYPE%>[facility]<%END%> Med Service <%MEDSERVICE%>OUTPT-Outpatient/Hospital<%END%> Referred by <%REFERREDBY%><%END%> Track Group <%TRACKGROUP%>[facility]<%END%> Discharge <%DISCHDTTM%>08/27/2010 12:07 PM<%END%> Tracking Id <%TRACKINGID%>[id number]<%END%> Checkout <%CHECKOUTDTTM%>08/27/2010 12:07 PM<%END%> Checkin <%CHECKINDTTM%>08/27/2010 10:37 AM<%END%> Acuity <%ACUITY%><%END%> Dispo Type <%DISDISP%>Home<%END%> Arrival <%ARRIVALDTTM%>08/27/2010 10:37 AM<%END%> Reg Status <%REGSTATUS%><%END%> LOS <%LOSTRACK%>000 01:30<%END%> Address: <%ADDRESS%>[address] [facility] [address]<%END%> PHYS DOC NOTES<%PHYDOC%><%END%> DEPART REASON INCOMPLETE INFORMATION<%DPTREASON%><% [...] Nurse Unit Room Bed 08/27/2010 10:37 AM [facility] 08/27/2010 11:15 AM [facility] 10 1 08/27/2010 12:07 PM [facility] Checkout <%END%>ORDERS INFORMATION <%ORDNRESTBL%>Start Time Order Type Status Stop Time Provider 08/27/2010 12:04 PM Nurse PBB Level 3 (76-75) - 74774 Evaluation and Management Completed 08/27/2010 12:04 PM [...] Ordered 08/27/2010 12:07 PM Alanis, Shelbi A, ELECTORAL OFFICER-C <%END%>MEDICAL INFORMATION Allergy Info: <%ALLERGY%>penicillin<%END% > Prescriptions Given<%PRESCRIPTIONS%><%END%>DISCHARGE INFORMATION Discharge Disposition: <%DISDISP%>Home<%END%> Discharge Location: <%DISLOC%> Home<%END%>PATIENT EDUCATION INFORMATION Instructions: <%DISINSTRUCT%><% END%> Follow up: <%FOLLOWUPTABLE%>With: Address: When: [address] [place] [address] phone, [employer], [email or web address] (1) 08/27/10 02:30:00 Comments: <%END%>DIAGNOSIS<%DIAGNOSIS%><%END%> 08/27/2010 [facility] DX Shoulder Lt 2 View DX [...] Provider ADM Date DC Date Status Source [facility] ( Outpatient) [id number] INCREASING PACITY RT LOWER LOBE TAPIA ANILA 04/08/2007 04/08/2007 Active [facility] [address] [facility] [id number] Janneth Menoniprince 05/23/2010 05/23/2010 Active [facility] Inpatient [id number] RLL CAP COPD EXAC FAILED OPT RX Jose Mike 05/23/2010 05/28/2010 Active [facility] [address] [facility] [id number] Raymundo Sims 05/24/2010 Active [facility] [address] [facility] [id number] Lavon Fredo 05/24/2010 05/24/2010 Active [facility] [address] [facility] [id number] Jose Mckeon 05/26/2010 05/26/2010 Active [facility] [address] [facility] [id number] NEW/ LEFT SHOULDER PAIN/ OLD INJURY Shelbi Alanis 08/27/2010 08/27/2010 Active [facility] ( Outpatient) [id number] NEW/ LEFT SHOULDER PAIN/ OLD INJURY NIKKI SULLIVAN 08/27/2010 08/27/2010 Active [facility] [address] [facility] [id number] Janneth Rosario 08/29/2010 08/29/2010 Active [facility] In[facility] [id number] COPD EXAC HYPONATREMIA TATIANA ROSARIO 08/29/2010 09/01/2010 Active [facility] [address] [facility] [id number] Janneth Rosario 09/06/2010 09/06/2010 Active [facility] Inpatient [id number] MULTILOBAR PNEUMONIA, COPD EXAC, ETOH INTOX MASOOD COCHRAN 09/06/2010 09/09/2010 Active [facility] [address] [facility] [id number] Masood Cochran 09/08/2010 09/08/2010 Active [facility] [address] [facility] [id number] Tammy Haro 09/09/2010 09/09/2010 Active [facility] [address] [facility] [id number] Masood Cochran 09/09/2010 09/09/2010 Active [facility] Inpatient [id number] ACUTE AND CHRONIC ALCOHOL ABUSE ALTERED MENTAL STATUS MULTIPLE SUBS TAMMYBRITTNEY HARO 09/09/2010 09/10/2010 Active [facility] Recurring [id number] 486.0 AREF ISH 09/10/2010 09/12/2012 Active [facility] Procedures Plan of Care Social History Assessment and Plan Family History Value Date Source Advance Directives Order Name Results Value Date Source
[2016-12-08] MEDS ORDERED: DOCUSATE 100 MG/10 ML PO ONE (17:00)
--- NOTE | 2016-12-08 17:18 | NUR ---
pt STATES HIS LOWER ABD IS "KILLING" HIM. PT DECIDES TO TRY SITTING ON THE TOILET. CCL
[2016-12-08] MEDS ORDERED: BISACODYL 10 MG SUPP (DULCOLAX) PR ONE (18:00)
--- NOTE | 2016-12-08 18:09 | Diagnostic Imaging Report ---
CLINICAL INDICATION: Patient with abdominal pain, constipation. EXAM: X-ray of the chest and abdomen. COMPARISON: CT scan of the abdomen and pelvis without contrast dated 08/20/2016. FINDINGS: There is a moderate amount of stool seen from the transverse colon with scattered areas in the descending colon and within the rectosigmoid colon region. There is no evidence of intestinal obstruction or intra-abdominal free air. There is no gross evidence of urinary tract stones. Calcified abdominal aortic aneurysm is again seen. Vascular calcifications are noted. Pleural plaques/calcifications are again seen involving the right hemithorax with likely lung scarring. There is bibasilar lung scarring also noted. Bilateral apical pleural-parenchymal scarring is seen. Postop changes to the chest with sternotomy wires are noted. IMPRESSION: 1: There is a moderate amount of stool seen within the colon, as described above. There is no evidence of intestinal obstruction. 2: There is no significant change in this exam compared to the comparison study. Dictated by: Dictated on workstation # [id number]
--- NOTE | 2016-12-08 18:13 | NUR ---
PT STATES HE FEELS IF HE HAS A CUP OF COFFEE HE WILL BE ABLE TO HAVE A BM. WHEN SUPP PLACED BY THIS RN, SM HARD STOOL FORMED BETWEEN BUTTOCKS FOUND & WITH PLACEMENT, SOFT STOOL FELT IN VAULT. OK BY DR JOHN FERREIRA. CL
--- NOTE | 2016-12-08 18:18 | NUR ---
PT FEELS THE URGE TO URINATE. CL
--- NOTE | 2016-12-08 18:36 | NUR ---
PT CALLS FOR NURSE AFTER NURSE OUT APPX 2 MIN. EVERY TIME NURSE EXITS ROOM STATEINGHE NEEDS TO HAVE A BM. CL
--- NOTE | 2016-12-08 18:40 | NUR ---
pt STATES WHEN HE WAS UNABLE TO HOLD ENEMA HIS RECTUM REALLY HURT. PT HAS STOOL DIGITALLY REMOVED BY Adrián SMITH RN OF [facility] SOFT STOOL SEVERAL TIMES. PT STATES HE HAS HEMORRHOIDS. NO BLEEDING NOTED. CL
--- NOTE | 2016-12-08 19:00 | NUR ---
PT ASSISTED TO TOILET TO ATTEMPT BM. CL
--- NOTE | 2016-12-08 19:10 | NUR ---
report given & care tsf to abida subramanian rn. cl
--- NOTE | 2016-12-08 19:13 | NUR ---
PT ASSISTED BACK TO BED AFTER HE IS ABLE TO PASS SL SMALLER THAN BASEBALL SOFT BM. CL
--- NOTE | 2016-12-08 19:15 | NUR ---
pt assisted back to bed, he had more stool, a small to moderate amount of stool noted, soft.
--- NOTE | 2016-12-08 19:39 | NUR ---
[facility] notified of pt's discharge and will come to pick pt up.
--- NOTE | 2016-12-08 19:50 | NUR ---
[employer] Set Up Operator [facility] here to pick out hand pt, she dressed pt, pt tolerated well, pt states that he does feel better
[2016-12-08 20:06] VITALS: BP 134/64
== END 2016-12-08 20:05 | disposition home or self-care (01) ==
LOC: ED 16:39
DX: K59.00 Constipation, unspecified (principal)
CPT/HCPCS: 74022; 99284; A9270; 99282